=== PATIENT | female | born 1980 | race Caucasian/White ===

== ENCOUNTER 2017-09-09 20:42 | Emergency (ER) | payer MEDICAID ==
[2017-09-09] MEDS ORDERED: methylPREDNISolone Sodium Succinate 125 MG/2 ML SDV ONE (20:59)
[2017-09-09] MEDS ORDERED: diphenhydrAMINE 25 MG Cap ONE (21:00)
[2017-09-09] MEDS ORDERED: methylPREDNISolone Sodium Succinate 125 MG/2 ML SDV IM ONE (21:03)
[2017-09-09] MEDS ORDERED: diphenhydrAMINE 25 MG Cap PO ONE (21:03)
[2017-09-09 21:15] VITALS: BP 120/85
--- NOTE | 2017-09-09 21:35 | EDM.PDOC ---
ED HPI GENERAL MEDICAL PROBLEM - General Chief Complaint: Allergic Reaction Stated Complaint: ALLERGIC REACTION Time Seen by Provider: 09/09/17 21:15 Source of Information: Reports: Patient History Limitations: Reports: No Limitations - History of Present Illness INITIAL COMMENTS - FREE TEXT/NARRATIVE: 37-year-old female presents to the emergency room with complaints of reaction with associated blotchiness of her hands, and funny sensation in her throat. She denies difficulty breathing, shortness of breath. She denies any facial swelling. She states she had a couple beers this evening on her birthday and soon noticed some scratchiness and funny sensation in her throat and noticed blotching on her hands. She's had a similar episode with this also associated with alcohol a few years ago. She did stop drinking any alcohol for a year. She' s had a couple of drinks over the last 6 months and has not had recurrence until this evening. She took some Benadryl before coming in to the ER. No other complaints are voiced. Onset: Today Onset Date: 09/09/17 Onset Time: 20:30 Duration: Minutes: Location: Reports: Face, Lower Extremity, Left, Lower Extremity, Right Quality: Reports: Same as Previous Episode Severity: Mild Improves with: Reports: None Worsens with: Reports: Other (alcholol) Context: Reports: Activity Associated Symptoms: Reports: Rash. 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 Denies: Acetaminophen - Related Data Allergies Allergy/AdvReac Type Severity Reaction Status Date / Time No Known Drug Allergies Allergy Cannot Verified 09/09/17 21:15 Remember Home Meds: Home Meds Albuterol [Proventil Neb Soln] 0.63 mg NEB QIDRT PRN 05/12/16 [History] Albuterol/Ipratropium [DuoNeb 3.0-0.5 MG/3 ML] 3 ml INH QID PRN 05/12/16 [ History] Budesonide/Formoterol [Symbicort 160-4.5 Mcg Inhaler] 10.2 gm IH BID #2 hfa.aer.ad 05/12/16 [Rx] Montelukast Sodium [Singulair] 10 mg PO BEDTIME #30 tablet 05/12/16 [Rx] Ranitidine HCl [Zantac] 150 mg PO DAILY 07/11/16 [History] Fluticasone Propionate [Flonase Allergy Relief] 15.8 ml NS DAILY 10/23/16 [ History] Past Medical History - Past Health History Medical/Surgical History: Denies Medical/Surgical History HEENT History: Reports: Allergic Rhinitis, Impaired Vision, Sinusitis Respiratory History: Reports: Asthma Gastrointestinal History: Reports: GERD Genitourinary History: Reports: None 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 States she quit drinking about 1.5 years ago and has binge drank x1 since quitting. - Infectious Disease History Infectious Disease History: Reports: Chicken Pox - Past Surgical History Female Surgical History: Reports: Dilitation & Evacuation Social & Family History - Tobacco Use Smoking Status *Q: Former Smoker Years of Tobacco use: 14 Packs/Tins Daily: 2 Used Tobacco, but Quit: Yes Month Tobacco Last Used: 10 Second Hand Smoke Exposure: Yes - Caffeine Use Caffeine Use: Reports: Coffee, Soda - Recreational Drug Use Recreational Drug Use: Yes Drug Use in Last 12 Months: Yes Recreational Drug Type: Reports: Marijuana/Hashish Recreational Drug Use Frequency: Not Used In Over 1 Year - Living Situation & Occupation Living situation: Reports: Occupation: Unemployed ED ROS ALLERGIC REACTION - Review of Systems Review Of Systems: See Below Constitutional: Denies: Fever HEENT: Reports: Throat Swelling. Denies: Throat Pain Respiratory: Denies: Shortness of Breath, Wheezing, Cough Cardiovascular: Denies: Chest Pain GI/Abdominal: Denies: Abdominal Pain Musculoskeletal: Reports: No Symptoms Skin: Reports: Pruritis, Rash Neurological: Reports: No Symptoms Psychiatric: Reports: No Symptoms Hematologic/Lymphatic: Reports: No Symptoms Immunologic: Reports: No Symptoms ED EXAM GENERAL NO PERIP PULSE - Physical Exam Exam: See Below Exam Limited By: No Limitations General Appearance: Alert, WD/WN, No Apparent Distress Eye Exam: Bilateral Eye: EOMI, PERRL Nose: Normal Inspection Throat/Mouth: Normal Lips, Normal Teeth, Normal Gums, Normal Voice, No Airway Compromise, Other (mild swelling of the uvula) Head: Atraumatic, Normocephalic Neck: Normal Inspection, Supple Respiratory/Chest: No Respiratory Distress, Lungs Clear Cardiovascular: Normal Peripheral Pulses, Regular Rate, Rhythm Extremities: Normal Inspection, No Pedal Edema Neurological: Alert, Oriented, Normal Cognition, Normal Gait Psychiatric: Normal Affect, Normal Mood Skin Exam: Rash (bilateral hands) Course - Vital Signs Last Recorded V/S: Last Vital Signs Temp 98.1 F 09/09/17 21:11 Pulse 98 09/09/17 21:11 Resp 20 09/09/17 21:11 BP 120/85 09/09/17 21:11 Pulse Ox 96 09/09/17 21:11 - Orders/Labs/Meds Orders: Active Orders 24 hr Category Date Time Status Ranitidine [Zantac] Med 09/10/17 21:00 Ordered 300 mg PO BEDTIME Medication Orders Ranitidine HCl (Zantac) 300 mg PO BEDTIME LAURYN Last Admin: 09/09/17 21:54 Dose: 300 mg Meds: Medications Generic Name Dose Route Start Last Admin Trade Name Freq PRN Reason Stop Dose Admin Ranitidine HCl 300 mg 09/10/17 21:00 09/09/17 21:54 Zantac PO 300 mg BEDTIME LAURYN Administration Discontinued Medications Generic Name Dose Route Start Last Admin Trade Name Freq PRN Reason Stop Dose Admin Diphenhydramine HCl Confirm 09/09/17 21:00 09/09/17 21:04 Benadryl Administered 09/09/17 21:01 Not Given Dose 50 mg .ROUTE .STK-MED ONE Diphenhydramine HCl 50 mg 09/09/17 21:03 09/09/17 21:00 Benadryl PO 09/09/17 21:04 50 mg ONETIME ONE Administration Methylprednisolone Sodium Succinate Confirm 09/09/17 20:59 09/09/17 21:04 Solu-Medrol Administered 09/09/17 21:00 Not Given Dose 375 mg .ROUTE .STK-MED ONE Methylprednisolone Sodium Succinate 300 mg 09/09/17 21:03 09/09/17 21:10 Solu-Medrol IM 09/09/17 21:04 300 mg ONETIME ONE Administration Departure - Departure Time of Disposition: 22:11 Disposition: Home, Self-Care 01 Condition: Good Clinical Impression: Allergic reaction Qualifiers: Encounter type: initial encounter Qualified Code(s): T78.40XA - Allergy, unspecified, initial encounter - Discharge Information Instructions: Anaphylactic Reaction Referrals: Alansi Leblanc NP [Primary Care Provider] - Forms: ED Department Discharge Additional Instructions: 1. Benadryl 25-50 mg every 8 hours over the next 48 hours. 2. Avoid all alcohol. 3. Follow-up with your primary care in 48 hours. 4. Return to the ER if any of the above occurs, swelling of the face or lips, throat, increased difficulty breathing. - My Orders Last 24 Hours: My Active Orders 09/10/17 21:00 Ranitidine [Zantac] 300 mg PO BEDTIME - Assessment/Plan Last 24 Hours: My Active Orders 09/10/17 21:00 Ranitidine [Zantac] 300 mg PO BEDTIME Assessment:: Allergic reaction Plan: 1. Benadryl 25-50 mg every 8 hours over the next 48 hours. 2. Avoid all alcohol. 3. Follow-up with your primary care in 48 hours. 4. Return to the ER if any of the above occurs, swelling of the face or lips, throat, increased difficulty breathing.
== END 2017-09-09 22:10 | disposition home or self-care (01) ==
LOC: KA.ED 20:42
DX: T78.40XA Allergy, unspecified, initial encounter (principal); J45.909 Unspecified asthma, uncomplicated; Z87.891 Personal history of nicotine dependence; Z79.899 Other long term (current) drug therapy
CPT/HCPCS: 96372; 99283; A9270; J2930

== ENCOUNTER 2018-11-04 11:49 | Emergency (ER) | payer MEDICAID ==
[2018-11-04 12:21] VITALS: BP 140/88
--- NOTE | 2018-11-04 13:09 | EDM.PDOC ---
ED HPI GENERAL MEDICAL PROBLEM - General Chief Complaint: Respiratory Problem Stated Complaint: congested Time Seen by Provider: 11/04/18 12:45 Source of Information: Reports: Patient History Limitations: Reports: No Limitations - History of Present Illness INITIAL COMMENTS - FREE TEXT/NARRATIVE: Patient presents with itchy throat, stuffy nose, cough that started yesterday. She has asthma and has been wheezing recently because she is out of her Pulmicort and is waiting to get back on insurance to fill Rx. She is using her DuoNeb, albuterol inhaler and Singulair but no steroid. Two and a half weeks ago she had an exacerbation and was on oral steroids for a week but 3 days after finishing the course her wheezing returned. She thinks it will be 1-2 weeks yet before she can get insurance. 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: Reports: Other (see below) Other 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: duoneb at 10:30, albuterol MDI at 7 am Generalized Pain Score (Numeric/FACES): 6 - Related Data Allergies Allergy/AdvReac Type Severity Reaction Status Date / Time No Known Drug Allergies Allergy Cannot Verified 11/04/18 12:12 Remember Home Meds: Home Meds Albuterol/Ipratropium [DuoNeb 3.0-0.5 MG/3 ML] 3 ml INH QID 05/12/16 [History] Budesonide/Formoterol [Symbicort 160-4.5 Mcg Inhaler] 10.2 gm IH BID #2 hfa.aer.ad 05/12/16 [Rx] Montelukast Sodium [Singulair] 10 mg PO BEDTIME #30 tablet 05/12/16 [Rx] Ranitidine HCl [Zantac] 150 mg PO DAILY 07/11/16 [History] Fluticasone Propionate [Flonase Allergy Relief] 15.8 ml NS DAILY 10/23/16 [ History] Albuterol Sulfate [Proventil Hfa] 6.7 gm IH BID 11/04/18 [History] Past Medical History - Past Health History Medical/Surgical History: Denies Medical/Surgical History HEENT History: Reports: Allergic Rhinitis, Impaired Vision, Sinusitis Respiratory History: Reports: Asthma Gastrointestinal History: Reports: GERD Genitourinary History: Reports: None 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 States she quit drinking about 1.5 years ago and has binge drank x1 since quitting. - Infectious Disease History Infectious Disease History: Reports: Chicken Pox - Past Surgical History Female Surgical History: Reports: Dilitation & Evacuation Social & Family History - Tobacco Use Smoking Status *Q: Former Smoker Years of Tobacco use: 15 Packs/Tins Daily: 2 Used Tobacco, but Quit: Yes Month/Year Tobacco Last Used: 2017 Second Hand Smoke Exposure: Yes - Caffeine Use Caffeine Use: Reports: Coffee, Soda Other Caffeine Use: regular - Recreational Drug Use Recreational Drug Use: Yes Recreational Drug Type: Reports: Marijuana/Hashish Other Recreational Drug Type: quit using over 15 years Recreational Drug Use Frequency: Not Used In Over 6 Months - Living Situation & Occupation Living situation: Reports: Occupation: Unemployed ED ROS GENERAL - Review of Systems Review Of Systems: See Below Constitutional: Denies: Fever, Chills, Malaise, Weakness HEENT: Denies: Ear Pain, Throat Pain (doesn't hurt to swallow), Throat Swelling Respiratory: Reports: Shortness of Breath (mild-mod), Wheezing, Cough, Sputum ( clear) Cardiovascular: Denies: Chest Pain, Lightheadedness, Syncope Endocrine: Reports: No Symptoms GI/Abdominal: Denies: Abdominal Pain, Vomiting Musculoskeletal: Reports: No Symptoms Skin: Denies: Cyanosis, Jaundice, Mottled, Pallor, Diaphoresis Neurological: Denies: Confusion, Dizziness, Headache, Seizure, Syncope, Difficulty Walking, Weakness, Change in Speech Psychiatric: Denies: Agitation, Anxiety, Confusion ED EXAM, GENERAL - Physical Exam Exam: See Below Exam Limited By: No Limitations General Appearance: Alert, WD/WN, No Apparent Distress Eye Exam: Bilateral Eye: EOMI, Normal Inspection, PERRL Ears: Normal External Exam, Normal Canal, Hearing Grossly Normal, Normal TMs Nose: Normal Inspection, No Blood Throat/Mouth: Normal Inspection, Normal Lips, Normal Teeth, Normal Gums, Normal Oropharynx, Normal Voice, No Airway Compromise Head: Atraumatic, Normocephalic Neck: Normal Inspection, Supple, Non-Tender, Full Range of Motion Respiratory/Chest: No Respiratory Distress, No Accessory Muscle Use, Wheezing ( throughout). No: Decreased Breath Sounds, Crackles, Rales, Rhonchi, Stridor Cardiovascular: Regular Rate, Rhythm, No Murmur Extremities: Normal Range of Motion Neurological: Alert, Oriented, Normal Cognition, No Motor/Sensory Deficits Psychiatric: Normal Affect, Normal Mood Skin Exam: Warm, Dry, Intact, Normal Color, No Rash Course - Vital Signs Last Recorded V/S: Last Vital Signs Temp 99.6 F 11/04/18 12:15 Pulse 95 11/04/18 12:15 Resp 20 11/04/18 12:15 BP 140/88 11/04/18 12:15 Pulse Ox 95 11/04/18 12:15 - Orders/Labs/Meds Orders: Active Orders 24 hr Category Date Time Status predniSONE Med 11/04/18 13:45 Ordered 120 mg PO ONETIME Medication Orders Prednisone (Prednisone) 120 mg PO ONETIME LAURYN Last Admin: 11/04/18 13:44 Dose: 120 mg Meds: Medications Generic Name Dose Route Start Last Admin Trade Name Freq PRN Reason Stop Dose Admin Prednisone 120 mg 11/04/18 13:45 11/04/18 13:44 Prednisone PO 120 mg ONETIME LAURYN Administration Discontinued Medications Generic Name Dose Route Start Last Admin Trade Name Freq PRN Reason Stop Dose Admin Prednisone 120 mg 11/05/18 13:21 Prednisone PO 11/05/18 13:22 ONETIME ONE Prednisone Confirm 11/04/18 13:46 Prednisone Administered 11/04/18 13:47 Dose 10 mg .ROUTE .STK-MED ONE - Re-Assessments/Exams Free Text/Narrative Re-Assessment/Exam: 11/04/18 13:39 We looked for free samples and any other coupons for discounts on prescriptions until her insurance is restored. We did find a Symbicort coupon for free prescriptions for a year that we provided to patient and she was extremely thankful. We discussed that she may be able to reduce the length of time she is on the oral prednisone if she gets back on Symbicort soon. We also discussed her positive influenza A and she doesn't want to go on Tamiflu which is reasonable. After discussion of findings and treatment plan patient is discharged to home in stable condition. Departure - Departure Time of Disposition: 13:26 Disposition: Home, Self-Care 01 Condition: Good Clinical Impression: Influenza A Asthma exacerbation Qualifiers: Asthma severity: mild Asthma persistence: persistent Qualified Code(s): J45.31 - Mild persistent asthma with (acute) exacerbation URI (upper respiratory infection) Qualifiers: URI type: unspecified viral URI Qualified Code(s): J06.9 - Acute upper respiratory infection, unspecified - Discharge Information Instructions: Influenza, Adult, [id number] Referrals: Alanis Leblanc STATISTICAL PROGRAMMER [Primary Care Provider] - Forms: ED Department Discharge Additional Instructions: 1. Drink 8 cups of water daily. 2. Continue your asthma medications and get refills on the inhaled steroids as soon as possible. 3. Take the prednisone as directed. 4. Follow up with your PCP next week for recheck and to discuss options for getting your prescriptions while waiting for your insurance. - My Orders Last 24 Hours: My Active Orders 11/04/18 13:45 predniSONE 120 mg PO ONETIME - Assessment/Plan Last 24 Hours: My Active Orders 11/04/18 13:45 predniSONE 120 mg PO ONETIME
[2018-11-04] MEDS ORDERED: predniSONE 10 MG Tab PO SCH (13:45)
[2018-11-04] MEDS ORDERED: predniSONE 5 MG Tab ONE (13:46)
[2018-11-05] MEDS ORDERED: predniSONE 10 MG Tab PO ONE (13:21)
== END 2018-11-04 13:52 | disposition home or self-care (01) ==
LOC: KA.ED 11:49
DX: J10.1 Influenza due to other identified influenza virus with other respiratory manifestations (principal); J45.31 Mild persistent asthma with (acute) exacerbation; K21.9 Gastro-esophageal reflux disease without esophagitis; Z87.891 Personal history of nicotine dependence; Z79.899 Other long term (current) drug therapy
CPT/HCPCS: 87804; 99283; A9270

== ENCOUNTER 2018-11-08 14:33 | Inpatient (IN) | payer MEDICAID ==
[2018-11-08] MEDS ORDERED: HYDROmorphone 1 MG/ML Syringe IVPUSH ONE ×2 (14:47→15:40)
[2018-11-08] MEDS ORDERED: Ondansetron 4 MG/2 ML SDV IVPUSH ONE (14:47)
--- NOTE | 2018-11-08 15:00 | EDM.PDOC ---
ED HPI GENERAL MEDICAL PROBLEM - General Chief Complaint: Respiratory Problem Stated Complaint: Shortness of breath with chest pain Time Seen by Provider: 11/08/18 14:51 Source of Information: Reports: Patient, EMS, EMS Notes Reviewed, Provider History Limitations: Reports: No Limitations - History of Present Illness INITIAL COMMENTS - FREE TEXT/NARRATIVE: Patient is a 38-year-old female who presents via EMS to the emergency department this afternoon with a complaint of shortness of breath and chest pain. Patient was being seen at the [facility] in [facility], and the provider there felt that symptoms required aspirin and nitroglycerin. Both were given in the clinic, EKG was performed which showed sinus tachycardia, and patient was transported here. Upon presentation to the emergency department patient was in noticeable discomfort, and complaining of chest pain. Patient states that she was diagnosed with influenza A on November 04 and is currently only taking prednisone and Proventil inhaler. Patient states that she progressively was getting worse and had a follow-up visit today at the [facility]. Patient states that she does have a family cardiac history with a relative having a heart attack in their 50s. Patient denies fever, nausea, vomiting, diarrhea, abdominal pain, lower extremity edema, headache, any trauma, or history of similar symptoms in the past. Onset: Gradual Onset Date: 11/04/18 Duration: Day(s): Location: Reports: Chest Quality: Reports: Sharp Severity: Moderate Improves with: Reports: None Worsens with: Reports: None Context: Reports: Other (Diagnosed with influenza a on November 04). Denies: Activity, Exercise, Lifting, Sick Contact, Trauma Associated Symptoms: Reports: Chest Pain, Cough, Shortness of Breath. 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 Treatments, Nitroglycerin Middle Chest Pain Score (Numeric/FACES): 10 - Related Data Allergies Allergy/AdvReac Type Severity Reaction Status Date / Time No Known Drug Allergies Allergy Cannot Verified 11/08/18 15:05 Remember Home Meds: Home Meds Albuterol/Ipratropium [DuoNeb 3.0-0.5 MG/3 ML] 3 ml INH QID 05/12/16 [History] Montelukast Sodium [Singulair] 10 mg PO BEDTIME #30 tablet 05/12/16 [Rx] Ranitidine HCl [Zantac] 150 mg PO DAILY 07/11/16 [History] Fluticasone Propionate [Flonase Allergy Relief] 15.8 ml NS DAILY 10/23/16 [ History] Albuterol Sulfate [Proventil Hfa] 6.7 gm IH BID 11/04/18 [History] Acetaminophen [Acetaminophen Extra Strength] 1,000 mg PO Q6H PRN 11/08/18 [ History] Past Medical History - Past Health History Medical/Surgical History: Denies Medical/Surgical History HEENT History: Reports: Allergic Rhinitis, Impaired Vision, Sinusitis Respiratory History: Reports: Asthma Gastrointestinal History: Reports: GERD Genitourinary History: Reports: None LOOM DOFFER 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 States she quit drinking about 1.5 years ago and has binge drank x1 since quitting. - Infectious Disease History Infectious Disease History: Reports: Chicken Pox - Past Surgical History Female Surgical History: Reports: Dilitation & Evacuation Social & Family History - Caffeine Use Caffeine Use: Reports: Coffee, Soda Other Caffeine Use: regular - Living Situation & Occupation Living situation: Reports: Occupation: Unemployed ED ROS GENERAL - Review of Systems Review Of Systems: ROS reveals no pertinent complaints other than HPI. Constitutional: Reports: No Symptoms HEENT: Reports: No Symptoms Respiratory: Reports: Shortness of Breath Cardiovascular: Reports: Chest Pain Endocrine: Reports: No Symptoms GI/Abdominal: Reports: No Symptoms : Reports: No Symptoms Musculoskeletal: Reports: No Symptoms Skin: Reports: No Symptoms Neurological: Reports: No Symptoms Psychiatric: Reports: No Symptoms Hematologic/Lymphatic: Reports: No Symptoms Immunologic: Reports: No Symptoms ED EXAM, GENERAL - Physical Exam Exam: See Below Exam Limited By: No Limitations General Appearance: Alert, WD/WN, Moderate Distress Eye Exam: Bilateral Eye: Normal Inspection Nose: Normal Inspection Throat/Mouth: Normal Inspection, Normal Oropharynx, No Airway Compromise Head: Atraumatic, Normocephalic Neck: Normal Inspection Respiratory/Chest: Wheezing Cardiovascular: Tachycardia GI/Abdominal: Normal Bowel Sounds, Soft, Non-Tender, No Distention, No Abnormal Bruit, No Mass Back Exam: Normal Inspection. No: CVA Tenderness (L), CVA Tenderness (R) Extremities: Normal Inspection, No Pedal Edema Neurological: Alert, Oriented, Normal Cognition Psychiatric: Anxious Skin Exam: Warm, Dry, Intact, Normal Color, No Rash Lymphatic: No Adenopathy EKG INTERPRETATION EKG Date: 11/08/18 Time: 14:50 Rhythm: Other (Sinus tachycardia) Rate (Beats/Min): 136 [place]: Normal P-Wave: Present QRS: Normal ST-T: Normal QT: Normal Comparison: NA - No Prior EKG Course - Vital Signs Last Recorded V/S: Last Vital Signs Temp 96.9 F 11/08/18 15:33 Pulse 122 H 11/08/18 15:33 Resp 21 H 11/08/18 15:33 BP 125/84 11/08/18 15:33 Pulse Ox 95 11/08/18 15:34 - Orders/Labs/Meds Orders: Active Orders 24 hr Category Date Time Status Patient Status [ADT] Routine ADT 11/08/18 16:07 Ordered EKG Documentation Completion [RC] ASDIRECTED Care 11/08/18 14:48 Active Oxygen Therapy [RC] PRN Care 11/08/18 16:07 Ordered VTE/DVT Education [RC] PER UNIT ROUTINE Care 11/08/18 16:07 Ordered Vital Signs [RC] Q4H Care 11/08/18 16:07 Ordered CULTURE BLOOD [BC] Stat Lab 11/08/18 15:51 Ordered CULTURE BLOOD [BC] Stat Lab 11/08/18 15:51 Ordered CULTURE URINE [RM] Stat Lab 11/08/18 15:51 Ordered PROCALCITONIN [REF] Routine Lab 11/08/18 14:53 Received RESPIRATORY CULT [MREF] Stat Lab 11/08/18 15:36 Received UA W/MICROSCOPIC [URIN] Stat Lab 11/08/18 15:51 Ordered Sodium Chloride 0.9% @ 999 MLS/HR (1000ml) Med 11/08/18 15:47 Ordered Sodium Chloride 0.9% [Normal Saline] 1,000 ml IV .BOLUS Blood Culture x2 Reflex Set [OM.PC] Stat Oth 11/08/18 15:51 Ordered Resuscitation Status Routine Resus Stat 11/08/18 16:07 Ordered EKG 12 Lead [EK] Routine Ther 11/08/18 14:47 Ordered Medication Orders Sodium Chloride (Normal Saline) 1,000 mls @ 999 mls/hr IV .BOLUS ONE Stop: 11/08/18 16:47 Labs: Laboratory Tests 11/08/18 11/08/18 11/08/18 Range/Units 14:53 14:53 14:53 WBC 22.08 H (5.00-10.00) 10^3/uL RBC 4.97 (3.80-5.50) 10^6/uL Hgb 14.8 (12.0-16.0) g/dL Hct 43.4 (37.0-47.0) % MCV 87.3 (82.0-92.0) fL MCH 29.8 (27.0-31.0) pg MCHC 34.1 (32.0-36.0) g/dL RDW 14.3 (11.5-14.5) % Plt Count 271 (150-400) 10^3/uL MPV 9.2 (7.4-10.4) fL Immature Gran % (Auto) 0.4 (0.0-5.0) % Neut % (Auto) 83.6 H (50.0-70.0) % Lymph % (Auto) 10.2 L (20.0-40.0) % Allen % (Auto) 5.7 (2.0-8.0) % Eos % (Auto) 0.0 L (1.0-3.0) % Baso % (Auto) 0.1 (0.0-1.0) % Immature Gran # (Auto) 0.08 (0.00-0.50) 10^3/uL Neut # (Auto) 18.48 H (2.50-7.00) 10^3/uL Lymph # (Auto) 2.25 (1.00-4.00) 10^3/uL Allen # (Auto) 1.25 H (0.10-0.80) 10^3/uL Eos # (Auto) 0.00 L (0.10-0.30) 10^3/uL Baso # (Auto) 0.02 (0.00-0.10) 10^3/uL D-Dimer, Quantitative < 100 (<400) ng/mL Sodium 143 (136-145) mmol/L Potassium 3.3 (3.3-5.3) mmol/L Chloride 102 (98-115) mmol/L Carbon Dioxide 22.4 (21.0-32.0) mmol/L Anion Gap 21.9 H (5-15) mmol/L BUN 10 (6-25) mg/dL Creatinine 0.81 (0.51-1.17) mg/dL Est Cr Clr Drug Dosing TNP Estimated GFR (MDRD) > 60 mL/min Glucose 107 H (75 - 99) mg/dL Calcium 8.0 L (8.7-10.3) mg/dL Total Bilirubin 0.3 (0.2-1.0) mg/dL AST 68 H (15-37) U/L ALT 45 (12-78) U/L Alkaline Phosphatase 81 (46-116) IU/L Troponin I < 0.04 (0.00-0.070) ng/mL Total Protein 7.2 (6.4-8.2) g/dL Albumin 3.25 (3.00-4.80) g/dL Meds: Medications Generic Name Dose Route Start Last Admin Trade Name Freq PRN Reason Stop Dose Admin Sodium Chloride 1,000 mls @ 999 mls/hr 11/08/18 15:47 Normal Saline IV 11/08/18 16:47 .BOLUS ONE Discontinued Medications Generic Name Dose Route Start Last Admin Trade Name Freq PRN Reason Stop Dose Admin Hydromorphone HCl 0.5 mg 11/08/18 14:47 11/08/18 14:59 Dilaudid IVPUSH 11/08/18 14:48 0.5 mg ONETIME ONE Administration Hydromorphone HCl 0.5 mg 11/08/18 15:40 11/08/18 15:47 Dilaudid IVPUSH 11/08/18 15:41 0.5 mg ONETIME ONE Administration Methylprednisolone Sodium Succinate 125 mg 11/08/18 15:47 Solu-Medrol IVPUSH 11/08/18 15:48 ONETIME ONE Ondansetron HCl 4 mg 11/08/18 14:47 11/08/18 14:54 Zofran IVPUSH 11/08/18 14:48 4 mg ONETIME ONE Administration - Radiology Interpretation Free Text/Narrative:: Chest x-ray shows no acute cardiopulmonary process - Re-Assessments/Exams Free Text/Narrative Re-Assessment/Exam: 11/08/18 16:10 Patient afebrile, chest pain relieved, remains tachycardic at 120s, BP 123/71. Discussed case with Dr. Pina caro, patient will be admitted for observation. Blood and urine cultures ordered. Departure - Departure Time of Disposition: 16:12 Disposition: Refer to Observation Condition: Fair Clinical Impression: Influenza A Leukocytosis Qualifiers: Leukocytosis type: unspecified Qualified Code(s): D72.829 - Elevated white blood cell count, unspecified - Discharge Information Instructions: Influenza, Adult, [id number] Referrals: Alanis Leblanc, AIRCONDITIONING DRAFTING OFFICER [Primary Care Provider] - Forms: ED Department Discharge - My Orders Last 24 Hours: My Active Orders 11/08/18 14:47 EKG 12 Lead [EK] Routine 11/08/18 14:48 EKG Documentation Completion [RC] ASDIRECTED 11/08/18 14:53 PROCALCITONIN [REF] Routine 11/08/18 15:36 RESPIRATORY CULT [MREF] Stat 11/08/18 15:47 Sodium Chloride 0.9% @ 999 MLS/HR (1000ml) Sodium Chloride 0.9% [Normal Saline] 1,000 ml IV .BOLUS 11/08/18 15:51 CULTURE BLOOD [BC] Stat CULTURE BLOOD [BC] Stat CULTURE URINE [RM] Stat UA W/MICROSCOPIC [URIN] Stat Blood Culture x2 Reflex Set [OM.PC] Stat 11/08/18 16:07 Patient Status [ADT] Routine Oxygen Therapy [RC] PRN VTE/DVT Education [RC] PER UNIT ROUTINE Vital Signs [RC] Q4H Resuscitation Status Routine - Assessment/Plan Last 24 Hours: My Active Orders 11/08/18 14:47 EKG 12 Lead [EK] Routine 11/08/18 14:48 EKG Documentation Completion [RC] ASDIRECTED 11/08/18 14:53 PROCALCITONIN [REF] Routine 11/08/18 15:36 RESPIRATORY CULT [MREF] Stat 11/08/18 15:47 Sodium Chloride 0.9% @ 999 MLS/HR (1000ml) Sodium Chloride 0.9% [Normal Saline] 1,000 ml IV .BOLUS 11/08/18 15:51 CULTURE BLOOD [BC] Stat CULTURE BLOOD [BC] Stat CULTURE URINE [RM] Stat UA W/MICROSCOPIC [URIN] Stat Blood Culture x2 Reflex Set [OM.PC] Stat 11/08/18 16:07 Patient Status [ADT] Routine Oxygen Therapy [RC] PRN VTE/DVT Education [RC] PER UNIT ROUTINE Vital Signs [RC] Q4H Resuscitation Status Routine Assessment:: Influenza A, shortness of breath, chest pain Plan: Admitted for observation to Dr. Pina caro
[2018-11-08 15:33] LABS: ANION GAP 21.9 mmol/L (5-15); CHLORIDE,CL 102 mmol/L (98-115); SODIUM,NA 143 mmol/L (136-145)
--- NOTE | 2018-11-08 15:38 | CR ---
[id number] RAD/RAD Chest PA And Lateral EXAM: RAD Chest PA And Lateral CLINICAL DATA: CHEST PAIN COMPARISON: NO PREVIOUS SIMILAR EXAM IS AVAILABLE. FINDINGS: The lungs are clear. The cardiomediastinal contour is normal. The regional bones and soft tissues are unremarkable. IMPRESSION: NO ACUTE PROCESS. Surjit Chauhan MD 11/08/18 1536 Thank you for allowing us to participate in the care of your patient.
[2018-11-08] MEDS ORDERED: methylPREDNISolone Sodium Succinate 125 MG/2 ML SDV IVPUSH ONE (15:47)
[2018-11-08] MEDS ORDERED: Sodium Chloride 0.9% 1,000 ML IV ONE (15:47)
[2018-11-08] MEDS ORDERED: Indomethacin 50 MG Cap PO SCH (18:25)
[2018-11-08] MEDS ORDERED: Albuterol/Ipratropium 3.0-0.5 MG/3 ML Neb Soln NEB PRN (18:27)
[2018-11-08] MEDS ORDERED: [UNRECOGNIZED DRUG - REMARK] NS PRN (18:28)
[2018-11-08] MEDS: Oseltamivir 75 MG Cap PO SCH (18:41)
[2018-11-08] MEDS: Omeprazole 20 MG Cap.CR PO SCH (18:41)
[2018-11-08] MEDS ORDERED: Ibuprofen 600 MG Tab PO SCH (18:48)
[2018-11-08] MEDS: Ibuprofen 400 MG Tab PO SCH (19:32)
[2018-11-08] MEDS: Montelukast 10 MG Tab PO SCH (20:21)
[2018-11-08] MEDS ORDERED: Iopamidol 755 Mg/ML 75 ML Bottle IVPUSH ONE (21:05)
[2018-11-08] MEDS ORDERED: Sodium Chloride 0.9% 50 ML IV SCH (21:15)
[2018-11-08] MEDS: HYDROmorphone 1 MG/ML Syringe IVPUSH PRN (21:37)
[2018-11-08] MEDS ORDERED: Acetaminophen/HYDROcodone 325-5 MG Tab PO PRN (22:46)
[2018-11-09] MEDS: HYDROmorphone 1 MG/ML Syringe IVPUSH PRN (01:06)
[2018-11-09] MEDS ORDERED: Omeprazole 20 MG Cap.CR PO SCH (07:30)
[2018-11-09] MEDS: Omeprazole 20 MG Cap.CR PO SCH ×2 (07:46→17:12)
--- NOTE | 2018-11-09 07:56 | CT ---
[id number] CT/CT Chest W IV EXAM: CHEST CT WITH CONTRAST INDICATION: Chest pain and influenza A. COMPARISON: Chest radiograph same date. DISCUSSION: There are mild patchy airspace most prominent in the apical segment of the left lower lobe, but scattered throughout both lungs which is most consistent with pneumonia. Mild mediastinal lymphadenopathy is nonspecific, but likely reactive. No pleural or pericardial effusion. Normal heart size. Scattered diverticula in the partially imaged colon. Small sliding type hiatus hernia. Cholelithiasis without CT evidence of acute cholecystitis. The imaged upper abdomen and osseous structures are otherwise unremarkable. IMPRESSION: 1. Mild patchy bilateral infiltrates are most prominent in the left lower lobe. These are most consistent with infection and could represent a bacterial pneumonia superimposed on the reported influenza. Candido Gee MD 11/09/18 0755 Thank you for allowing us to participate in the care of your patient.
[2018-11-09 08:23] LABS: ANION GAP 13.2 mmol/L (5-15); CHLORIDE,CL 102 mmol/L (98-115); SODIUM,NA 138 mmol/L (136-145)
[2018-11-09] MEDS: Oseltamivir 75 MG Cap PO SCH ×2 (08:24→20:35)
[2018-11-09] MEDS: Ibuprofen 400 MG Tab PO SCH ×3 (08:24→18:34)
[2018-11-09] MEDS ORDERED: Nitroglycerin 0.4 MG Tab.SL SL PRN (08:41)
[2018-11-09] MEDS ORDERED: Atropine 0.1 MG/ML 10 ML Syringe IVPUSH PRN (08:41)
[2018-11-09] MEDS ORDERED: EPINEPHrine 1:10,000 1 MG/10 ML Syringe IVPUSH PRN (08:41)
[2018-11-09] MEDS ORDERED: Lidocaine 2% 100 MG/5 ML Syringe IVPUSH PRN (08:41)
--- NOTE | 2018-11-09 10:37 | PCM.HP ---
H&P History of Present Illness - General Date of Service: 11/09/18 Admit Problem/Dx: Admission Diagnosis/Problem Admission Diagnosis/Problem Influenza due to influenza A virus - History of Present Illness Initial Comments - Free Text/Narative: Leah, is a 38-year-old female who was admitted in observation through the ED due to shortness of breath and significant chest pain. He was evaluated at the [facility] day of admission for a routine follow-up from her recent ED visit in which she stated she started having chest pains approximately 10 AM that morning. Still complained of shortness of breath, scratchy throat with mucus production. She had significant chest pain 10/10 anterior chest however no radiation. In the clinic he was noted she has sinus tachycardia, EKG showed nonspecific T-wave abnormality, he received aspirin and nitroglycerin with no improvement of chest pain. She was subsequently transferred to the local ED at [place] for further workup. She has been positive for influenza A diagnosed November 04 during the ED visit. Ill family contacts with similar symptoms of influenza. Tamiflu was started last night. Middle Chest Pain Score (Numeric/FACES): 7 Back Pain Score (Numeric/FACES): 1 - Related Data Allergies/Adverse Reactions: Allergies Allergy/AdvReac Type Severity Reaction Status Date / Time No Known Drug Allergies Allergy Cannot Verified 11/08/18 15:05 Remember Home Medications: Home Meds Albuterol/Ipratropium [DuoNeb 3.0-0.5 MG/3 ML] 3 ml INH QID PRN 05/12/16 [ History] Montelukast Sodium [Singulair] 10 mg PO BEDTIME #30 tablet 05/12/16 [Rx] Ranitidine HCl [Zantac] 150 mg PO DAILY 07/11/16 [History] Fluticasone Propionate [Flonase Allergy Relief] 15.8 ml NS DAILY PRN 10/23/16 [ History] Albuterol Sulfate [Proventil Hfa] 6.7 gm IH QID PRN 11/04/18 [History] Acetaminophen [Acetaminophen Extra Strength] 1,000 mg PO Q6H PRN 11/08/18 [ History] Albuterol/Ipratropium [DuoNeb 3.0-0.5 MG/3 ML] 3 ml NEB Q6HR PRN #10 neb [Rx] Levofloxacin 750 mg PO DAILY #5 tablet 11/11/18 [Rx] Past Medical History - Past Health History Medical/Surgical History: Denies Medical/Surgical History HEENT History: Reports: Allergic Rhinitis, Impaired Vision, Sinusitis Respiratory History: Reports: Asthma Other Respiratory History: Diagnosed with influeza A on 11/04/18 Gastrointestinal History: Reports: GERD Genitourinary History: Reports: None 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 States she quit drinking about 1.5 years ago and has binge drank x1 since quitting. - Infectious Disease History Infectious Disease History: Reports: Chicken Pox, Influenza - Past Surgical History Head Surgeries/Procedures: Reports: None Female Surgical History: Reports: Dilitation & Evacuation Endocrine Surgical History: Reports: None Dermatological Surgical History: Reports: None Social & Family History - Family History HEENT: Reports: None Cardiac: Reports: IA (Early IA in her father's in her 50s,) Respiratory: Reports: Asthma GI: Reports: None : Reports: None OBGYN: Reports: None Musculoskeletal: Reports: None Neurological: Reports: None Psychiatric: Reports: None Endocrine/Metabolic: Reports: Diabetes, type II Hematologic: Reports: None Immunologic: Reports: None Dermatologic: Reports: None Oncologic: Reports: None - Tobacco Use Smoking Status *Q: Former Smoker Used Tobacco, but Quit: Yes Month/Year Tobacco Last Used: 1 month - Caffeine Use Caffeine Use: Reports: Coffee, Soda Other Caffeine Use: regular - Recreational Drug Use Recreational Drug Use: Yes Drug Use in Last 12 Months: No Recreational Drug Type: Reports: Marijuana/Hashish - Living Situation & Occupation Living situation: Reports: Occupation: Unemployed H&P Review of Systems - Review of Systems: Review Of Systems: See Below General: Reports: Malaise, Night Sweats HEENT: Reports: Post Nasal Drip, Sore Throat. Denies: Headaches Pulmonary: Reports: Wheezing, Cough, Sputum. Denies: Shortness of Breath, Hemoptysis Cardiovascular: Reports: Chest Pain (Chest pain has improved 3/10, ). Denies: Orthopnea, PND, Edema Gastrointestinal: Reports: No Symptoms Genitourinary: Reports: No Symptoms Musculoskeletal: Reports: No Symptoms Skin: Reports: No Symptoms Psychiatric: Denies: Anxiety Neurological: Reports: No Symptoms Hematologic/Lymphatic: Reports: No Symptoms Immunologic: Reports: Other (Asthma) Exam - Exam Exam: See Below - Vital Signs Vital Signs: Last Vital Signs Temp 97.1 F 11/09/18 06:10 Pulse 90 11/09/18 06:10 Resp 20 11/09/18 06:10 BP 111/79 11/09/18 06:10 Pulse Ox 94 L 11/09/18 07:16 Weight: 228 lb 11.2 oz - Exam Quality Assessment: DVT Prophylaxis. No: Supplemental Oxygen General: Alert, Oriented, Cooperative. No: Mild Distress HEENT: Mucosa Moist & [place] Neck: Supple Lungs: Rhonchi, Wheezing Cardiovascular: Tachycardia GI/Abdominal Exam: Soft, Non-Tender. No: Distended Rectal (Female) Exam: Deferred, Bloody Stool Back Exam: No: CVA Tenderness (L), CVA Tenderness (R) Extremities: No Pedal Edema Peripheral Pulses: 2+: Radial (L), Radial (R) Skin: Warm, Dry, Intact Neurological: Cranial Nerves Intact, Reflexes Equal Bilateral Neuro Extensive - Mental Status: Alert, Oriented x3, Normal Mood/Affect, Normal Cognition Neuro Extensive - Motor, Sensory, Reflexes: CN II-XII Intact, Normal Gait, Normal Reflexes Psychiatric: Alert, Normal Affect - Patient Data Lab Results Last 24 hrs: Laboratory Results - last 24 hr 11/08/18 11/08/18 11/08/18 Range/Units 14:53 14:53 14:53 WBC 22.08 H (5.00-10.00) 10^3/uL RBC 4.97 (3.80-5.50) 10^6/uL Hgb 14.8 (12.0-16.0) g/dL Hct 43.4 (37.0-47.0) % MCV 87.3 (82.0-92.0) fL MCH 29.8 (27.0-31.0) pg MCHC 34.1 (32.0-36.0) g/dL RDW 14.3 (11.5-14.5) % Plt Count 271 (150-400) 10^3/uL MPV 9.2 (7.4-10.4) fL Immature Gran % (Auto) 0.4 (0.0-5.0) % Neut % (Auto) 83.6 H (50.0-70.0) % Lymph % (Auto) 10.2 L (20.0-40.0) % Coleman % (Auto) 5.7 (2.0-8.0) % Eos % (Auto) 0.0 L (1.0-3.0) % Baso % (Auto) 0.1 (0.0-1.0) % Immature Gran # (Auto) 0.08 (0.00-0.50) 10^3/uL Neut # (Auto) 18.48 H (2.50-7.00) 10^3/uL Lymph # (Auto) 2.25 (1.00-4.00) 10^3/uL Coleman # (Auto) 1.25 H (0.10-0.80) 10^3/uL Eos # (Auto) 0.00 L (0.10-0.30) 10^3/uL Baso # (Auto) 0.02 (0.00-0.10) 10^3/uL Add Manual Diff Neutrophils % (Manual) (50-70) % Band Neutrophils % (4-12) % Lymphocytes % (Manual) (20-40) % Monocytes % (Manual) (2-8) % Absolute Neutrophils Band Neutrophils # Lymphocytes # (Manual) Monocytes # (Manual) ESR (0-20) mm/hr D-Dimer, Quantitative < 100 (<400) ng/mL Sodium 143 (136-145) mmol/L Potassium 3.3 (3.3-5.3) mmol/L Chloride 102 (98-115) mmol/L Carbon Dioxide 22.4 (21.0-32.0) mmol/L Anion Gap 21.9 H (5-15) mmol/L BUN 10 (6-25) mg/dL Creatinine 0.81 (0.51-1.17) mg/dL Est Cr Clr Drug Dosing TNP Estimated GFR (MDRD) > 60 mL/min Glucose 107 H (75 - 99) mg/dL Calcium 8.0 L (8.7-10.3) mg/dL Total Bilirubin 0.3 (0.2-1.0) mg/dL AST 68 H (15-37) U/L ALT 45 (12-78) U/L Alkaline Phosphatase 81 (46-116) IU/L Troponin I < 0.04 (0.00-0.070) ng/mL C-Reactive Protein (0.0-0.9) mg/dL Total Protein 7.2 (6.4-8.2) g/dL Albumin 3.25 (3.00-4.80) g/dL Specimen Type Urine Color (YELLOW) Urine Appearance (CLEAR) Urine pH (5.0-9.0) Ur Specific Powell (1.005-1.030) Urine Protein (NEGATIVE) mg/dL Urine Glucose (UA) (NEGATIVE) mg/dL Urine Ketones (NEGATIVE) mg/dL Urine Occult Blood (NEGATIVE) Urine Nitrite (NEGATIVE) Urine Bilirubin (NEGATIVE) Urine Urobilinogen (0.2-1.0) E.U./dL Ur Leukocyte Esterase (NEGATIVE) Urine RBC (0-5) /HPF Urine WBC (0-5) /HPF Ur Epithelial Cells /LPF Urine Bacteria (NONE TO FEW) /HPF Urine HCG, Qual (NEGATIVE) 11/08/18 11/08/18 11/08/18 Range/Units 16:30 18:48 18:53 WBC (5.00-10.00) 10^3/uL RBC (3.80-5.50) 10^6/uL Hgb (12.0-16.0) g/dL Hct (37.0-47.0) % MCV (82.0-92.0) fL MCH (27.0-31.0) pg MCHC (32.0-36.0) g/dL RDW (11.5-14.5) % Plt Count (150-400) 10^3/uL MPV (7.4-10.4) fL Immature Gran % (Auto) (0.0-5.0) % Neut % (Auto) (50.0-70.0) % Lymph % (Auto) (20.0-40.0) % Coleman % (Auto) (2.0-8.0) % Eos % (Auto) (1.0-3.0) % Baso % (Auto) (0.0-1.0) % Immature Gran # (Auto) (0.00-0.50) 10^3/uL Neut # (Auto) (2.50-7.00) 10^3/uL Lymph # (Auto) (1.00-4.00) 10^3/uL Coleman # (Auto) (0.10-0.80) 10^3/uL Eos # (Auto) (0.10-0.30) 10^3/uL Baso # (Auto) (0.00-0.10) 10^3/uL Add Manual Diff Neutrophils % (Manual) (50-70) % Band Neutrophils % (4-12) % Lymphocytes % (Manual) (20-40) % Monocytes % (Manual) (2-8) % Absolute Neutrophils Band Neutrophils # Lymphocytes # (Manual) Monocytes # (Manual) ESR 40 H (0-20) mm/hr D-Dimer, Quantitative (<400) ng/mL Sodium (136-145) mmol/L Potassium (3.3-5.3) mmol/L Chloride (98-115) mmol/L Carbon Dioxide (21.0-32.0) mmol/L Anion Gap (5-15) mmol/L BUN (6-25) mg/dL Creatinine (0.51-1.17) mg/dL Est Cr Clr Drug Dosing Estimated GFR (MDRD) mL/min Glucose (75 - 99) mg/dL Calcium (8.7-10.3) mg/dL Total Bilirubin (0.2-1.0) mg/dL AST (15-37) U/L ALT (12-78) U/L Alkaline Phosphatase (46-116) IU/L Troponin I (0.00-0.070) ng/mL C-Reactive Protein 3.3 H (0.0-0.9) mg/dL Total Protein (6.4-8.2) g/dL Albumin (3.00-4.80) g/dL Specimen Type Urincc Urine Color Yellow (YELLOW) Urine Appearance Clear (CLEAR) Urine pH 6.0 (5.0-9.0) Ur Specific [place] 1.020 (1.005-1.030) Urine Protein Negative (NEGATIVE) mg/dL Urine Glucose (UA) Negative (NEGATIVE) mg/dL Urine Ketones Negative (NEGATIVE) mg/dL Urine Occult Blood Negative (NEGATIVE) Urine Nitrite Negative (NEGATIVE) Urine Bilirubin Negative (NEGATIVE) Urine Urobilinogen 1.0 (0.2-1.0) E.U./dL Ur Leukocyte Esterase Negative (NEGATIVE) Urine RBC 0-5 (0-5) /HPF Urine WBC 0-5 (0-5) /HPF Ur Epithelial Cells Few /LPF Urine Bacteria Rare (NONE TO FEW) /HPF Urine HCG, Qual (NEGATIVE) 11/08/18 11/08/18 11/09/18 Range/Units 19:09 20:41 07:50 WBC 22.85 H (5.00-10.00) 10^3/uL RBC 4.48 (3.80-5.50) 10^6/uL Hgb 13.4 (12.0-16.0) g/dL Hct 39.4 (37.0-47.0) % MCV 87.9 (82.0-92.0) fL MCH 29.9 (27.0-31.0) pg MCHC 34.0 (32.0-36.0) g/dL RDW 14.4 (11.5-14.5) % Plt Count 254 (150-400) 10^3/uL MPV 9.0 (7.4-10.4) fL Immature Gran % (Auto) (0.0-5.0) % Neut % (Auto) (50.0-70.0) % Lymph % (Auto) (20.0-40.0) % Coleman % (Auto) (2.0-8.0) % Eos % (Auto) (1.0-3.0) % Baso % (Auto) (0.0-1.0) % Immature Gran # (Auto) (0.00-0.50) 10^3/uL Neut # (Auto) (2.50-7.00) 10^3/uL Lymph # (Auto) (1.00-4.00) 10^3/uL Coleman # (Auto) (0.10-0.80) 10^3/uL Eos # (Auto) (0.10-0.30) 10^3/uL Baso # (Auto) (0.00-0.10) 10^3/uL Add Manual Diff Yes Neutrophils % (Manual) 88 H (50-70) % Band Neutrophils % 4 (4-12) % Lymphocytes % (Manual) 3 L (20-40) % Monocytes % (Manual) 5 (2-8) % Absolute Neutrophils 20.11 Band Neutrophils # 0.91 Lymphocytes # (Manual) 0.69 Monocytes # (Manual) 1.14 ESR (0-20) mm/hr D-Dimer, Quantitative (<400) ng/mL Sodium (136-145) mmol/L Potassium (3.3-5.3) mmol/L Chloride (98-115) mmol/L Carbon Dioxide (21.0-32.0) mmol/L Anion Gap (5-15) mmol/L BUN (6-25) mg/dL Creatinine (0.51-1.17) mg/dL Est Cr Clr Drug Dosing Estimated GFR (MDRD) mL/min Glucose (75 - 99) mg/dL Calcium (8.7-10.3) mg/dL Total Bilirubin (0.2-1.0) mg/dL AST (15-37) U/L ALT (12-78) U/L Alkaline Phosphatase (46-116) IU/L Troponin I < 0.04 (0.00-0.070) ng/mL C-Reactive Protein (0.0-0.9) mg/dL Total Protein (6.4-8.2) g/dL Albumin (3.00-4.80) g/dL Specimen Type Urine Color (YELLOW) Urine Appearance (CLEAR) Urine pH (5.0-9.0) Ur Specific [place] (1.005-1.030) Urine Protein (NEGATIVE) mg/dL Urine Glucose (UA) (NEGATIVE) mg/dL Urine Ketones (NEGATIVE) mg/dL Urine Occult Blood (NEGATIVE) Urine Nitrite (NEGATIVE) Urine Bilirubin (NEGATIVE) Urine Urobilinogen (0.2-1.0) E.U./dL Ur Leukocyte Esterase (NEGATIVE) Urine RBC (0-5) /HPF Urine WBC (0-5) /HPF Ur Epithelial Cells /LPF Urine Bacteria (NONE TO FEW) /HPF Urine HCG, Qual Negative (NEGATIVE) 11/09/18 Range/Units 07:50 WBC (5.00-10.00) 10^3/uL RBC (3.80-5.50) 10^6/uL Hgb (12.0-16.0) g/dL Hct (37.0-47.0) % MCV (82.0-92.0) fL MCH (27.0-31.0) pg MCHC (32.0-36.0) g/dL RDW (11.5-14.5) % Plt Count (150-400) 10^3/uL MPV (7.4-10.4) fL Immature Gran % (Auto) (0.0-5.0) % Neut % (Auto) (50.0-70.0) % Lymph % (Auto) (20.0-40.0) % Coleman % (Auto) (2.0-8.0) % Eos % (Auto) (1.0-3.0) % Baso % (Auto) (0.0-1.0) % Immature Gran # (Auto) (0.00-0.50) 10^3/uL Neut # (Auto) (2.50-7.00) 10^3/uL Lymph # (Auto) (1.00-4.00) 10^3/uL Coleman # (Auto) (0.10-0.80) 10^3/uL Eos # (Auto) (0.10-0.30) 10^3/uL Baso # (Auto) (0.00-0.10) 10^3/uL Add Manual Diff Neutrophils % (Manual) (50-70) % Band Neutrophils % (4-12) % Lymphocytes % (Manual) (20-40) % Monocytes % (Manual) (2-8) % Absolute Neutrophils Band Neutrophils # Lymphocytes # (Manual) Monocytes # (Manual) ESR (0-20) mm/hr D-Dimer, Quantitative (<400) ng/mL Sodium 138 (136-145) mmol/L Potassium 3.6 (3.3-5.3) mmol/L Chloride 102 (98-115) mmol/L Carbon Dioxide 26.4 (21.0-32.0) mmol/L Anion Gap 13.2 (5-15) mmol/L BUN 10 (6-25) mg/dL Creatinine 0.57 (0.51-1.17) mg/dL Est Cr Clr Drug Dosing 95.18 Estimated GFR (MDRD) > 60 mL/min Glucose 114 H (75 - 99) mg/dL Calcium 7.8 L (8.7-10.3) mg/dL Total Bilirubin 0.4 (0.2-1.0) mg/dL AST 29 (15-37) U/L ALT 40 (12-78) U/L Alkaline Phosphatase 65 (46-116) IU/L Troponin I (0.00-0.070) ng/mL C-Reactive Protein (0.0-0.9) mg/dL Total Protein 6.6 (6.4-8.2) g/dL Albumin 2.78 L (3.00-4.80) g/dL Specimen Type Urine Color (YELLOW) Urine Appearance (CLEAR) Urine pH (5.0-9.0) Ur Specific Powell (1.005-1.030) Urine Protein (NEGATIVE) mg/dL Urine Glucose (UA) (NEGATIVE) mg/dL Urine Ketones (NEGATIVE) mg/dL Urine Occult Blood (NEGATIVE) Urine Nitrite (NEGATIVE) Urine Bilirubin (NEGATIVE) Urine Urobilinogen (0.2-1.0) E.U./dL Ur Leukocyte Esterase (NEGATIVE) Urine RBC (0-5) /HPF Urine WBC (0-5) /HPF Ur Epithelial Cells /LPF Urine Bacteria (NONE TO FEW) /HPF Urine HCG, Qual (NEGATIVE) Result Diagrams: 11/11/18 07:05 11/09/18 07:50 Problem List Initiated/Reviewed/Updated: Yes Orders Last 24hrs: Active Orders 24 hr Category Date Time Status Patient Status [ADT] Routine ADT 11/08/18 16:07 Ordered Cardiac Monitoring [RC] 0300,0700,1100,1500,1900,2300 Care 11/08/18 18:20 Active RT Aerosol Therapy [RC] .PRN Care 11/08/18 18:28 Active VTE/DVT Education [RC] PER UNIT ROUTINE Care 11/08/18 16:07 Active Vital Signs [RC] 0300,0700,1100,1500,1900,2300 Care 11/08/18 16:07 Active Heart Healthy Diet [DIET] Diet 11/09/18 Breakfast Active CULTURE BLOOD [BC] Stat Lab 11/08/18 16:19 Received CULTURE BLOOD [BC] Stat Lab 11/08/18 17:42 Received PROCALCITONIN [REF] Routine Lab 11/08/18 14:53 Received RESPIRATORY CULT [MREF] Stat Lab 11/08/18 15:36 Received Acetaminophen/HYDROcodone [[place] 325-5 MG] Med 11/08/18 22:46 Active 1 tab PO Q4H PRN Albuterol/Ipratropium [DuoNeb 3.0-0.5 MG/3 ML] Med 11/08/18 18:27 Active 3 ml NEB Q4HRRT PRN Fluticasone Propionate [Flonase] Med 11/08/18 21:00 Active 0 gm NASBOTH DAILY PRN HYDROmorphone [Dilaudid] Med 11/08/18 20:28 Active 0.5 mg IVPUSH Q1H PRN Ibuprofen [Motrin] Med 11/08/18 19:20 Active 800 mg PO TID Montelukast [Singulair] Med 11/08/18 21:00 Active 10 mg PO BEDTIME Omeprazole Med 11/08/18 18:24 Active 20 mg PO BIDAC Oseltamivir [Tamiflu] Med 11/08/18 18:30 Active 75 mg PO BID Blood Culture x2 Reflex Set [OM.PC] Stat Oth 11/08/18 15:51 Ordered Resuscitation Status Routine Resus Stat 11/08/18 16:07 Ordered EKG 12 Lead [EK] Routine Ther 11/08/18 14:47 Ordered Medication Orders Hydrocodone Bitart/Acetaminophen ([place] 325-5 Mg) 1 tab PO Q4H PRN PRN Reason: Pain Albuterol/Ipratropium (Duoneb 3.0-0.5 Mg/3 Ml) 3 ml NEB Q4HRRT PRN PRN Reason: Wheezing Last Admin: 11/08/18 20:10 Dose: 3 ml Fluticasone Propionate (Flonase) 0 gm NASBOTH DAILY PRN PRN Reason: Congestion Hydromorphone HCl (Dilaudid) 0.5 mg IVPUSH Q1H PRN PRN Reason: pain Last Admin: 11/09/18 01:06 Dose: 0.5 mg Admin: 11/08/18 21:37 Dose: 0.5 mg Ibuprofen (Motrin) 800 mg PO TID [facility] Last Admin: 11/09/18 08:24 Dose: 800 mg Admin: 11/08/18 19:32 Dose: 800 mg Montelukast Sodium (Singulair) 10 mg PO BEDTIME [facility] Last Admin: 11/08/18 20:21 Dose: 10 mg Omeprazole (Omeprazole) 20 mg PO BIDAC [facility] Last Admin: 11/09/18 07:46 Dose: 20 mg Admin: 11/08/18 18:41 Dose: 20 mg Oseltamivir Phosphate (Tamiflu) 75 mg PO BID LAURYN Last Admin: 11/09/18 08:24 Dose: 75 mg Admin: 11/08/18 18:41 Dose: 75 mg Assessment/Plan Comment:: History of present illness Leah, is a 38-year-old female who was admitted in observation through the ED due to shortness of breath and significant chest pain. He was evaluated at the [facility] day of admission for a routine follow-up from her recent ED visit in which she stated she started having chest pains approximately 10 AM that morning. Still complained of shortness of breath, scratchy throat with mucus production. She had significant chest pain 10/10 anterior chest however no radiation. In the clinic he was noted she has sinus tachycardia, EKG showed nonspecific T-wave abnormality, he received aspirin and nitroglycerin with no improvement of chest pain. She was subsequently transferred to the local ED at [place] for further workup. She has been positive for influenza A diagnosed November 04 during the ED visit. Ill family contacts with similar symptoms of influenza. Tamiflu was started last night. Other pertinent recent history; I had seen the patient approximately 2 weeks ago when she came into the [facility] due to cough shortness of breath and wheezing due to her asthma. Patient had been on symbicort however he stated has not been able to afford it due to her insurance company however she is expected to be able to afford it at some point soon. She has had asthamtic since 11 years old, was exercised induced but has gotten worse over the years, was a smoker. Smokes about 1x per week but has not smoked for about 3 weeks. Time she was Using nebs and is on Singulair, and Flonase for her allergies. She had been taking her nebulizers in am then about 4-6 hours but past had saw HER-2 weeks ago she had been using it often. morbid obese. I had given her a steroid burst, Pulmicort she stated she felt better however eventually came in for influenza A. She was given another ED burst of steroids just recently in the ED however she has not started them yet. Patient states that she does have a family cardiac history with a relative having a heart attack in their 50s. Patient denies fever, nausea, vomiting, diarrhea, abdominal pain, lower extremity edema, headache, any trauma, or history of similar symptoms in the past. There is a family history of an IA in a 1st degree relative under the age of 50. Pertinent diagnostics/findings Chest CT, patchy bilateral infiltrates more prominent in her left lower lobe consistent with likely bacterial pneumonia which is superimposed on influenza A. White count 22,000, thick tenacious yellowish sputum Primary hospital problems Influenza A on Tamiflu Pneumonia, CAP, likely bacterial component, start azithromycin Asthma, mild exacerbation, pharmacy consultation regarding affordability of medications Disposition, change to inpatient, respiratory precautions, removed telemetry, Add azithromycin along with ceftriaxone, assess peak flows, reduce prednisone change to oral, DVT prophylaxis, GI prophylaxis, change to scheduled SVITLANA/AC for now.
[2018-11-09] MEDS: cefTRIAXone 1 GM Vial IVPUSH SCH (11:14)
[2018-11-09] MEDS: Enoxaparin 40 MG/0.4 ML Syringe SUBCUT SCH (11:15)
[2018-11-09] MEDS: Sodium Chloride 0.9% 50 ML IV SCH (11:19)
[2018-11-09] MEDS: Azithromycin 500 MG in Sodium Chloride 0.9% 250 ML IV SCH (11:20)
[2018-11-09] MEDS: Albuterol/Ipratropium 3.0-0.5 MG/3 ML Neb Soln NEB SCH ×4 (11:26→20:37)
[2018-11-09] MEDS ORDERED: predniSONE 20 MG Tab PO ONE (12:00)
[2018-11-09] MEDS: Montelukast 10 MG Tab PO SCH (20:35)
[2018-11-10] MEDS: Albuterol/Ipratropium 3.0-0.5 MG/3 ML Neb Soln NEB SCH ×6 (01:07→21:18)
[2018-11-10] MEDS: Ibuprofen 400 MG Tab PO SCH ×2 (07:43→12:12)
[2018-11-10] MEDS: Omeprazole 20 MG Cap.CR PO SCH ×2 (07:43→17:03)
[2018-11-10] MEDS: Fluticasone Propionate Nasal Spray 16 GM Bottle NASBOTH PRN (07:45)
[2018-11-10] MEDS: Oseltamivir 75 MG Cap PO SCH ×2 (09:16→21:18)
--- NOTE | 2018-11-10 10:33 | PCM.PN ---
- General Info Date of Service: 11/10/18 Functional Status: Reports: Pain Controlled, Tolerating Diet. Denies: New Symptoms - Review of Systems General: Reports: Fever. Denies: Weakness, Fatigue, Malaise, Night Sweats HEENT: Reports: No Symptoms Pulmonary: Reports: Cough, Sputum, Wheezing Cardiovascular: Denies: Chest Pain, Palpitations, Orthopnea, PND, Edema Gastrointestinal: Reports: No Symptoms Genitourinary: Reports: No Symptoms Musculoskeletal: Reports: No Symptoms Skin: Reports: No Symptoms Neurological: Denies: Confusion Psychiatric: Reports: No Symptoms - Patient Data Vitals - Most Recent: Last Vital Signs Temp 99.3 F 11/10/18 06:28 Pulse 86 11/10/18 06:28 Resp 20 11/10/18 06:28 BP 103/63 11/10/18 06:28 Pulse Ox 93 L 11/10/18 06:28 Weight - Most Recent: 228 lb 11.2 oz I&O - Last 24 Hours: Intake & Output 11/09/18 11/10/18 11/10/18 22:59 06:59 14:59 Intake Total 200 200 Output Total 600 900 Balance -400 -700 Lab Results Last 24 Hours: Laboratory Results - last 24 hr 11/08/18 11/10/18 Range/Units 14:53 07:42 WBC 12.81 H D (5.00-10.00) 10^3/uL RBC 4.28 (3.80-5.50) 10^6/uL Hgb 12.8 (12.0-16.0) g/dL Hct 38.3 (37.0-47.0) % MCV 89.5 (82.0-92.0) fL MCH 29.9 (27.0-31.0) pg MCHC 33.4 (32.0-36.0) g/dL RDW 14.5 (11.5-14.5) % Plt Count 241 (150-400) 10^3/uL MPV 9.1 (7.4-10.4) fL Immature Gran % (Auto) 1.0 (0.0-5.0) % Neut % (Auto) 76.2 H (50.0-70.0) % Lymph % (Auto) 16.9 L (20.0-40.0) % [place] % (Auto) 5.7 (2.0-8.0) % Eos % (Auto) 0.1 L (1.0-3.0) % Baso % (Auto) 0.1 (0.0-1.0) % Immature Gran # (Auto) 0.13 (0.00-0.50) 10^3/uL Neut # (Auto) 9.76 H (2.50-7.00) 10^3/uL Lymph # (Auto) 2.17 (1.00-4.00) 10^3/uL [place] # (Auto) 0.73 (0.10-0.80) 10^3/uL Eos # (Auto) 0.01 L (0.10-0.30) 10^3/uL Baso # (Auto) 0.01 (0.00-0.10) 10^3/uL Procalcitonin <0.05 (<0.10) ng/mL Cyrus Results Last 24 Hours: Microbiology 11/08/18 15:36 Gram Stain - Final Sputum - Expectorated 11/08/18 17:42 Aerobic Blood Culture - Preliminary Blood - Venous NO GROWTH AFTER 1 DAY Anaerobic Blood Culture - Preliminary NO GROWTH AFTER 1 DAY 11/08/18 16:19 Aerobic Blood Culture - Preliminary Blood - Venous - Lab Draw NO GROWTH AFTER 1 DAY Anaerobic Blood Culture - Preliminary NO GROWTH AFTER 1 DAY Med Orders - Current: Current Medications Hydrocodone Bitart/Acetaminophen ([place] 325-5 Mg) 1 tab PO Q4H PRN PRN Reason: Pain Albuterol/Ipratropium (Duoneb 3.0-0.5 Mg/3 Ml) 3 ml NEB Q4HRRT [facility] Last Admin: 11/10/18 09:26 Dose: 3 ml Ceftriaxone Sodium (Rocephin) 1 gm IVPUSH Q24H [facility] Last Admin: 11/09/18 11:14 Dose: 1 gm Enoxaparin Sodium (Lovenox) 40 mg SUBCUT Q24H [facility] Last Admin: 11/09/18 11:15 Dose: 40 mg Fluticasone Propionate (Flonase) 0 gm NASBOTH DAILY PRN PRN Reason: Congestion Last Admin: 11/10/18 07:45 Dose: 2 spray Hydromorphone HCl (Dilaudid) 0.5 mg IVPUSH Q1H PRN PRN Reason: pain Last Admin: 11/09/18 01:06 Dose: 0.5 mg Azithromycin 500 mg/ Sodium (Chloride) 255 mls @ 255 mls/hr IV Q24H [facility] Last Admin: 11/09/18 11:20 Dose: 255 mls/hr Sodium Chloride (Normal Saline) 50 mls @ 100 mls/hr IV DAILY@1100 [facility] Last Admin: 11/09/18 11:19 Dose: 100 mls/hr Ibuprofen (Motrin) 800 mg PO TIDMEALS [facility] Last Admin: 11/10/18 07:43 Dose: 800 mg Montelukast Sodium (Singulair) 10 mg PO BEDTIME [facility] Last Admin: 11/09/18 20:35 Dose: 10 mg Omeprazole (Omeprazole) 20 mg PO BIDAC [facility] Last Admin: 11/10/18 07:43 Dose: 20 mg Oseltamivir Phosphate (Tamiflu) 75 mg PO BID [facility] Last Admin: 11/10/18 09:16 Dose: 75 mg Discontinued Medications Albuterol/Ipratropium (Duoneb 3.0-0.5 Mg/3 Ml) 3 ml NEB Q4HRRT PRN PRN Reason: Wheezing Last Admin: 11/08/18 20:10 Dose: 3 ml Atropine Sulfate (Atropine 0.1 Mg/Ml) 0 mg IVPUSH ASDIRECTED PRN PRN Reason: Heart Epinephrine HCl (Epinephrine 1:10,000) 1 mg IVPUSH ASDIRECTED PRN PRN Reason: Heart Hydromorphone HCl (Dilaudid) 0.5 mg IVPUSH ONETIME ONE Stop: 11/08/18 14:48 Last Admin: 11/08/18 14:59 Dose: 0.5 mg Hydromorphone HCl (Dilaudid) 0.5 mg IVPUSH ONETIME ONE Stop: 11/08/18 15:41 Last Admin: 11/08/18 15:47 Dose: 0.5 mg Sodium Chloride (Normal Saline) 1,000 mls @ 999 mls/hr IV .BOLUS ONE Stop: 11/08/18 16:47 Last Admin: 11/08/18 16:52 Dose: 999 mls/hr Sodium Chloride (Normal Saline) 50 mls @ 200 mls/hr IV ASDIRECTED [facility] Last Admin: 11/08/18 21:36 Dose: 200 mls/hr Ibuprofen (Motrin) 800 mg PO TID [facility] Last Admin: 11/09/18 07:07 Dose: Not Given Ibuprofen (Motrin) 800 mg PO TID [facility] Last Admin: 11/09/18 08:24 Dose: 800 mg Indomethacin (Indocin) 50 mg PO TIDMEALS [facility] Last Admin: 11/09/18 07:07 Dose: Not Given Iopamidol (Isovue-370 (76%)) 75 ml IVPUSH ONETIME ONE Stop: 11/08/18 21:06 Last Admin: 11/08/18 21:36 Dose: 75 ml Lidocaine HCl (Xylocaine 2%) 0 mg IVPUSH ASDIRECTED PRN PRN Reason: Heart Methylprednisolone Sodium Succinate (Solu-Medrol) 125 mg IVPUSH ONETIME ONE Stop: 11/08/18 15:48 Last Admin: 11/08/18 16:53 Dose: 125 mg Nitroglycerin (Nitrostat) 0.4 mg SL ASDIRECTED PRN PRN Reason: Heart Non-Formulary Medication (Fluticasone Propionate [Flonase Allergy Relief]) 15.8 ml NS DAILY PRN PRN Reason: Congestion Omeprazole (Omeprazole) 20 mg PO ACBREAKFAST [facility] Last Admin: 11/09/18 10:55 Dose: Not Given Ondansetron HCl (Zofran) 4 mg IVPUSH ONETIME ONE Stop: 11/08/18 14:48 Last Admin: 11/08/18 14:54 Dose: 4 mg Prednisone (Prednisone) 40 mg PO ONETIME ONE Stop: 11/09/18 12:01 Last Admin: 11/09/18 11:59 Dose: 40 mg - Exam Quality Assessment: No: Supplemental Oxygen General: Alert, Oriented, Cooperative, No Acute Distress Lungs: Wheezing (Late inspiratory wheeze bilateral posterior upper lobe). No: Rhonchi Cardiovascular: Regular Rate, Regular Rhythm GI/Abdominal Exam: Normal Bowel Sounds, Soft Back Exam: No: CVA Tenderness (L), CVA Tenderness (R) Extremities: No Pedal Edema Peripheral Pulses: 2+: Radial (R), Femoral (L) Skin: Warm, Dry, Intact Neurological: No New Focal Deficit Psy/Mental Status: Alert, Normal Affect, Normal Mood - Problem List Review Problem List Initiated/Reviewed/Updated: Yes - My Orders Last 24 Hours: My Active Orders 11/09/18 10:34 Admission Status [Patient Status] [ADT] Routine 11/09/18 10:45 Albuterol/Ipratropium [DuoNeb 3.0-0.5 MG/3 ML] 3 ml NEB Q4HRRT Enoxaparin [Lovenox] 40 mg SUBCUT Q24H cefTRIAXone [Rocephin] 1 gm IVPUSH Q24H 11/09/18 11:00 Azithromycin [Zithromax] 500 mg Sodium Chloride 0.9% [Normal Saline] 250 ml IV Q24H Sodium Chloride 0.9% [Normal Saline] 50 ml IV DAILY@1100 - Plan Plan:: History of present illness Leah, is a 38-year-old female who was admitted in observation through the ED due to shortness of breath and significant chest pain. He was evaluated at the [facility] day of admission for a routine follow-up from her recent ED visit in which she stated she started having chest pains approximately 10 AM that morning. Still complained of shortness of breath, scratchy throat with mucus production. She had significant chest pain 10/10 anterior chest however no radiation. In the clinic he was noted she has sinus tachycardia, EKG showed nonspecific T-wave abnormality, he received aspirin and nitroglycerin with no improvement of chest pain. She was subsequently transferred to the local ED at [place] for further workup. She has been positive for influenza A diagnosed November 04 during the ED visit. Ill family contacts with similar symptoms of influenza. Tamiflu was started last night. Other pertinent recent history; I had seen the patient approximately 2 weeks ago when she came into the [facility] due to cough shortness of breath and wheezing due to her asthma. Patient had been on symbicort however he stated has not been able to afford it due to her insurance company however she is expected to be able to afford it at some point soon. She has had asthamtic since 11 years old, was exercised induced but has gotten worse over the years, was a smoker. Smokes about 1x per week but has not smoked for about 3 weeks. Time she was Using nebs and is on Singulair, and Flonase for her allergies. She had been taking her nebulizers in am then about 4-6 hours but past had saw HER-2 weeks ago she had been using it often. morbid obese. I had given her a steroid burst, Pulmicort she stated she felt better however eventually came in for influenza A. She was given another ED burst of steroids just recently in the ED however she has not started them yet. Patient states that she does have a family cardiac history with a relative having a heart attack in their 50s. Patient denies fever, nausea, vomiting, diarrhea, abdominal pain, lower extremity edema, headache, any trauma, or history of similar symptoms in the past. There is a family history of an [place] in a 1st degree relative under the age of 50. Update today, no further chest pain, less cough however still some ongoing posterior upper wheezes however feels better today. Low-grade temperature only. White count decreased to 12,000, improving inflammatory markers, medically improving and feeling better today. Pertinent diagnostics/findings Chest CT, patchy bilateral infiltrates more prominent in her left lower lobe consistent with likely bacterial pneumonia which is superimposed on influenza A. White count 22,000, thick tenacious yellowish sputum Primary hospital problems Influenza A on Tamiflu Pneumonia, CAP, likely bacterial component, start azithromycin Asthma, mild exacerbation, pharmacy consultation regarding affordability of medications Disposition, continue inpatient, respiratory precautions, continue tapering oral prednisone, continue with azithromycin along with ceftriaxone, assess peak flows, DVT prophylaxis, GI prophylaxis, changed to scheduled SVITLANA/AC for now. Tamiflu Pharmacy consultation today and appears [place] [facility] does have a Symbicort inhaler (160) available FREE for patient, this will be mailed to her and would provide her one month until her Medicaid paperwork is processed. She will need close follow-up as outpatient. I do anticipate patient being discharged tomorrow.
[2018-11-10] MEDS: Sodium Chloride 0.9% 50 ML IV SCH (10:55)
[2018-11-10] MEDS: cefTRIAXone 1 GM Vial IVPUSH SCH (10:55)
[2018-11-10] MEDS: Azithromycin 500 MG in Sodium Chloride 0.9% 250 ML IV SCH (10:55)
[2018-11-10] MEDS: Enoxaparin 40 MG/0.4 ML Syringe SUBCUT SCH (10:55)
[2018-11-10] MEDS ORDERED: predniSONE 20 MG Tab PO ONE (12:00)
[2018-11-10] MEDS ORDERED: Sodium Chloride 0.9% 10 ML Syringe FLUSH PRN (13:18)
[2018-11-10] MEDS ORDERED: Ibuprofen 400 MG Tab PO PRN (15:01)
[2018-11-10] MEDS: Montelukast 10 MG Tab PO SCH (21:18)
[2018-11-11] MEDS: Albuterol/Ipratropium 3.0-0.5 MG/3 ML Neb Soln NEB SCH ×3 (01:08→09:00)
[2018-11-11 07:08] VITALS: BP 128/80
[2018-11-11] MEDS: Omeprazole 20 MG Cap.CR PO SCH (07:49)
[2018-11-11] MEDS: Oseltamivir 75 MG Cap PO SCH (09:00)
[2018-11-11] MEDS: Fluticasone Propionate Nasal Spray 16 GM Bottle NASBOTH PRN (09:04)
--- NOTE | 2018-11-11 10:39 | PCM.DCSUM1 ---
Discharge Summary - Hospital Course Diagnosis: Stroke: No - Discharge Data Discharge Date: 11/11/18 Discharge Disposition: Home, Self-Care 01 Condition: Good - Patient Instructions Diet: Regular Diet as Tolerated, Drink 8-10+ Glasses/Day Activity: Cough & Deep Breathe Driving: May Drive Today Showering/Bathing: May Shower Notify Provider of: Fever, Increased Pain, Nausea and/or Vomiting Other/Special Instructions: Report worsening wheezing or shortness of breath. Good handwashing avoid spreading contact - Discharge Plan *PRESCRIPTION DRUG MONITORING PROGRAM REVIEWED*: Not Applicable *COPY OF PRESCRIPTION DRUG MONITORING REPORT IN PATIENT NED: Not Applicable Prescriptions/Med Rec: Albuterol/Ipratropium [DuoNeb 3.0-0.5 MG/3 ML] 3 ml NEB Q6HR PRN #10 neb PRN Reason: Wheezing Levofloxacin 750 mg PO DAILY #5 tablet Home Medications: Home Meds Albuterol/Ipratropium [DuoNeb 3.0-0.5 MG/3 ML] 3 ml INH QID PRN 05/12/16 [ History] Montelukast Sodium [Singulair] 10 mg PO BEDTIME #30 tablet 05/12/16 [Rx] Ranitidine HCl [Zantac] 150 mg PO DAILY 07/11/16 [History] Fluticasone Propionate [Flonase Allergy Relief] 15.8 ml NS DAILY PRN 10/23/16 [ History] Albuterol Sulfate [Proventil Hfa] 6.7 gm IH QID PRN 11/04/18 [History] Acetaminophen [Acetaminophen Extra Strength] 1,000 mg PO Q6H PRN 11/08/18 [ History] Albuterol/Ipratropium [DuoNeb 3.0-0.5 MG/3 ML] 3 ml NEB Q6HR PRN #10 neb [Rx] Levofloxacin 750 mg PO DAILY #5 tablet 11/11/18 [Rx] Patient Handouts: Influenza, Adult, [id number] Referrals: Alanis Leblanc [employer] [Primary Care Provider] - (Follow-up with Kervin Thapa next week [facility]--patient's choice) - Discharge Summary/Plan Comment DC Time >30 min.: Yes Discharge Summary/Plan Comment: Final diagnosis Influenza A Pneumonia, CAP, Asthma, mild exacerbation Musculoskeletal spasm subscapular supraspinatus Costochondritis History summary 38-year-old female who was admitted in observation through the ED due to shortness of breath and significant chest pain. Leah was evaluated at the [facility] on the day of admission for a routine follow-up from her recent ED visit in which she stated she started having chest pains approximately 10 AM that morning. Still complained of shortness of breath, scratchy throat with mucus production. She had significant chest pain 10/10 anterior chest however no radiation in her symptoms. In the clinic he was noted she has sinus tachycardia, EKG showed nonspecific T-wave abnormality, she received aspirin and nitroglycerin with no improvement of chest pain. She was subsequently transferred to the local ED at [place] for further workup. She has been positive for influenza A diagnosed November 04 during the ED visit. Ill family contacts with similar symptoms of influenza. Tamiflu was started on the night of admission. Other pertinent recent history; I had seen the patient about 2 weeks prior when she came into the [facility] due to cough shortness of breath and wheezing due to her asthma. Patient had been on symbicort however he stated has not been able to afford it due to her insurance company however she is expected to be able to afford it at some point soon. She has had asthamtic since 11 years old, was exercised induced but has gotten worse over the years, was a smoker. Smokes about 1x per week but has not smoked for about 3 weeks. Time she was Using nebs and is on Singulair, and Flonase for her allergies. She had been taking her nebulizers in am then about 4-6 hours but past had saw her-2 weeks ago she had been using it often. morbid obese. I had given her a steroid burst, Pulmicort she stated she felt better however eventually came in for influenza A. She was given another ED burst of steroids just recently in the ED however she has not started them yet. Hospital course Initially patient had significant chest pain in which required multiple medication classifications is NSAIDs and narcotics nitroglycerin to improve in her symptoms. Over time her symptoms did improve. Her pain was significant and appeared out of proportion to physical exam, diagnostic studies, normal ECG, normal troponin and vital signs. It was some concern for possible PE and underwent chest CT which demonstrated patchy bilateral infiltrates more prominent in her left lower lobe consistent with likely bacterial pneumonia which is superimposed on influenza A. Biotics were started with ceftriaxone and azithromycin however her respiratory culture did return as beta streptococcal group A she was discharged on Levaquin. She did receive 3 days doses of antiviral Tamiflu however upon discharge patient was refusing due to cost prohibitive. She was given steroid taper which tolerated well. Her blood cultures came back normal, however her sputum culture did come back gram- positive cocci chains with beta strep. She was also treated for influenza A. Pharmacy was consulted to assess [facility] [email or web address] for Symbicort and one was found which will be sent her pharmacy within 48 hours. Medication changes/additions/adjustments upon discharge Duo nebs, every 6 hours when necessary until she receives Symbicort Levafloxacin 750 mg by mouth daily 5 days Symbicort 160 g/4.5 g, 2 puffs INH twice a day (will be shipped from [place] [email or web address] bank to her pharmacy) Refusing Tamiflu completion, cost prohibitive Ibuprofen, 400-600 mg by mouth when necessary with food every 6 hours Disposition, Patient will be discharged from the hospital with careful instructions and careful follow-up. Symbicort was found on the [place] [email or web address] baking site and will be sent to her pharmacy hopefully she will get this within 48 hours. - General Info Functional Status: Reports: Pain Controlled, Tolerating Diet, Ambulating, New Symptoms (Slight pain left upper scapular likely musculoskeletal), Incentive Spirometry - Review of Systems General: Denies: Fever, Weakness, Fatigue, Malaise, Chills, Night Sweats HEENT: Reports: No Symptoms Pulmonary: Reports: Cough (Arrived cough now), Wheezing (Wheezing slightly upper left lobe however much improved) Cardiovascular: Denies: Chest Pain, Palpitations, Dyspnea on Exertion, Orthopnea , PND, Edema, Lightheadedness Gastrointestinal: Reports: No Symptoms Genitourinary: Reports: No Symptoms Musculoskeletal: Reports: Back Pain (Left upper scapular) Skin: Reports: No Symptoms Neurological: Reports: No Symptoms Psychiatric: Reports: No Symptoms - Patient Data Vitals - Most Recent: Last Vital Signs Temp 98.9 F 11/11/18 07:00 Pulse 76 11/11/18 07:00 Resp 16 11/11/18 07:00 BP 128/80 11/11/18 07:00 Pulse Ox 98 11/11/18 09:06 Weight - Most Recent: 228 lb 11.2 oz I&O - Last 24 hours: Intake & Output 11/10/18 11/11/18 11/11/18 22:59 06:59 14:59 Intake Total 910 200 Output Total 1600 400 Balance -690 -200 Lab Results - Last 24 hrs: Laboratory Results - last 24 hr 11/11/18 Range/Units 07:05 WBC 11.91 H (5.00-10.00) 10^3/uL RBC 4.30 (3.80-5.50) 10^6/uL Hgb 13.1 (12.0-16.0) g/dL Hct 38.2 (37.0-47.0) % MCV 88.8 (82.0-92.0) fL MCH 30.5 (27.0-31.0) pg MCHC 34.3 (32.0-36.0) g/dL RDW 14.5 (11.5-14.5) % Plt Count 259 (150-400) 10^3/uL MPV 9.2 (7.4-10.4) fL Immature Gran % (Auto) 1.3 (0.0-5.0) % Neut % (Auto) 69.0 (50.0-70.0) % Lymph % (Auto) 23.2 (20.0-40.0) % [place] % (Auto) 5.7 (2.0-8.0) % Eos % (Auto) 0.6 L (1.0-3.0) % Baso % (Auto) 0.2 (0.0-1.0) % Immature Gran # (Auto) 0.16 (0.00-0.50) 10^3/uL Neut # (Auto) 8.22 H (2.50-7.00) 10^3/uL Lymph # (Auto) 2.76 (1.00-4.00) 10^3/uL [place] # (Auto) 0.68 (0.10-0.80) 10^3/uL Eos # (Auto) 0.07 L (0.10-0.30) 10^3/uL Baso # (Auto) 0.02 (0.00-0.10) 10^3/uL ISAIAH Results - Last 24 hrs: Microbiology 11/08/18 15:36 Respiratory Culture - Final Sputum - Expectorated Beta Streptococcus Group A Gram Stain - Final 11/08/18 17:42 Aerobic Blood Culture - Preliminary Blood - Venous NO GROWTH AFTER 2 DAYS Anaerobic Blood Culture - Preliminary NO GROWTH AFTER 2 DAYS 11/08/18 16:19 Aerobic Blood Culture - Preliminary Blood - Venous - Lab Draw NO GROWTH AFTER 2 DAYS Anaerobic Blood Culture - Preliminary NO GROWTH AFTER 2 DAYS Med Orders - Current: Current Medications Hydrocodone Bitart/Acetaminophen ([place] 325-5 Mg) 1 tab PO Q4H PRN PRN Reason: Pain Albuterol/Ipratropium (Duoneb 3.0-0.5 Mg/3 Ml) 3 ml NEB Q4HRRT [facility] Last Admin: 11/11/18 09:00 Dose: 3 ml Ceftriaxone Sodium (Rocephin) 1 gm IVPUSH Q24H [facility] Last Admin: 11/10/18 10:55 Dose: 1 gm Enoxaparin Sodium (Lovenox) 40 mg SUBCUT Q24H [facility] Last Admin: 11/10/18 10:55 Dose: 40 mg Fluticasone Propionate (Flonase) 0 gm NASBOTH DAILY PRN PRN Reason: Congestion Last Admin: 11/11/18 09:04 Dose: 2 spray Hydromorphone HCl (Dilaudid) 0.5 mg IVPUSH Q1H PRN PRN Reason: pain Last Admin: 11/09/18 01:06 Dose: 0.5 mg Azithromycin 500 mg/ Sodium (Chloride) 255 mls @ 255 mls/hr IV Q24H [facility] Last Admin: 11/10/18 10:55 Dose: 255 mls/hr Sodium Chloride (Normal Saline) 50 mls @ 100 mls/hr IV DAILY@1100 [facility] Last Admin: 11/10/18 10:55 Dose: 100 mls/hr Ibuprofen (Motrin) 400 mg PO TIDMEALS PRN PRN Reason: fever/pain Last Admin: 11/11/18 09:04 Dose: 400 mg Montelukast Sodium (Singulair) 10 mg PO BEDTIME [facility] Last Admin: 11/10/18 21:18 Dose: 10 mg Omeprazole (Omeprazole) 20 mg PO BIDAC [facility] Last Admin: 11/11/18 07:49 Dose: 20 mg Oseltamivir Phosphate (Tamiflu) 75 mg PO BID [facility] Last Admin: 11/11/18 09:00 Dose: 75 mg Sodium Chloride (Saline Flush) 10 ml FLUSH Q8HR PRN PRN Reason: Keep Vein Open Last Admin: 11/10/18 17:07 Dose: 10 ml Discontinued Medications Albuterol/Ipratropium (Duoneb 3.0-0.5 Mg/3 Ml) 3 ml NEB Q4HRRT PRN PRN Reason: Wheezing Last Admin: 11/08/18 20:10 Dose: 3 ml Atropine Sulfate (Atropine 0.1 Mg/Ml) 0 mg IVPUSH ASDIRECTED PRN PRN Reason: Heart Epinephrine HCl (Epinephrine 1:10,000) 1 mg IVPUSH ASDIRECTED PRN PRN Reason: Heart Hydromorphone HCl (Dilaudid) 0.5 mg IVPUSH ONETIME ONE Stop: 11/08/18 14:48 Last Admin: 11/08/18 14:59 Dose: 0.5 mg Hydromorphone HCl (Dilaudid) 0.5 mg IVPUSH ONETIME ONE Stop: 11/08/18 15:41 Last Admin: 11/08/18 15:47 Dose: 0.5 mg Sodium Chloride (Normal Saline) 1,000 mls @ 999 mls/hr IV .BOLUS ONE Stop: 11/08/18 16:47 Last Admin: 11/08/18 16:52 Dose: 999 mls/hr Sodium Chloride (Normal Saline) 50 mls @ 200 mls/hr IV ASDIRECTED [facility] Last Admin: 11/08/18 21:36 Dose: 200 mls/hr Ibuprofen (Motrin) 800 mg PO TID [facility] Last Admin: 11/09/18 07:07 Dose: Not Given Ibuprofen (Motrin) 800 mg PO TID [facility] Last Admin: 11/09/18 08:24 Dose: 800 mg Ibuprofen (Motrin) 800 mg PO TIDMEALS [facility] Last Admin: 11/10/18 12:12 Dose: 800 mg Indomethacin (Indocin) 50 mg PO TIDMEALS [facility] Last Admin: 11/09/18 07:07 Dose: Not Given Iopamidol (Isovue-370 (76%)) 75 ml IVPUSH ONETIME ONE Stop: 11/08/18 21:06 Last Admin: 11/08/18 21:36 Dose: 75 ml Lidocaine HCl (Xylocaine 2%) 0 mg IVPUSH ASDIRECTED PRN PRN Reason: Heart Methylprednisolone Sodium Succinate (Solu-Medrol) 125 mg IVPUSH ONETIME ONE Stop: 11/08/18 15:48 Last Admin: 11/08/18 16:53 Dose: 125 mg Nitroglycerin (Nitrostat) 0.4 mg SL ASDIRECTED PRN PRN Reason: Heart Non-Formulary Medication (Fluticasone Propionate [Flonase Allergy Relief]) 15.8 ml NS DAILY PRN PRN Reason: Congestion Omeprazole (Omeprazole) 20 mg PO ACBREAKFAST [facility] Last Admin: 11/09/18 10:55 Dose: Not Given Ondansetron HCl (Zofran) 4 mg IVPUSH ONETIME ONE Stop: 11/08/18 14:48 Last Admin: 11/08/18 14:54 Dose: 4 mg Prednisone (Prednisone) 40 mg PO ONETIME ONE Stop: 11/09/18 12:01 Last Admin: 11/09/18 11:59 Dose: 40 mg Prednisone (Prednisone) 20 mg PO ONETIME ONE Stop: 11/10/18 12:01 Last Admin: 11/10/18 12:12 Dose: 20 mg - Exam Quality Assessment: Denies: Supplemental Oxygen, Skin Breakdown General: Reports: Alert, Oriented, Cooperative, No Acute Distress Neck: Reports: No JVD Lungs: Reports: Wheezing (Slight late is between wheeze left mid to upper lobe) . Denies: Crackles, Rales, Rhonchi, Rub Cardiovascular: Reports: Regular Rate, Regular Rhythm GI/Abdominal Exam: Soft, Non-Tender Rectal (Female) Exam: Deferred Back Exam: Reports: Muscle Spasm (Muscle spasm left supraspinatus scapular). Denies: CVA Tenderness (L), CVA Tenderness (R) Extremities: No Pedal Edema Skin: Reports: Warm, Dry, Intact Neurological: Reports: No New Focal Deficit Psy/Mental Status: Reports: Alert, Normal Affect, Labile Mood
== END 2018-11-11 11:00 | disposition home or self-care (01) | DRG 194 ==
LOC: KA.ED 14:33 → KA.MS 16:07 → OBSVTOIN 11-09 10:34
PROVIDERS: ADMIT Physician Assistant Surgical; ATTEND Family Medicine
DX: J10.08 Influenza due to other identified influenza virus with other specified pneumonia (principal); Z68.42 Body mass index [BMI] 45.0-49.9, adult; J15.4 Pneumonia due to other streptococci; J45.901 Unspecified asthma with (acute) exacerbation; E66.01 Morbid (severe) obesity due to excess calories; M62.838 Other muscle spasm; M94.0 Chondrocostal junction syndrome [Tietze]; F17.210 Nicotine dependence, cigarettes, uncomplicated; K21.9 Gastro-esophageal reflux disease without esophagitis; Z79.899 Other long term (current) drug therapy; Z79.51 Long term (current) use of inhaled steroids; Z82.49 Family history of ischemic heart disease and other diseases of the circulatory system
CPT/HCPCS: 36415; 71046; 71260; 80053; 81001; 81025; 84145; 84484; 85025; 85379; 85651; 86140; 87040; 87070; 87205; 93005; 94640; 96361; 96374; 96375; 96376; 99283; 99285; A9270-GY; G0378; J0456; J0696; J1170; J1650; J2405; J2930; J7030; J7050; J7620-GY; Q9967

== ENCOUNTER 2019-03-09 12:48 | Emergency (ER) | payer MEDICAID, OTHER ==
[2019-03-09 13:19] VITALS: BP 138/86
[2019-03-09] MEDS ORDERED: methylPREDNISolone Sodium Succinate 125 MG/2 ML SDV IM ONE (14:35)
--- NOTE | 2019-03-09 14:35 | EDM.PDOC ---
ED HPI GENERAL MEDICAL PROBLEM - General Chief Complaint: Asthma Stated Complaint: ASTHMA PROBLEMS Time Seen by Provider: 03/09/19 14:05 Source of Information: Reports: Patient History Limitations: Reports: No Limitations - History of Present Illness INITIAL COMMENTS - FREE TEXT/NARRATIVE: Patient presents with dyspnea and wheezing. She has asthma and seasonal allergies and usually at least a couple times a year she gets flares like this. She uses Symbicort, albuterol inhaler and DuoNebs at home. She has done the DuoNeb as often as 2-4 hours the last two days and she just can't get the improvement she needs. She has also had a productive cough the past 3 days. - Related Data Allergies Allergy/AdvReac Type Severity Reaction Status Date / Time No Known Drug Allergies Allergy Cannot Verified 03/09/19 13:19 Remember Home Meds: Home Meds Montelukast Sodium [Singulair] 10 mg PO BEDTIME #30 tablet 05/12/16 [Rx] Ranitidine HCl [Zantac] 150 mg PO DAILY 07/11/16 [History] Fluticasone Propionate [Flonase Allergy Relief] 15.8 ml NS DAILY PRN 10/23/16 [ History] Albuterol Sulfate [Proventil Hfa] 6.7 gm IH QID PRN 11/04/18 [History] Acetaminophen [Acetaminophen Extra Strength] 1,000 mg PO Q6H PRN 11/08/18 [ History] Albuterol/Ipratropium [DuoNeb 3.0-0.5 MG/3 ML] 3 ml NEB Q6HR PRN #10 neb [Rx] Budesonide/Formoterol Fumarate [Symbicort 80-4.5 Mcg Inhaler] 2 puff INH BID [History] Ibuprofen 600 mg PO DAILY PRN 03/09/19 [History] Past Medical History - Past Health History Medical/Surgical History: Denies Medical/Surgical History HEENT History: Reports: Allergic Rhinitis, Impaired Vision, Sinusitis Respiratory History: Reports: Asthma Other Respiratory History: Diagnosed with influeza A on 11/04/18 Gastrointestinal History: Reports: GERD Genitourinary History: Reports: None STABLEHAND 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 States she quit drinking about 1.5 years ago and has binge drank x1 since quitting. - Infectious Disease History Infectious Disease History: Reports: Chicken Pox, Influenza - Past Surgical History Head Surgeries/Procedures: Reports: None Female Surgical History: Reports: Dilitation & Evacuation Endocrine Surgical History: Reports: None Dermatological Surgical History: Reports: None Social & Family History - Family History Family Medical History: Noncontributory HEENT: Reports: None Cardiac: Reports: [place] (Early DE in her father's in her 50s,) Respiratory: Reports: Asthma GI: Reports: None : Reports: None OBGYN: Reports: None Musculoskeletal: Reports: None Neurological: Reports: None Psychiatric: Reports: None Endocrine/Metabolic: Reports: Diabetes, type II Hematologic: Reports: None Immunologic: Reports: None Dermatologic: Reports: None Oncologic: Reports: None - Caffeine Use Caffeine Use: Reports: Coffee, Soda Other Caffeine Use: regular - Living Situation & Occupation Living situation: Reports: Occupation: Unemployed ED ROS GENERAL - Review of Systems Review Of Systems: See Below Constitutional: Denies: Fever (felt a little warm but didn't check temp), Malaise, Weakness HEENT: Denies: Ear Pain, Throat Pain, Vision Change Respiratory: Reports: Shortness of Breath, Wheezing, Cough, Sputum Cardiovascular: Denies: Chest Pain, Lightheadedness, Syncope Endocrine: Denies: Fatigue GI/Abdominal: Denies: Abdominal Pain, Diarrhea, Vomiting : Reports: No Symptoms Musculoskeletal: Reports: No Symptoms Skin: Denies: Cyanosis, Jaundice, Mottled, Pallor, Diaphoresis Neurological: Denies: Confusion, Dizziness, Headache, Syncope, Trouble Speaking , Difficulty Walking Psychiatric: Denies: Agitation, Anxiety, Confusion ED EXAM, GENERAL - Physical Exam Exam: See Below Exam Limited By: No Limitations General Appearance: Alert, WD/WN, No Apparent Distress Eye Exam: Bilateral Eye: EOMI, Normal Inspection, PERRL Ears: Normal External Exam, Hearing Grossly Normal Nose: Normal Inspection, No Blood Throat/Mouth: Normal Inspection, Normal Lips, Normal Teeth, Normal Gums, Normal Oropharynx, Normal Voice, No Airway Compromise Head: Atraumatic, Normocephalic Neck: Normal Inspection, Supple, Non-Tender, Full Range of Motion Respiratory/Chest: No Accessory Muscle Use, Rales (faint-possible), Rhonchi ( mild), Wheezing (throughout) Cardiovascular: Regular Rate, Rhythm, No Murmur Neurological: Alert, Oriented, Normal Cognition, No Motor/Sensory Deficits Psychiatric: Normal Affect, Normal Mood Skin Exam: Warm, Dry, Intact, Normal Color, No Rash Course - Vital Signs Last Recorded V/S: Last Vital Signs Temp 98 F 03/09/19 13:14 Pulse 85 03/09/19 13:14 Resp 16 03/09/19 13:14 BP 138/86 03/09/19 13:14 Pulse Ox 97 03/09/19 13:14 - Re-Assessments/Exams Free Text/Narrative Re-Assessment/Exam: 03/09/19 16:01 CXR is normal. Albuterol neb and Solu-medrol 125 mg IM were given. 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 She will filler picker the Z- pack on her way to get started on it ANDRE[place]. Discussed findings and treatment plan and patient discharged in stable condition. Departure - Departure Time of Disposition: 15:56 Disposition: Home, Self-Care 01 Condition: Good Clinical Impression: Seasonal allergies Asthma exacerbation Qualifiers: Asthma severity: mild Asthma persistence: persistent Qualified Code(s): J45.31 - Mild persistent asthma with (acute) exacerbation Acute bronchitis Qualifiers: Bronchitis organism: unspecified organism Qualified Code(s): J20.9 - Acute bronchitis, unspecified - Discharge Information Referrals: Alanis Leblanc SCOURING PADS SUPERVISOR [Primary Care Provider] - Additional Instructions: 1. Start the Zithromax right away. 2. Start the Prednisone tomorrow. 3. Continue your regular medications as directed. 4. Follow up with your PCP on Tuesday or Tuesday. 5. Return to ER as needed.
[2019-03-09] MEDS ORDERED: Albuterol 0.083% 2.5 MG/3 ML Neb Soln NEB ONE (14:36)
--- NOTE | 2019-03-09 15:38 | CR ---
[id number] RAD/RAD Chest PA And Lateral EXAM: RAD Chest PA And Lateral INDICATION: COUGH, DYSPNEA. COMPARISON: None. DISCUSSION: Cardiomediastinal silhouette is normal in size and contour. No infiltrate, effusion, pneumothorax, or edema. IMPRESSION: Negative examination of the chest. Maxim Pugh MD 03/09/19 [id number] Thank you for allowing us to participate in the care of your patient.
== END 2019-03-09 16:08 | disposition home or self-care (01) ==
LOC: KA.ED 12:48
DX: J45.31 Mild persistent asthma with (acute) exacerbation (principal); J20.9 Acute bronchitis, unspecified; K21.9 Gastro-esophageal reflux disease without esophagitis; Z79.899 Other long term (current) drug therapy
CPT/HCPCS: 71046; 94640; 96372; 99284-25; J2930; J7613-GY

== ENCOUNTER 2019-03-18 12:21 | Emergency (ER) | payer MEDICAID ==
[2019-03-18] MEDS ORDERED: Albuterol/Ipratropium 3.0-0.5 MG/3 ML Neb Soln NEB ONE ×3 (12:31→13:19)
--- NOTE | 2019-03-18 12:36 | EDM.PDOC ---
ED HPI GENERAL MEDICAL PROBLEM - General Chief Complaint: Respiratory Problem Stated Complaint: ASTHMA ATTACK Time Seen by Provider: 03/18/19 12:21 Source of Information: Reports: Patient History Limitations: Reports: No Limitations - History of Present Illness INITIAL COMMENTS - FREE TEXT/NARRATIVE: 38 YO WF presents to ER complaining of asthma attack while at work today. Pt was seen in ER 1 week ago for the same and was started on zpak, prednisone and albuterol therapy. Pt reports her symptoms improved until today at work. Pt denies any fever/chills, no chest pain. no nausea/vomiting or dizziness. Pt with longstanding history of asthma and has had difficulties in the past with access to her medications due to costs. Onset: Today Duration: Chronic Location: Reports: Chest Quality: Reports: Other (tightness) Improves with: Reports: Rest Worsens with: Reports: Breathing Associated Symptoms: Reports: Cough, Shortness of Breath. Denies: Diaphoresis, Fever/Chills, Nausea/Vomiting Treatments BUSINESS DEVELOPMENT ANALYST: Reports: Other Medication(s) Other Treatments BUSINESS DEVELOPMENT ANALYST: inhaler - Related Data Allergies Allergy/AdvReac Type Severity Reaction Status Date / Time No Known Drug Allergies Allergy Cannot Verified 03/09/19 13:19 Remember Home Meds: Home Meds Montelukast Sodium [Singulair] 10 mg PO BEDTIME #30 tablet 05/12/16 [Rx] Ranitidine HCl [Zantac] 150 mg PO DAILY 07/11/16 [History] Fluticasone Propionate [Flonase Allergy Relief] 15.8 ml NS DAILY PRN 10/23/16 [ History] Albuterol Sulfate [Proventil Hfa] 6.7 gm IH QID PRN 11/04/18 [History] Acetaminophen [Acetaminophen Extra Strength] 1,000 mg PO Q6H PRN 11/08/18 [ History] Albuterol/Ipratropium [DuoNeb 3.0-0.5 MG/3 ML] 3 ml NEB Q6HR PRN #10 neb [Rx] Budesonide/Formoterol Fumarate [Symbicort 80-4.5 Mcg Inhaler] 2 puff INH BID [History] Ibuprofen 600 mg PO DAILY PRN 03/09/19 [History] Albuterol [Proventil Neb Soln] 1.25 mg NEB Q4HRRT #15 neb 03/18/19 [Rx] predniSONE [Prednisone] 60 mg PO DAILY #12 tablet 03/18/19 [Rx] Past Medical History - Past Health History Medical/Surgical History: Denies Medical/Surgical History HEENT History: Reports: Allergic Rhinitis, Impaired Vision, Sinusitis Respiratory History: Reports: Asthma Other Respiratory History: Diagnosed with influeza A on 11/04/18 Gastrointestinal History: Reports: GERD Genitourinary History: Reports: None 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 States she quit drinking about 1.5 years ago and has binge drank x1 since quitting. - Infectious Disease History Infectious Disease History: Reports: Chicken Pox, Influenza - Past Surgical History Head Surgeries/Procedures: Reports: None Female Surgical History: Reports: Dilitation & Evacuation Endocrine Surgical History: Reports: None Dermatological Surgical History: Reports: None Social & Family History - Family History Family Medical History: Noncontributory HEENT: Reports: None Cardiac: Reports: [place] (Early [place] in her father's in her 50s,) Respiratory: Reports: Asthma GI: Reports: None : Reports: None OBGYN: Reports: None Musculoskeletal: Reports: None Neurological: Reports: None Psychiatric: Reports: None Endocrine/Metabolic: Reports: Diabetes, type II Hematologic: Reports: None Immunologic: Reports: None Dermatologic: Reports: None Oncologic: Reports: None - Caffeine Use Caffeine Use: Reports: Coffee, Soda Other Caffeine Use: regular - Living Situation & Occupation Living situation: Reports: Occupation: Unemployed ED ROS GENERAL - Review of Systems Review Of Systems: See Below Constitutional: Reports: No Symptoms HEENT: Reports: No Symptoms Respiratory: Reports: Shortness of Breath, Wheezing Cardiovascular: Reports: No Symptoms Endocrine: Reports: No Symptoms GI/Abdominal: Reports: No Symptoms : Reports: No Symptoms Musculoskeletal: Reports: No Symptoms Skin: Reports: No Symptoms Neurological: Reports: No Symptoms Psychiatric: Reports: No Symptoms Hematologic/Lymphatic: Reports: No Symptoms Immunologic: Reports: No Symptoms ED EXAM, GENERAL - Physical Exam Exam: See Below Exam Limited By: No Limitations Eye Exam: Bilateral Eye: EOMI, PERRL Nose: Normal Inspection, Normal Mucosa, No Blood Throat/Mouth: Normal Inspection, Normal Lips, Normal Teeth, Normal Gums, Normal Oropharynx, Normal Voice, No Airway Compromise Head: Atraumatic, Normocephalic Neck: Normal Inspection, Supple, Non-Tender, Full Range of Motion Respiratory/Chest: Chest Non-Tender, Wheezing, Accessory Muscle Use. No: Lungs Clear, Normal Breath Sounds Cardiovascular: Normal Peripheral Pulses, Regular Rate, Rhythm, No Edema, No Gallop, No JVD, No Murmur, No Rub GI/Abdominal: Normal Bowel Sounds, Soft, Non-Tender, No Organomegaly, No Distention, No Abnormal Bruit, No Mass Back Exam: Normal Inspection, Full Range of Motion, NT Extremities: Normal Inspection, Normal Range of Motion, Non-Tender, Normal Capillary Refill, No Pedal Edema Neurological: Alert, Oriented, CN II-XII Intact, Normal Cognition, Normal Gait, Normal Reflexes, No Motor/Sensory Deficits Psychiatric: Normal Affect Skin Exam: Warm Course - Vital Signs Last Recorded V/S: Last Vital Signs Temp 35.9 C 03/18/19 12:26 Pulse 80 03/18/19 12:26 Resp 32 H 03/18/19 12:26 BP 118/75 03/18/19 12:26 Pulse Ox 98 03/18/19 12:42 - Orders/Labs/Meds Orders: Active Orders 24 hr Category Date Time Status RT Aerosol Therapy [RC] ASDIRECTED Care 03/18/19 12:31 Ordered RT Aerosol Therapy [RC] ASDIRECTED Care 03/18/19 12:53 Ordered Meds: Medications Discontinued Medications Generic Name Dose Route Start Last Admin Trade Name Freq PRN Reason Stop Dose Admin Albuterol/Ipratropium 3 ml 03/18/19 12:31 03/18/19 12:37 Duoneb 3.0-0.5 Mg/3 Ml NEB 03/18/19 12:32 3 ml ONETIME ONE Administration Albuterol/Ipratropium 3 ml 03/18/19 12:51 03/18/19 13:10 Duoneb 3.0-0.5 Mg/3 Ml NEB 03/18/19 12:52 3 ml ONETIME ONE Administration Methylprednisolone Sodium Succinate 125 mg 03/18/19 12:51 03/18/19 13:10 Solu-Medrol IM 03/18/19 12:52 125 mg ONETIME ONE Administration - Re-Assessments/Exams Free Text/Narrative Re-Assessment/Exam: 03/18/19 13:12 Pt reports feeling much better and shortness of breath has improved. Pt denies any chest tightness or cough. Pt states it feels like the mucous has broken up in her chest Departure - Departure Time of Disposition: 13:21 Disposition: Home, Self-Care 01 Condition: Good Clinical Impression: Asthma exacerbation Qualifiers: Asthma severity: mild Asthma persistence: persistent Qualified Code(s): J45.31 - Mild persistent asthma with (acute) exacerbation - Discharge Information Prescriptions: Albuterol [Proventil Neb Soln] 1.25 mg NEB Q4HRRT #15 neb predniSONE [Prednisone] 60 mg PO DAILY #12 tablet Instructions: Asthma, Adult, [id number] Referrals: Alanis Leblanc SCIENTIFIC DATABASE CURATOR [Primary Care Provider] - Forms: ED Department Discharge Additional Instructions: 1. discharge home 2. albuterol MDI Q4 and PRN 3. prednisone 60mg PO QD x 5 days 4. follow up with PCP for further evaluation and treatment 5. return to ER for worsening symptoms - My Orders Last 24 Hours: My Active Orders 03/18/19 12:31 RT Aerosol Therapy [RC] ASDIRECTED 03/18/19 12:53 RT Aerosol Therapy [RC] ASDIRECTED - Assessment/Plan Last 24 Hours: My Active Orders 03/18/19 12:31 RT Aerosol Therapy [RC] ASDIRECTED 03/18/19 12:53 RT Aerosol Therapy [RC] ASDIRECTED Assessment:: 1. asthma exacerbation Plan: 1. discharge home 2. albuterol MDI Q4 and PRN 3. prednisone 60mg PO QD x 5 days 4. follow up with PCP for further evaluation and treatment 5. return to ER for worsening symptoms
[2019-03-18] MEDS ORDERED: methylPREDNISolone Sodium Succinate 125 MG/2 ML SDV IM ONE (12:51)
[2019-03-18] MEDS ORDERED: predniSONE 20 MG Tab PO ONE (13:19)
[2019-03-18] MEDS ORDERED: Albuterol 0.083% 2.5 MG/3 ML Neb Soln NEB ONE (13:44)
[2019-03-18 13:56] VITALS: BP 122/75
== END 2019-03-18 14:10 | disposition home or self-care (01) ==
LOC: KA.ED 12:21
DX: J45.31 Mild persistent asthma with (acute) exacerbation (principal); K21.9 Gastro-esophageal reflux disease without esophagitis; Z79.899 Other long term (current) drug therapy
CPT/HCPCS: 94640; 96372; 99284; A9270; J2930; J7613-GY; J7620-GY

== ENCOUNTER 2019-04-26 05:07 | Emergency (ER) | payer MEDICAID ==
[2019-04-26 05:23] VITALS: BP 137/76; PULSE 67
[2019-04-26] MEDS ORDERED: Bacitracin/Neomycin/Polymyxin B Oint 0.9 GM U/D Packet TOP ONE (05:31)
--- NOTE | 2019-04-26 05:58 | EDM.PDOC ---
ED HPI GENERAL MEDICAL PROBLEM - General Chief Complaint: Behavioral/Psych Stated Complaint: suicide attempt Time Seen by Provider: 04/26/19 05:46 Source of Information: Reports: Patient, EMS, EMS Notes Reviewed, Police History Limitations: Reports: No Limitations - History of Present Illness INITIAL COMMENTS - FREE TEXT/NARRATIVE: Patient's a 38-year-old female who presents to the emergency department via EMS secondary to suicidal ideation and attempt. Patient does verbalize and states that she was drinking this evening at her sister's house and then went to a local bar. Upon going home this morning. Her and children gave her a hard time about her drinking. She decided that she cannot take it anymore and wanted to end it all. She took a kitchen knife and caused multiple wounds to bilateral wrists in front of her family. 911 was contacted along with police and patient was transported to the emergency department. Upon presentation, patient appears mildly intoxicated, and states that she does not want to live, and asked if we would please just let her . Patient is known to me, and I was able to converse with her and she agreed to have blood lab work performed. Patient admits to similar suicidal attempt approximately 20 years ago, but denies any such incident since. Patient states that she just drank alcohol, and did not have any kind of drugs or think that anyone may have spiked her drink at the local bar. Patient appears distraught. Onset: Today, Sudden Location: Reports: Upper Extremity, Left, Upper Extremity, Right Improves with: Reports: None Worsens with: Reports: None Associated Symptoms: Reports: No Other Symptoms - Related Data Allergies Allergy/AdvReac Type Severity Reaction Status Date / Time No Known Drug Allergies Allergy Cannot Verified 03/09/19 13:19 Remember Home Meds: Home Meds Montelukast Sodium [Singulair] 10 mg PO BEDTIME #30 tablet 05/12/16 [Rx] Ranitidine HCl [Zantac] 150 mg PO DAILY 07/11/16 [History] Fluticasone Propionate [Flonase Allergy Relief] 15.8 ml NS DAILY PRN 10/23/16 [ History] Albuterol Sulfate [Proventil Hfa] 6.7 gm IH QID PRN 11/04/18 [History] Acetaminophen [Acetaminophen Extra Strength] 1,000 mg PO Q6H PRN 11/08/18 [ History] Albuterol/Ipratropium [DuoNeb 3.0-0.5 MG/3 ML] 3 ml NEB Q6HR PRN #10 neb [Rx] Budesonide/Formoterol Fumarate [Symbicort 80-4.5 Mcg Inhaler] 2 puff INH BID [History] Ibuprofen 600 mg PO DAILY PRN 03/09/19 [History] Albuterol [Proventil Neb Soln] 1.25 mg NEB Q4HRRT #15 neb 03/18/19 [Rx] predniSONE [Prednisone] 60 mg PO DAILY #12 tablet 03/18/19 [Rx] Past Medical History - Past Health History Medical/Surgical History: Denies Medical/Surgical History HEENT History: Reports: Allergic Rhinitis, Impaired Vision, Sinusitis Respiratory History: Reports: Asthma Other Respiratory History: Diagnosed with influeza A on 11/04/18 Gastrointestinal History: Reports: GERD Genitourinary History: Reports: None 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 States she quit drinking about 1.5 years ago and has binge drank x1 since quitting. - Infectious Disease History Infectious Disease History: Reports: Chicken Pox, Influenza - Past Surgical History Head Surgeries/Procedures: Reports: None Female Surgical History: Reports: Dilitation & Evacuation Endocrine Surgical History: Reports: None Dermatological Surgical History: Reports: None Social & Family History - Family History Family Medical History: Noncontributory HEENT: Reports: None Cardiac: Reports: [place] (Early PA in her father's in her 50s,) Respiratory: Reports: Asthma GI: Reports: None : Reports: None OBGYN: Reports: None Musculoskeletal: Reports: None Neurological: Reports: None Psychiatric: Reports: None Endocrine/Metabolic: Reports: Diabetes, type II Hematologic: Reports: None Immunologic: Reports: None Dermatologic: Reports: None Oncologic: Reports: None - Tobacco Use Smoking Status *Q: Current Status Unknown - Caffeine Use Caffeine Use: Reports: Coffee, Soda Other Caffeine Use: regular - Living Situation & Occupation Living situation: Reports: Occupation: Unemployed ED ROS GENERAL - Review of Systems Review Of Systems: ROS reveals no pertinent complaints other than HPI. Constitutional: Reports: No Symptoms HEENT: Reports: No Symptoms Respiratory: Reports: No Symptoms Cardiovascular: Reports: No Symptoms Endocrine: Reports: No Symptoms GI/Abdominal: Reports: No Symptoms : Reports: No Symptoms Musculoskeletal: Reports: No Symptoms Skin: Reports: Wound (Multiple superficial abrasions to bilateral wrists with a small laceration to left wrist) Neurological: Reports: No Symptoms Psychiatric: Reports: Depression, Suicidal Ideation Hematologic/Lymphatic: Reports: No Symptoms Immunologic: Reports: No Symptoms ED EXAM, GENERAL - Physical Exam Exam: See Below Exam Limited By: Intoxication (Mild without slurring of words or aggressive behavior) General Appearance: Alert, WD/WN, Mild Distress Eye Exam: Bilateral Eye: Normal Inspection Nose: Normal Inspection, Normal Mucosa, No Blood Throat/Mouth: Normal Inspection, Normal Oropharynx, No Airway Compromise Head: Atraumatic, Normocephalic Neck: Normal Inspection, Supple, Non-Tender Respiratory/Chest: No Respiratory Distress, Wheezing (Diffuse End expiratory) Cardiovascular: Normal Peripheral Pulses, Regular Rate, Rhythm, No Murmur GI/Abdominal: Normal Bowel Sounds, Soft, Non-Tender Back Exam: Normal Inspection Extremities: Normal Inspection, Other (Bilateral forearm/wrist abrasions) Neurological: Alert, Oriented, Normal Cognition Psychiatric: Depressed Mood, Tearful Skin Exam: Warm, Dry, Normal Color, No Rash, Wound/Incision (Multiple linear abrasions on both forearms with a 1 cm laceration to left forearm. No vascular injury noted) Course - Vital Signs Last Recorded V/S: Last Vital Signs Temp 98 F 04/26/19 05:09 Pulse 67 04/26/19 05:09 Resp 16 04/26/19 05:09 BP 137/76 04/26/19 05:09 Pulse Ox 96 04/26/19 05:09 - Orders/Labs/Meds Orders: Active Orders 24 hr Category Date Time Status COMPREHENSIVE METABOLIC PN,CMP [CHEM] Stat Lab 04/26/19 05:40 Received ETHANOL BLOOD MEDICAL [CHEM] Stat Lab 04/26/19 05:40 Received LORazepam [Ativan] Med 04/26/19 08:05 Once 1 mg IM ONETIME ONE Medication Orders Lorazepam (Ativan) 1 mg IM ONETIME ONE Stop: 04/26/19 08:06 Labs: Laboratory Tests 04/26/19 04/26/19 04/26/19 Range/Units 05:40 06:07 07:30 WBC 10.23 H (5.00-10.00) 10^3/uL RBC 4.74 (3.80-5.50) 10^6/uL Hgb 14.3 (12.0-16.0) g/dL Hct 42.0 (37.0-47.0) % MCV 88.6 (82.0-92.0) fL MCH 30.2 (27.0-31.0) pg MCHC 34.0 (32.0-36.0) g/dL RDW 14.1 (11.5-14.5) % Plt Count 382 D (150-400) 10^3/uL MPV 9.2 (7.4-10.4) fL Immature Gran % (Auto) 0.3 (0.0-5.0) % Neut % (Auto) 57.1 (50.0-70.0) % Lymph % (Auto) 34.7 (20.0-40.0) % [place] % (Auto) 5.2 (2.0-8.0) % Eos % (Auto) 1.6 (1.0-3.0) % Baso % (Auto) 1.1 H (0.0-1.0) % Immature Gran # (Auto) 0.03 (0.00-0.50) 10^3/uL Neut # (Auto) 5.85 (2.50-7.00) 10^3/uL Lymph # (Auto) 3.55 (1.00-4.00) 10^3/uL [place] # (Auto) 0.53 (0.10-0.80) 10^3/uL Eos # (Auto) 0.16 (0.10-0.30) 10^3/uL Baso # (Auto) 0.11 H (0.00-0.10) 10^3/uL POC Sodium 146 (136-146) mmol/L POC Potassium 3.7 (3.5-4.9) mmol/L POC Chloride 110 H (98-109) mmol/L POC Total CO2 24 (24-29) mmol/L POC BUN 6 L (8-26) mg/dL POC Creatinine 1.20 (0.60-1.32) mg/dL POC Glucose 93 (74-106) mg/dl POC Ioniz Calcium David 1.10 L (1.12-1.32) mmol/L Urine Opiates Screen Negative (NEGATIVE) Ur Oxycodone Screen Negative (NEGATIVE) Urine Methadone Screen Negative (NEGATIVE) Ur Propoxyphene Screen Negative (NEGATIVE) Ur Barbiturates Screen Negative (NEGATIVE) Ur Tricyclics Screen Negative (NEGATIVE) Ur Phencyclidine Scrn Negative (NEGATIVE) Ur Amphetamine Screen Negative (NEGATIVE) U Methamphetamines Scrn Negative (NEGATIVE) U Benzodiazepines Scrn Negative (NEGATIVE) U Cocaine Metab Screen Negative (NEGATIVE) U Marijuana (THC) Screen Positive H (NEGATIVE) Meds: Medications Generic Name Dose Route Start Last Admin Trade Name Freq PRN Reason Stop Dose Admin Lorazepam 1 mg 04/26/19 08:05 Ativan IM 04/26/19 08:06 ONETIME ONE Discontinued Medications Generic Name Dose Route Start Last Admin Trade Name Freq PRN Reason Stop Dose Admin Neomycin/Polymyxin/Bacitracin 1 each 04/26/19 05:31 04/26/19 05:34 Triple Antibiotic Oint TOP 04/26/19 05:32 1 each ONETIME ONE Administration - Re-Assessments/Exams Free Text/Narrative Re-Assessment/Exam: 04/26/19 05:51 Patient presents with suicidal ideation and continues to threaten she does not want to live. Patient allowed nursing staff to obtain blood for lab work, but refused aerosolized nebulized treatment for asthma condition. 04/26/19 07:41 Discussed case with mental health counselor, Abbi at [facility]. She accepted patient for transfer. Patient will be transported via EMS ground ambulance. Departure - Departure Time of Disposition: 08:06 Disposition: DC/Tfer to Psych Hosp/Unit 65 Condition: Fair Clinical Impression: Self-harm, Depressive disorder, Suicidal ideation, Injury due to suicide attempt - Discharge Information Referrals: Linh Davidson MD [Primary Care Provider] - Forms: ED Department Discharge - My Orders Last 24 Hours: My Active Orders 04/26/19 05:40 COMPREHENSIVE METABOLIC PN,CMP [CHEM] Stat ETHANOL BLOOD MEDICAL [CHEM] Stat 04/26/19 08:05 LORazepam [Ativan] 1 mg IM ONETIME ONE - Assessment/Plan Last 24 Hours: My Active Orders 04/26/19 05:40 COMPREHENSIVE METABOLIC PN,CMP [CHEM] Stat ETHANOL BLOOD MEDICAL [CHEM] Stat 04/26/19 08:05 LORazepam [Ativan] 1 mg IM ONETIME ONE
[2019-04-26 06:46] LABS: BARBITURATE SCREEN,URINE NEGATIVE (NEGATIVE); BENZODIAZEPINES SCREEN,URINE NEGATIVE (NEGATIVE); TCA SCREEN,URINE NEGATIVE (NEGATIVE); THC SCREEN,URINE 50 NG/ML POSITIVE (NEGATIVE)
[2019-04-26 08:00] LABS: POTASSIUM,POC 3.7 mmol/L (3.5-4.9)
[2019-04-26] MEDS ORDERED: LORazepam 2 MG/ML SDV IM ONE (08:05)
== END 2019-04-26 08:10 ==
LOC: KA.ED 05:07
DX: S51.812A Laceration without foreign body of left forearm, initial encounter (principal); S50.811A Abrasion of right forearm, initial encounter; F32.9 Major depressive disorder, single episode, unspecified; J45.909 Unspecified asthma, uncomplicated; F41.9 Anxiety disorder, unspecified; K21.9 Gastro-esophageal reflux disease without esophagitis; Z79.899 Other long term (current) drug therapy; X78.9XXA Intentional self-harm by unspecified sharp object, initial encounter
CPT/HCPCS: 36415; 80047; 80076; 80305; 85025; 99285; G0480

== ENCOUNTER 2019-06-03 12:32 | Emergency (ER) | payer MEDICAID ==
[2019-06-03 12:44] VITALS: BP 92/56; PULSE 90
--- NOTE | 2019-06-03 12:48 | EDM.PDOC ---
ED HPI GENERAL MEDICAL PROBLEM - General Chief Complaint: Respiratory Problem Stated Complaint: SHORTNESS OF BREATH, HX ASTHMA Time Seen by Provider: 06/03/19 12:37 Source of Information: Reports: Patient History Limitations: Reports: No Limitations - History of Present Illness INITIAL COMMENTS - FREE TEXT/NARRATIVE: 38 YO WF presents to ER complaining of increased shortness of breath and asthma exacerbation which began to worsen yesterday. Pt reports she's been using her duoneb treatments every 6 hours and has noticed that she becomes more short of breath before her next treatment. Pt reports she hasn't been using her rescue inhaler because she thought that would be too much medication. Pt denies any fever/chills, no chest pain, no dizziness. Pt reports environmental allergies can sometimes make her asthma worse. Onset Date: 06/02/19 Duration: Day(s): (2) Severity: Mild Improves with: Reports: Medication Worsens with: Reports: Breathing Associated Symptoms: Reports: No Other Symptoms, Cough, Shortness of Breath. Denies: Chest Pain, cough w sputum, Fever/Chills, Nausea/Vomiting, Rash - Related Data Allergies Allergy/AdvReac Type Severity Reaction Status Date / Time No Known Drug Allergies Allergy Cannot Verified 06/03/19 12:44 Remember Home Meds: Home Meds Montelukast Sodium [Singulair] 10 mg PO BEDTIME #30 tablet 05/12/16 [Rx] Ranitidine HCl [Zantac] 150 mg PO DAILY 07/11/16 [History] Fluticasone Propionate [Flonase Allergy Relief] 15.8 ml NS DAILY PRN 10/23/16 [ History] Albuterol Sulfate [Proventil Hfa] 6.7 gm IH QID PRN 11/04/18 [History] Acetaminophen [Acetaminophen Extra Strength] 1,000 mg PO Q6H PRN 11/08/18 [ History] Albuterol/Ipratropium [DuoNeb 3.0-0.5 MG/3 ML] 3 ml NEB Q6HR PRN #10 neb [Rx] Budesonide/Formoterol Fumarate [Symbicort 80-4.5 Mcg Inhaler] 2 puff INH BID [History] Albuterol [Proventil Neb Soln] 1.25 mg NEB Q4HRRT #15 neb 03/18/19 [Rx] FLUoxetine HCl [Prozac] 20 mg PO BEDTIME 06/03/19 [History] predniSONE 20 mg PO WITHBREAKFAST #15 tab 06/03/19 [Rx] Past Medical History - Past Health History Medical/Surgical History: Denies Medical/Surgical History HEENT History: Reports: Allergic Rhinitis, Impaired Vision, Sinusitis Respiratory History: Reports: Asthma Other Respiratory History: Diagnosed with influeza A on 11/04/18 Gastrointestinal History: Reports: GERD Genitourinary History: Reports: None 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 States she quit drinking about 1.5 years ago and has binge drank x1 since quitting. - Infectious Disease History Infectious Disease History: Reports: Chicken Pox, Influenza - Past Surgical History Head Surgeries/Procedures: Reports: None Female Surgical History: Reports: Dilitation & Evacuation Endocrine Surgical History: Reports: None Dermatological Surgical History: Reports: None Social & Family History - Family History Family Medical History: Noncontributory HEENT: Reports: None Cardiac: Reports: [place] (Early [place] in her father's in her 50s,) Respiratory: Reports: Asthma GI: Reports: None : Reports: None OBGYN: Reports: None Musculoskeletal: Reports: None Neurological: Reports: None Psychiatric: Reports: None Endocrine/Metabolic: Reports: Diabetes, type II Hematologic: Reports: None Immunologic: Reports: None Dermatologic: Reports: None Oncologic: Reports: None - Caffeine Use Caffeine Use: Reports: Coffee, Soda Other Caffeine Use: regular - Living Situation & Occupation Living situation: Reports: Occupation: Unemployed ED ROS GENERAL - Review of Systems Review Of Systems: See Below Constitutional: Reports: No Symptoms HEENT: Reports: No Symptoms Respiratory: Reports: Shortness of Breath, Wheezing, Cough Cardiovascular: Reports: No Symptoms Endocrine: Reports: No Symptoms GI/Abdominal: Reports: No Symptoms : Reports: No Symptoms Musculoskeletal: Reports: No Symptoms Skin: Reports: No Symptoms Neurological: Reports: No Symptoms Psychiatric: Reports: No Symptoms Hematologic/Lymphatic: Reports: No Symptoms Immunologic: Reports: No Symptoms ED EXAM, GENERAL - Physical Exam Exam: See Below Exam Limited By: No Limitations General Appearance: Alert, WD/WN, No Apparent Distress Nose: Normal Inspection, Normal Mucosa, No Blood Throat/Mouth: Normal Inspection, Normal Lips, Normal Teeth, Normal Gums, Normal Oropharynx, Normal Voice, No Airway Compromise Head: Atraumatic, Normocephalic Neck: Normal Inspection, Supple, Non-Tender, Full Range of Motion Respiratory/Chest: No Respiratory Distress, No Accessory Muscle Use, Chest Non- Tender, Wheezing. No: Stridor, Accessory Muscle Use, Retractions Cardiovascular: Normal Peripheral Pulses, Regular Rate, Rhythm, No Edema, No Gallop, No JVD, No Murmur, No Rub GI/Abdominal: Normal Bowel Sounds, Soft, Non-Tender, No Organomegaly, No Distention, No Abnormal Bruit, No Mass Back Exam: Normal Inspection, Full Range of Motion, NT Extremities: Normal Inspection, Normal Range of Motion, Non-Tender, Normal Capillary Refill, No Pedal Edema Neurological: Alert, Oriented, CN II-XII Intact, Normal Cognition, Normal Gait, Normal Reflexes, No Motor/Sensory Deficits Psychiatric: Normal Affect, Normal Mood Skin Exam: Warm, Dry, Intact, Normal Color, No Rash Lymphatic: No Adenopathy Course - Radiology Interpretation Free Text/Narrative:: Pt reports improved shortness of breath after duoneb treatment. Departure - Departure Time of Disposition: 13:11 Disposition: Home, Self-Care 01 Condition: Good Clinical Impression: Asthma exacerbation Qualifiers: Asthma severity: mild Asthma persistence: persistent Qualified Code(s): J45.31 - Mild persistent asthma with (acute) exacerbation - Discharge Information Prescriptions: predniSONE 20 mg PO WITHBREAKFAST #15 tab Instructions: Asthma, Adult Referrals: Alansi Leblanc RO[employer] CONTRACTOR [Primary Care Provider] - Forms: ED Department Discharge Additional Instructions: 1. discharge home 2. continue duonebs Q6 and add albuterol HFA Q4 and PRN 3. prednisone 60mg PO QD x 5 days 4. continue current medications as directed 5. follow up with PCP for further evaluation and treatment 6. return to ER for worsening symptoms - Assessment/Plan Assessment:: 1. Asthma exacerbation Plan: 1. discharge home 2. continue duonebs Q6 and add albuterol HFA Q4 and PRN 3. prednisone 60mg PO QD x 5 days 4. continue current medications as directed 5. follow up with PCP for further evaluation and treatment 6. return to ER for worsening symptoms
[2019-06-03] MEDS ORDERED: Albuterol/Ipratropium 3.0-0.5 MG/3 ML Neb Soln NEB ONE ×2 (12:50→13:11)
[2019-06-03] MEDS ORDERED: methylPREDNISolone Sodium Succinate 125 MG/2 ML SDV IM ONE (12:50)
== END 2019-06-03 13:30 | disposition home or self-care (01) ==
LOC: KA.ED 12:32
DX: J45.31 Mild persistent asthma with (acute) exacerbation (principal)
CPT/HCPCS: 96372; 99284; J2930; J7620-GY

== ENCOUNTER 2019-07-13 19:00 | Emergency (ER) | payer SELFPAY ==
[2019-07-13] MEDS ORDERED: Sodium Chloride 0.9% 10 ML Syringe FLUSH PRN (19:21)
--- NOTE | 2019-07-13 19:34 | EDM.PDOC ---
ED HPI GENERAL MEDICAL PROBLEM - General Chief Complaint: Respiratory Problem Stated Complaint: ASTHMA Time Seen by Provider: 07/13/19 19:24 Source of Information: Reports: Patient History Limitations: Reports: No Limitations - History of Present Illness INITIAL COMMENTS - FREE TEXT/NARRATIVE: Episode began Tuesday with stability with an increase in the frequency of nebulizers. Has no improvement or stabilization today in comparison to Tuesday and . There is no labored breathing but notes wheezes both inspiratory and expiratory that have not/improved today. Speaks of difficulty at work, when finishing her shift noted more wheezes and presented here for evaluation and treatment. Denies fever or chills or positive exposures other than to the general public she works. No recent travel. Was using steroid taper with an initial dose of 40 mg 2+ weeks ago with significant improvement with that. Onset: Gradual Duration: Day(s): Location: Reports: Chest Quality: Reports: Same as Previous Episode Severity: Moderate Improves with: Reports: Medication (But does not maintain any length of time.) Context: Reports: Other Associated Symptoms: Reports: No Other Symptoms - Related Data Allergies Allergy/AdvReac Type Severity Reaction Status Date / Time No Known Drug Allergies Allergy Cannot Verified 07/13/19 21:05 Remember Home Meds: Home Meds Montelukast Sodium [Singulair] 10 mg PO BEDTIME #30 tablet 05/12/16 [Rx] Ranitidine HCl [Zantac] 150 mg PO BID 07/11/16 [History] Fluticasone Propionate [Flonase Allergy Relief] 2 spray NASBOTH DAILY 10/23/16 [ History] Albuterol Sulfate [Proventil Hfa] 6.7 gm IH QID PRN 11/04/18 [History] Acetaminophen [Acetaminophen Extra Strength] 1,000 mg PO Q6H PRN 11/08/18 [ History] Albuterol/Ipratropium [DuoNeb 3.0-0.5 MG/3 ML] 3 ml NEB Q6HR PRN #10 neb [Rx] Budesonide/Formoterol Fumarate [Symbicort 80-4.5 Mcg Inhaler] 2 puff INH BID [History] Albuterol [Proventil Neb Soln] 1.25 mg NEB Q4HRRT #15 neb 03/18/19 [Rx] FLUoxetine HCl [Prozac] 40 mg PO BEDTIME 06/03/19 [History] Doxycycline [Vibramycin] 100 mg PO DAILY 10 Days #20 cap 07/13/19 [Rx] predniSONE 20 mg PO WITHBREAKFAST #20 tab 07/13/19 [Rx] Past Medical History - Past Health History Medical/Surgical History: Denies Medical/Surgical History (Denies any changes in history) HEENT History: Reports: Allergic Rhinitis, Impaired Vision, Sinusitis Cardiovascular History: Reports: None Respiratory History: Reports: Asthma Other Respiratory History: Diagnosed with influeza A on 11/04/18 Gastrointestinal History: Reports: GERD Genitourinary History: Reports: None 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 States she quit drinking about 1.5 years ago and has binge drank x1 since quitting. - Infectious Disease History Infectious Disease History: Reports: Chicken Pox, Influenza - Past Surgical History Head Surgeries/Procedures: Reports: None Female Surgical History: Reports: Dilitation & Evacuation Endocrine Surgical History: Reports: None Dermatological Surgical History: Reports: None Social & Family History - Family History Family Medical History: Noncontributory HEENT: Reports: None Cardiac: Reports: [place] (Early [place] in her father's in her 50s,) Respiratory: Reports: Asthma GI: Reports: None : Reports: None OBGYN: Reports: None Musculoskeletal: Reports: None Neurological: Reports: None Psychiatric: Reports: None Endocrine/Metabolic: Reports: Diabetes, type II Hematologic: Reports: None Immunologic: Reports: None Dermatologic: Reports: None Oncologic: Reports: None - Tobacco Use Smoking Status *Q: Current Some Day Smoker (Stress smoker) Used Tobacco, but Quit: No Smoking Cessation Information Provided To Patient: Patient Refused Second Hand Smoke Exposure: No - Caffeine Use Caffeine Use: Reports: Coffee, Soda Other Caffeine Use: regular - Living Situation & Occupation Living situation: Reports: Occupation: Unemployed ED ROS GENERAL - Review of Systems Review Of Systems: See Below Constitutional: Denies: Fever, Chills, Malaise HEENT: Reports: Other (Mild sinus drainage starting today) Respiratory: Reports: Wheezing. Denies: Sputum Cardiovascular: Reports: No Symptoms. Denies: Chest Pain Endocrine: Reports: No Symptoms GI/Abdominal: Reports: No Symptoms : Reports: No Symptoms Musculoskeletal: Reports: No Symptoms Skin: Reports: No Symptoms Neurological: Reports: No Symptoms Psychiatric: Reports: No Symptoms Hematologic/Lymphatic: Reports: No Symptoms Immunologic: Reports: No Symptoms ED EXAM, GENERAL - Physical Exam Exam: See Below Exam Limited By: No Limitations General Appearance: Alert, WD/WN, No Apparent Distress Ears: Normal External Exam, Normal Canal, Hearing Grossly Normal, Normal TMs Nose: Normal Inspection, Normal Mucosa, No Blood Throat/Mouth: Normal Inspection, Inflammation. No: Normal Oropharynx ( Posterior drainage) Head: Atraumatic, Normocephalic Neck: Normal Inspection, Supple, Non-Tender, Full Range of Motion Respiratory/Chest: No Respiratory Distress, Wheezing, Prolonged Expiration. No : Accessory Muscle Use, Retractions Cardiovascular: Normal Peripheral Pulses, Regular Rate, Rhythm GI/Abdominal: Normal Bowel Sounds, Soft, Non-Tender, No Organomegaly, No Distention, No Abnormal Bruit, No Mass (Female) Exam: Deferred Rectal (Female) Exam: Deferred Back Exam: Normal Inspection Extremities: Normal Inspection, Normal Range of Motion, Non-Tender, Normal Capillary Refill, No Pedal Edema Neurological: Alert, Oriented, CN II-XII Intact, Normal Cognition, Normal Gait, Normal Reflexes, No Motor/Sensory Deficits Psychiatric: Normal Affect, Normal Mood Skin Exam: Warm, Dry, Intact, Normal Color, No Rash Lymphatic: No Adenopathy Course - Vital Signs Last Recorded V/S: Last Vital Signs Temp Pulse Resp 22 H 07/13/19 21:13 BP Pulse Ox 94 L 07/13/19 21:13 - Orders/Labs/Meds Orders: Active Orders 24 hr Category Date Time Status Peripheral IV Care [RC] . DIRECTED Care 07/13/19 19:21 Active RT Aerosol Therapy [RC] ASDIRECTED Care 07/13/19 21:18 Active CULTURE BLOOD [BC] Stat Lab 07/13/19 20:40 Received Sodium Chloride 0.9% [Saline Flush] Med 07/13/19 19:21 Active 10 ml FLUSH Q8HR PRN Peripheral IV Insertion Adult [OM.PC] Routine Oth 07/13/19 19:21 Ordered Medication Orders Sodium Chloride (Saline Flush) 10 ml FLUSH Q8HR PRN PRN Reason: keep vein open Labs: Laboratory Tests 07/13/19 07/13/19 07/13/19 Range/Units 19:25 19:25 20:40 WBC 14.25 H (5.00-10.00) 10^3/uL RBC 4.60 (3.80-5.50) 10^6/uL Hgb 14.4 (12.0-16.0) g/dL Hct 41.3 (37.0-47.0) % MCV 89.8 (82.0-92.0) fL MCH 31.3 H (27.0-31.0) pg MCHC 34.9 (32.0-36.0) g/dL RDW 13.8 (11.5-14.5) % Plt Count 354 (150-400) 10^3/uL MPV 9.8 (7.4-10.4) fL Immature Gran % (Auto) 0.2 (0.0-5.0) % Neut % (Auto) 68.5 (50.0-70.0) % Lymph % (Auto) 21.1 (20.0-40.0) % [place] % (Auto) 5.0 (2.0-8.0) % Eos % (Auto) 4.2 H (1.0-3.0) % Baso % (Auto) 1.0 (0.0-1.0) % Immature Gran # (Auto) 0.03 (0.00-0.50) 10^3/uL Neut # (Auto) 9.76 H (2.50-7.00) 10^3/uL Lymph # (Auto) 3.01 (1.00-4.00) 10^3/uL [place] # (Auto) 0.71 (0.10-0.80) 10^3/uL Eos # (Auto) 0.60 H (0.10-0.30) 10^3/uL Baso # (Auto) 0.14 H (0.00-0.10) 10^3/uL Sodium 142 (136-145) mmol/L Potassium 3.8 (3.3-5.3) mmol/L Chloride 106 (98-115) mmol/L Carbon Dioxide 21.8 (21.0-32.0) mmol/L Anion Gap 18.0 H (5-15) mmol/L BUN 8 (6-25) mg/dL Creatinine 0.73 (0.51-1.17) mg/dL Est Cr Clr Drug Dosing TNP Estimated GFR (MDRD) > 60 mL/min Glucose 91 (75 - 99) mg/dL Lactic Acid 0.4 (0.4-2.0) mmol/L Calcium 9.0 (8.7-10.3) mg/dL Total Bilirubin 0.3 (0.2-1.0) mg/dL AST 30 (15-37) U/L ALT 37 (12-78) U/L Alkaline Phosphatase 77 (46-116) IU/L Total Protein 7.4 (6.4-8.2) g/dL Albumin 3.40 (3.00-4.80) g/dL Meds: Medications Generic Name Dose Route Start Last Admin Trade Name Freq PRN Reason Stop Dose Admin Sodium Chloride 10 ml 07/13/19 19:21 Saline Flush FLUSH Q8HR PRN keep vein open Discontinued Medications Generic Name Dose Route Start Last Admin Trade Name Freq PRN Reason Stop Dose Admin Albuterol/Ipratropium 3 ml 07/13/19 21:18 07/13/19 21:22 Duoneb 3.0-0.5 Mg/3 Ml NEB 07/13/19 21:19 3 ml ONETIME ONE Administration Doxycycline Hyclate 100 mg 07/13/19 21:21 07/13/19 21:28 Vibramycin PO 07/13/19 21:22 100 mg ONETIME ONE Administration Methylprednisolone Sodium Succinate 125 mg 07/13/19 19:42 07/13/19 19:46 Solu-Medrol IVPUSH 07/13/19 19:43 125 mg ONETIME ONE Administration Methylprednisolone Sodium Succinate Confirm 07/13/19 19:44 07/13/19 19:50 Solu-Medrol Administered 07/13/19 19:45 Not Given Dose 125 mg .ROUTE .STK-MED ONE Departure - Departure Time of Disposition: 21:27 Disposition: Home, Self-Care 01 Condition: Fair Clinical Impression: Leukocytosis Asthma exacerbation Qualifiers: Asthma severity: mild Asthma persistence: persistent Qualified Code(s): J45.31 - Mild persistent asthma with (acute) exacerbation Sinusitis Qualifiers: Sinusitis location: frontal Chronicity: subacute Qualified Code(s): J01.10 - Acute frontal sinusitis, unspecified Acute bronchitis Qualifiers: Bronchitis organism: unspecified organism Qualified Code(s): J20.9 - Acute bronchitis, unspecified - Discharge Information *PRESCRIPTION DRUG MONITORING PROGRAM REVIEWED*: Not Applicable *COPY OF PRESCRIPTION DRUG MONITORING REPORT IN PATIENT NED: Not Applicable Prescriptions: Doxycycline [Vibramycin] 100 mg PO DAILY 10 Days #20 cap predniSONE 20 mg PO WITHBREAKFAST #20 tab Instructions: Asthma, Adult Referrals: Alanis Leblanc, F[employer]IT[employer]PH[employer] APPRENTICE [Primary Care Provider] - Forms: ED Department Discharge Care Plan Goals: Prednisone taper at pharmacy take 80mg , 60mg , 40mg , 20mg daily until clinic recheck and further taper instructions Doxycycline 100mg by mouth twice daily for 10 days. Continue your nebulizers as directed and rescue inhaler if/when needed. If you continue to increase amount of use, you need to be seen again in the next 48 hours. Clinic recheck this upcoming week as able to schedule to discuss prednisone taper and change/adjustment in bronchial medications. - Problem List & Annotations (1) Sinusitis SNOMED Code(s): 39205984 Code(s): J32.9 - CHRONIC SINUSITIS, UNSPECIFIED Status: Acute Priority: Medium Current Visit: Yes Qualifiers: Sinusitis location: frontal Chronicity: subacute Qualified Code(s): J01.10 - Acute frontal sinusitis, unspecified (2) Leukocytosis SNOMED Code(s): 495127700, 647742470 Code(s): D72.829 - ELEVATED WHITE BLOOD CELL COUNT, UNSPECIFIED Status: Acute Priority: High Current Visit: Yes Onset Date: ~07/13/19 (3) Asthma exacerbation SNOMED Code(s): 092167618 Code(s): J45.901 - UNSPECIFIED ASTHMA WITH (ACUTE) EXACERBATION Status: Chronic Priority: High Current Visit: Yes Qualifiers: Asthma severity: mild Asthma persistence: persistent Qualified Code(s): J45.31 - Mild persistent asthma with (acute) exacerbation (4) Acute bronchitis SNOMED Code(s): 27468856 Code(s): J20.9 - ACUTE BRONCHITIS, UNSPECIFIED Status: Acute Current Visit: Yes Qualifiers: Bronchitis organism: unspecified organism Qualified Code(s): J20.9 - Acute bronchitis, unspecified - Problem List Review Problem List Initiated/Reviewed/Updated: Yes - My Orders Last 24 Hours: My Active Orders 07/13/19 19:21 Peripheral IV Care [RC] . DIRECTED Sodium Chloride 0.9% [Saline Flush] 10 ml FLUSH Q8HR PRN Peripheral IV Insertion Adult [OM.PC] Routine 07/13/19 20:40 CULTURE BLOOD [BC] Stat 07/13/19 21:18 RT Aerosol Therapy [RC] ASDIRECTED - Assessment/Plan Last 24 Hours: My Active Orders 07/13/19 19:21 Peripheral IV Care [RC] . DIRECTED Sodium Chloride 0.9% [Saline Flush] 10 ml FLUSH Q8HR PRN Peripheral IV Insertion Adult [OM.PC] Routine 07/13/19 20:40 CULTURE BLOOD [BC] Stat 07/13/19 21:18 RT Aerosol Therapy [RC] ASDIRECTED Plan: Prednisone taper at pharmacy take 80mg , 60mg , 40mg , 20mg daily until clinic recheck and further taper instructions Doxycycline 100mg by mouth twice daily for 10 days. Continue your nebulizers as directed and rescue inhaler if/when needed. If you continue to increase amount of use, you need to be seen again in the next 48 hours. Clinic recheck this upcoming week as able to schedule to discuss prednisone taper and change/adjustment in bronchial medications.
[2019-07-13] MEDS ORDERED: methylPREDNISolone Sodium Succinate 125 MG/2 ML SDV IVPUSH ONE (19:42)
[2019-07-13] MEDS ORDERED: methylPREDNISolone Sodium Succinate 125 MG/2 ML SDV ONE (19:44)
--- NOTE | 2019-07-13 19:52 | CR ---
[id number] RAD/RAD Chest PA And Lateral EXAM: RAD Chest PA And Lateral INDICATION: WHEEZING COMPARISON: March 09, 2019. DISCUSSION: Cardiomediastinal silhouette is normal in size and contour. No infiltrate, effusion, pneumothorax, or edema. IMPRESSION: No acute cardiopulmonary abnormality. Julius Perez DO 07/13/19 1951 Thank you for allowing us to participate in the care of your patient.
[2019-07-13 20:13] LABS: CHLORIDE,CL 106 mmol/L (98-115); SODIUM,NA 142 mmol/L (136-145)
[2019-07-13] MEDS ORDERED: Albuterol/Ipratropium 3.0-0.5 MG/3 ML Neb Soln NEB ONE (21:18)
[2019-07-14 01:44] VITALS: PULSE 88
[2019-07-14 02:17] VITALS: BP 125/75
== END 2019-07-13 21:35 | disposition home or self-care (01) ==
LOC: KA.ED 19:00
DX: J45.31 Mild persistent asthma with (acute) exacerbation (principal); J01.10 Acute frontal sinusitis, unspecified; J20.9 Acute bronchitis, unspecified; D72.829 Elevated white blood cell count, unspecified; K21.9 Gastro-esophageal reflux disease without esophagitis; F41.9 Anxiety disorder, unspecified; F32.9 Major depressive disorder, single episode, unspecified; F17.200 Nicotine dependence, unspecified, uncomplicated; Z79.899 Other long term (current) drug therapy
CPT/HCPCS: 36415; 71046; 80053; 83605; 85025; 87040; 94640; 96374; 99284; 99285-25; A9270-GY; J2930; J7620-GY

== ENCOUNTER 2019-08-10 22:42 | Emergency (ER) | payer SELFPAY ==
[2019-08-10] MEDS ORDERED: Albuterol/Ipratropium 3.0-0.5 MG/3 ML Neb Soln NEB ONE ×2 (22:46→23:35)
[2019-08-10] MEDS ORDERED: Budesonide/Formoterol 80-4.5 MCG/Puff 10.2 GM Inhaler INH ONE (22:52)
[2019-08-10 23:14] VITALS: BP 127/87
--- NOTE | 2019-08-10 23:14 | EDM.PDOC ---
ED HPI GENERAL MEDICAL PROBLEM - General Chief Complaint: Respiratory Problem Stated Complaint: ASTHMA Time Seen by Provider: 08/10/19 22:45 Source of Information: Reports: Patient History Limitations: Reports: No Limitations - History of Present Illness INITIAL COMMENTS - FREE TEXT/NARRATIVE: 38 YO chronic asthmatic presents to ER with mild shortness of breath which began earlier tonight. Pt reports last albuterol treatment was 7 hours ago. Pt denies fever/chills, no chest pain, no productive cough. Pt states she ran out of her steroidal inhaler and is waiting for her insurance to authorize anther prescription. Onset: Today Duration: Chronic, Recurring Location: Reports: Chest Severity: Mild Improves with: Reports: Medication Worsens with: Reports: Breathing Associated Symptoms: Reports: Cough, Shortness of Breath. Denies: cough w sputum, Diaphoresis, Fever/Chills, Nausea/Vomiting, Rash, Weakness - Related Data Allergies Allergy/AdvReac Type Severity Reaction Status Date / Time No Known Drug Allergies Allergy Cannot Verified 07/13/19 21:05 Remember Home Meds: Home Meds Montelukast Sodium [Singulair] 10 mg PO BEDTIME #30 tablet 05/12/16 [Rx] Ranitidine HCl [Zantac] 150 mg PO BID 07/11/16 [History] Fluticasone Propionate [Flonase Allergy Relief] 2 spray NASBOTH DAILY 10/23/16 [ History] Albuterol Sulfate [Proventil Hfa] 6.7 gm IH QID PRN 11/04/18 [History] Acetaminophen [Acetaminophen Extra Strength] 1,000 mg PO Q6H PRN 11/08/18 [ History] Albuterol/Ipratropium [DuoNeb 3.0-0.5 MG/3 ML] 3 ml NEB Q6HR PRN #10 neb [Rx] Budesonide/Formoterol Fumarate [Symbicort 80-4.5 Mcg Inhaler] 2 puff INH BID [History] Albuterol [Proventil Neb Soln] 1.25 mg NEB Q4HRRT #15 neb 03/18/19 [Rx] FLUoxetine HCl [Prozac] 40 mg PO BEDTIME 06/03/19 [History] Doxycycline [Vibramycin] 100 mg PO DAILY 10 Days #20 cap 07/13/19 [Rx] predniSONE 20 mg PO WITHBREAKFAST #20 tab 07/13/19 [Rx] Past Medical History - Past Health History Medical/Surgical History: Denies Medical/Surgical History (Denies any changes in history) HEENT History: Reports: Allergic Rhinitis, Impaired Vision, Sinusitis Cardiovascular History: Reports: None Respiratory History: Reports: Asthma Other Respiratory History: Diagnosed with influeza A on 11/04/18 Gastrointestinal History: Reports: GERD Genitourinary History: Reports: None 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 States she quit drinking about 1.5 years ago and has binge drank x1 since quitting. - Infectious Disease History Infectious Disease History: Reports: Chicken Pox, Influenza - Past Surgical History Head Surgeries/Procedures: Reports: None Female Surgical History: Reports: Dilitation & Evacuation Endocrine Surgical History: Reports: None Dermatological Surgical History: Reports: None Social & Family History - Family History Family Medical History: Noncontributory HEENT: Reports: None Cardiac: Reports: NM Respiratory: Reports: Asthma GI: Reports: None : Reports: None OBGYN: Reports: None Musculoskeletal: Reports: None Neurological: Reports: None Psychiatric: Reports: None Endocrine/Metabolic: Reports: Diabetes, type II Hematologic: Reports: None Immunologic: Reports: None Dermatologic: Reports: None Oncologic: Reports: None - Caffeine Use Caffeine Use: Reports: Coffee, Soda Other Caffeine Use: regular - Living Situation & Occupation Living situation: Reports: Occupation: Unemployed ED ROS GENERAL - Review of Systems Review Of Systems: See Below Constitutional: Reports: No Symptoms HEENT: Reports: No Symptoms Respiratory: Reports: Shortness of Breath, Wheezing Cardiovascular: Reports: No Symptoms Endocrine: Reports: No Symptoms GI/Abdominal: Reports: No Symptoms : Reports: No Symptoms Musculoskeletal: Reports: No Symptoms Skin: Reports: No Symptoms Neurological: Reports: No Symptoms Psychiatric: Reports: No Symptoms Hematologic/Lymphatic: Reports: No Symptoms Immunologic: Reports: No Symptoms ED EXAM, GENERAL - Physical Exam Exam: See Below Exam Limited By: No Limitations General Appearance: Alert, WD/WN, No Apparent Distress Head: Atraumatic, Normocephalic Neck: Normal Inspection, Supple, Non-Tender, Full Range of Motion Respiratory/Chest: No Respiratory Distress, No Accessory Muscle Use, Chest Non- Tender, Wheezing, Prolonged Expiration Cardiovascular: Normal Peripheral Pulses, Regular Rate, Rhythm, No Edema, No Gallop, No JVD, No Murmur, No Rub GI/Abdominal: Normal Bowel Sounds, Soft, Non-Tender, No Organomegaly, No Distention, No Abnormal Bruit, No Mass Back Exam: Normal Inspection, Full Range of Motion, NT Extremities: Normal Inspection, Normal Range of Motion, Non-Tender, Normal Capillary Refill, No Pedal Edema Neurological: Alert, Oriented, CN II-XII Intact, Normal Cognition, Normal Gait, Normal Reflexes, No Motor/Sensory Deficits Psychiatric: Normal Affect, Normal Mood Skin Exam: Warm, Dry, Intact, Normal Color, No Rash Lymphatic: No Adenopathy Course - Vital Signs Last Recorded V/S: Last Vital Signs Temp 36.0 C 08/10/19 22:42 Pulse 113 H 08/10/19 22:42 Resp 24 H 08/10/19 22:42 BP 127/87 08/10/19 22:42 Pulse Ox 93 L 08/10/19 22:42 - Orders/Labs/Meds Orders: Active Orders 24 hr Category Date Time Status RT Aerosol Therapy [RC] ASDIRECTED Care 08/10/19 22:47 Active Meds: Medications Discontinued Medications Generic Name Dose Route Start Last Admin Trade Name Vannessa PRN Reason Stop Dose Admin Albuterol/Ipratropium 3 ml 08/10/19 22:46 08/10/19 23:01 Duoneb 3.0-0.5 Mg/3 Ml NEB 08/10/19 22:47 3 ml ONETIME ONE Administration Budesonide/Formoterol Fumarate 0 gm 08/10/19 22:52 Symbicort 80-4.5 Mcg INH 08/10/19 22:53 ONETIME ONE Tiotropium [place] Confirm 08/10/19 23:24 Spiriva Handihaler Administered 08/10/19 23:25 Dose 18 mcg .ROUTE .STK-MED ONE Departure - Departure Time of Disposition: 23:30 Disposition: Home, Self-Care 01 Condition: Good Clinical Impression: Asthma exacerbation Qualifiers: Asthma severity: mild Asthma persistence: persistent Qualified Code(s): J45.31 - Mild persistent asthma with (acute) exacerbation - Discharge Information Instructions: Asthma, Adult Referrals: Erlandson,Alanis E, LAMINATION MACHINE OPERATOR [Primary Care Provider] - Forms: ED Department Discharge Additional Instructions: 1. discharge home 2. continue albuterol/Atrovent treatment Q4 hour and as needed 3. Symbicort as directed 4. follow up with PCP for further evaluation and treatment 5. return to ER for worsening symptoms - My Orders Last 24 Hours: My Active Orders 08/10/19 22:47 RT Aerosol Therapy [RC] ASDIRECTED - Assessment/Plan Last 24 Hours: My Active Orders 08/10/19 22:47 RT Aerosol Therapy [RC] ASDIRECTED Assessment:: 1. asthma exacerbation Plan: 1. discharge home 2. continue albuterol/Atrovent treatment Q4 hour and as needed 3. Symbicort as directed 4. follow up with PCP for further evaluation and treatment 5. return to ER for worsening symptoms
[2019-08-10] MEDS ORDERED: Tiotropium Inhaler 18 MCG Inhalation Powder Cap Kit of 5 ONE (23:24)
[2019-08-10] MEDS ORDERED: Albuterol 0.083% 2.5 MG/3 ML Neb Soln NEB ONE (23:53)
[2019-08-11 02:46] VITALS: PULSE 96
== END 2019-08-11 00:21 | disposition home or self-care (01) ==
LOC: KA.ED 22:42
DX: J45.31 Mild persistent asthma with (acute) exacerbation (principal); Z79.51 Long term (current) use of inhaled steroids; Z79.899 Other long term (current) drug therapy
CPT/HCPCS: 94640; 99283; A9270; J7613-GY; J7620-GY

== ENCOUNTER 2020-01-06 15:43 | Emergency (ER) | payer MEDICAID, OTHER ==
[2020-01-06] MEDS: Albuterol/Ipratropium 3.0-0.5 MG/3 ML Neb Soln NEB ONE ×2 (16:05→17:28)
[2020-01-06 16:13] VITALS: BP 127/79
[2020-01-06] MEDS: methylPREDNISolone Sodium Succinate 125 MG/2 ML SDV IM ONE (16:20)
--- NOTE | 2020-01-06 16:29 | EDM.PDOC ---
ED HPI GENERAL MEDICAL PROBLEM - General Chief Complaint: General Stated Complaint: ASTHMA ATTACK Time Seen by Provider: 01/06/20 16:07 Source of Information: Reports: Patient History Limitations: Reports: No Limitations - History of Present Illness INITIAL COMMENTS - FREE TEXT/NARRATIVE: Patient presents with dyspnea and cough. She has asthma and uses Symbicort daily with albuterol inhaler and nebs as needed. For the past week she has needed the rescue meds 1-2 times a day which is not the norm. She has had a bad cough for a week. No fever, sore throat or vomiting. Throat is "scratchy". - Related Data Allergies Allergy/AdvReac Type Severity Reaction Status Date / Time No Known Drug Allergies Allergy Cannot Verified 01/06/20 16:14 Remember Home Meds: Home Meds Montelukast Sodium [Singulair] 10 mg PO BEDTIME #30 tablet 05/12/16 [Rx] Fluticasone Propionate [Flonase Allergy Relief] 2 spray NASBOTH DAILY 10/23/16 [ History] Albuterol Sulfate [Proventil Hfa] 6.7 gm IH QID PRN 11/04/18 [History] Acetaminophen [Acetaminophen Extra Strength] 1,000 mg PO Q6H PRN 11/08/18 [ History] Albuterol/Ipratropium [DuoNeb 3.0-0.5 MG/3 ML] 3 ml NEB Q6HR PRN #10 neb [Rx] Budesonide/Formoterol Fumarate [Symbicort 80-4.5 Mcg Inhaler] 2 puff INH BID [History] FLUoxetine HCl [Prozac] 40 mg PO BEDTIME 06/03/19 [History] Albuterol [Proventil Neb Soln] 0.63 mg NEB Q4HRRT PRN 01/06/20 [History] Past Medical History - Past Health History Medical/Surgical History: Denies Medical/Surgical History (Denies any changes in history) HEENT History: Reports: Allergic Rhinitis, Impaired Vision, Sinusitis Other HEENT History: wears glasses Cardiovascular History: Reports: None Respiratory History: Reports: Asthma Other Respiratory History: Diagnosed with influeza A on 11/04/18 Gastrointestinal History: Reports: GERD Other Gastrointestinal History: 2018 - slight hiatal hernia Genitourinary History: Reports: None 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 States she quit drinking about 1.5 years ago and has binge drank x1 since quitting. - Infectious Disease History Infectious Disease History: Reports: Chicken Pox, Influenza - Past Surgical History Head Surgeries/Procedures: Reports: None Female Surgical History: Reports: Dilitation & Evacuation Endocrine Surgical History: Reports: None Dermatological Surgical History: Reports: None Social & Family History - Family History Family Medical History: Noncontributory HEENT: Reports: None Cardiac: Reports: [place] Respiratory: Reports: Asthma GI: Reports: None : Reports: None OBGYN: Reports: None Musculoskeletal: Reports: None Neurological: Reports: None Psychiatric: Reports: None Endocrine/Metabolic: Reports: Diabetes, type II Hematologic: Reports: None Immunologic: Reports: None Dermatologic: Reports: None Oncologic: Reports: None - Caffeine Use Caffeine Use: Reports: Coffee, Soda Other Caffeine Use: regular - Living Situation & Occupation Living situation: Reports: Occupation: Unemployed ED ROS GENERAL - Review of Systems Review Of Systems: See Below Constitutional: Denies: Fever, Chills, Malaise, Weakness HEENT: Denies: Ear Pain, Throat Pain, Throat Swelling, Vision Change Respiratory: Reports: Shortness of Breath, Cough. Denies: Sputum Cardiovascular: Denies: Chest Pain, Lightheadedness, Syncope GI/Abdominal: Denies: Abdominal Pain, Nausea, Vomiting Musculoskeletal: Reports: No Symptoms Skin: Denies: Cyanosis, Jaundice, Mottled, Pallor, Diaphoresis Neurological: Denies: Confusion, Dizziness, Headache, Seizure, Syncope, Trouble Speaking, Difficulty Walking Psychiatric: Denies: Agitation, Anxiety, Confusion ED EXAM, GENERAL - Physical Exam Exam: See Below Exam Limited By: No Limitations General Appearance: Alert, WD/WN, No Apparent Distress Eye Exam: Bilateral Eye: EOMI, Normal Inspection, PERRL Ears: Normal External Exam, Hearing Grossly Normal Nose: Normal Inspection, No Blood Throat/Mouth: Normal Inspection, Normal Lips, Normal Voice, No Airway Compromise Head: Atraumatic, Normocephalic Neck: Normal Inspection, Full Range of Motion Respiratory/Chest: Crackles (LLL), Wheezing (inspiratory and expiratory throughout). No: Stridor Cardiovascular: Regular Rate, Rhythm, No Murmur Back Exam: Normal Inspection, Full Range of Motion Extremities: Normal Inspection, Normal Range of Motion Neurological: Alert, Oriented, Normal Cognition, No Motor/Sensory Deficits Psychiatric: Normal Affect, Normal Mood Skin Exam: Warm, Dry, Intact, Normal Color, No Rash Course - Vital Signs Last Recorded V/S: Last Vital Signs Temp 97.1 F 01/06/20 15:56 Pulse 97 01/06/20 17:02 Resp 20 01/06/20 15:56 BP 127/79 01/06/20 15:56 Pulse Ox 95 01/06/20 17:02 - Orders/Labs/Meds Orders: Active Orders 24 hr Category Date Time Status RT Aerosol Therapy [RC] ASDIRECTED Care 01/06/20 15:56 Active RT Aerosol Therapy [RC] ASDIRECTED Care 01/06/20 16:56 Ordered RT Aerosol Therapy [RC] ASDIRECTED Care 01/06/20 17:21 Ordered Meds: Medications Discontinued Medications Generic Name Dose Route Start Last Admin Trade Name Vannessa PRN Reason Stop Dose Admin Albuterol 2.5 mg 01/06/20 16:55 01/06/20 17:00 Proventil Neb Soln NEB 01/06/20 16:56 2.5 mg ONETIME ONE Administration Albuterol/Ipratropium 3 ml 01/06/20 15:56 01/06/20 16:05 Duoneb 3.0-0.5 Mg/3 Ml NEB 01/06/20 15:57 3 ml ONETIME ONE Administration Albuterol/Ipratropium 6 ml 01/06/20 17:20 Duoneb 3.0-0.5 Mg/3 Ml NEB 01/06/20 17:21 ONETIME ONE Methylprednisolone Sodium Succinate 125 mg 01/06/20 15:56 01/06/20 16:20 Solu-Medrol IM 01/06/20 15:57 125 mg ONETIME ONE Administration - Re-Assessments/Exams Free Text/Narrative Re-Assessment/Exam: 01/06/20 16:56 Auscultation now shows moderate improvement in expiratory wheezing and rare inspiratory wheeze. Patient feels she is breathing better too. We have done a Duoneb and Solumedrol 125 mg IM and will do albuterol neb now. 01/06/20 17:21 Patient is breathing easier and sats are good. We discussed findings and treatment plan. 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 She is also out of her DuoNeb so we will send two doses home with her. Pt discharged to home in stable condition. Departure - Departure Time of Disposition: 17:21 Disposition: Home, Self-Care 01 Condition: Good Clinical Impression: Acute asthma exacerbation Qualifiers: Asthma severity: moderate Asthma persistence: persistent Qualified Code(s): J45.41 - Moderate persistent asthma with (acute) exacerbation - Discharge Information Referrals: Alanis Leblanc SENIOR QUALITY TECHNICIAN [Primary Care Provider] - Forms: ED Department Discharge, ED Return to Work/School Form Additional Instructions: 1. Drink 8 cups of water daily. 2. Continue your asthma medications as directed. 3. Take the prednisone as directed. 4. Follow up with your PCP in a couple days for recheck and to discuss renewing DuoNeb Rx. Sepsis Event Note - Evaluation Sepsis Screening Result: No Definite Risk - Focused Exam Vital Signs: Vital Signs Temp Pulse Resp BP Pulse Ox Pulse Ox 01/06/20 17:02 97 95 01/06/20 16:27 95 95 01/06/20 15:56 97.1 F 105 H 20 127/79 95 Date Exam was Performed: 01/06/20 Time Exam was Performed: 17:25 - My Orders Last 24 Hours: My Active Orders 01/06/20 15:56 RT Aerosol Therapy [RC] ASDIRECTED 01/06/20 16:56 RT Aerosol Therapy [RC] ASDIRECTED 01/06/20 17:21 RT Aerosol Therapy [RC] ASDIRECTED - Assessment/Plan Last 24 Hours: My Active Orders 01/06/20 15:56 RT Aerosol Therapy [RC] ASDIRECTED 01/06/20 16:56 RT Aerosol Therapy [RC] ASDIRECTED 01/06/20 17:21 RT Aerosol Therapy [RC] ASDIRECTED
[2020-01-06] MEDS: Albuterol 0.083% 2.5 MG/3 ML Neb Soln NEB ONE (17:00)
--- NOTE | 2020-01-06 17:06 | CR ---
[id number] RAD/RAD Chest PA And Lateral EXAM: RAD Chest PA And Lateral INDICATION: COUGH, SHORTNESS OF BREATH. COMPARISON: None. DISCUSSION: Cardiomediastinal silhouette is normal in size and contour. No infiltrate, effusion, pneumothorax, or edema. IMPRESSION: Negative examination of the chest. Maxim Pugh MD 01/06/20 [id number] Thank you for allowing us to participate in the care of your patient.
[2020-01-06 17:22] VITALS: PULSE 97
== END 2020-01-06 17:30 | disposition home or self-care (01) ==
LOC: KA.ED 15:43
DX: J45.41 Moderate persistent asthma with (acute) exacerbation (principal); F41.9 Anxiety disorder, unspecified; F32.9 Major depressive disorder, single episode, unspecified; Z79.899 Other long term (current) drug therapy
CPT/HCPCS: 71046; 94640; 96372; 99284; 99285; J2930; J7613-GY; J7620-GY

== ENCOUNTER 2020-02-09 16:53 | Emergency (ER) | payer MEDICAID ==
[2020-02-09 17:08] VITALS: BP 146/104
--- NOTE | 2020-02-09 17:09 | EDM.PDOC ---
ED HPI GENERAL MEDICAL PROBLEM - General Chief Complaint: Asthma Stated Complaint: ASTHMA Time Seen by Provider: 02/09/20 17:08 Source of Information: Reports: Patient History Limitations: Reports: No Limitations - History of Present Illness INITIAL COMMENTS - FREE TEXT/NARRATIVE: Asthma exacerbation. Completed 5 day course of a tapering Pred pack with initial improvement. Completed that yesterday worsening since. Unable to afford Symbicort for the past month due to high cost. Has been compliant on the remainder of medications for the most part. Denies any risk of . Peak flow meter range 400-700 guideline. States she is been slightly over 400 this past week. Denies any exposures, risks, issues with Covid 19. Works at [employer] here in [place], has not worked since 25 January. No change in duties that would've caused exacerbation. 2 months or so roughly since last exacerbation event that did not require hospitalization area states this typically occurs with changes in exposure whether, as well as see if exhausting Symbicort supply. 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0-0.5 MG/3 ML] 3 ml NEB Q6HR PRN #10 neb [Rx] Budesonide/Formoterol Fumarate [Symbicort 80-4.5 Mcg Inhaler] 2 puff INH BID [History] FLUoxetine HCl [Prozac] 40 mg PO BEDTIME 06/03/19 [History] Albuterol [Proventil Neb Soln] 0.63 mg NEB Q4HRRT PRN 01/06/20 [History] predniSONE [Prednisone] 20 mg PO DAILY #40 tablet 02/09/20 [Rx] Past Medical History - Past Health History Medical/Surgical History: Denies Medical/Surgical History (Denies any changes in history) HEENT History: Reports: Allergic Rhinitis, Impaired Vision, Sinusitis Other HEENT History: wears glasses Cardiovascular History: Reports: None Respiratory History: Reports: Asthma Other Respiratory History: Diagnosed with influeza A on 11/04/18 Gastrointestinal History: Reports: GERD Other Gastrointestinal History: 2018 - slight hiatal hernia Genitourinary History: Reports: None 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 States she quit drinking about 1.5 years ago and has binge drank x1 since quitting. - Infectious Disease History Infectious Disease History: Reports: Chicken Pox, Influenza - Past Surgical History Head Surgeries/Procedures: Reports: None Female Surgical History: Reports: Dilitation & Evacuation Endocrine Surgical History: Reports: None Dermatological Surgical History: Reports: None Social & Family History - Family History Family Medical History: Noncontributory HEENT: Reports: None Cardiac: Reports: NE Respiratory: Reports: Asthma GI: Reports: None : Reports: None OBGYN: Reports: None Musculoskeletal: Reports: None Neurological: Reports: None Psychiatric: Reports: None Endocrine/Metabolic: Reports: Diabetes, type II Hematologic: Reports: None Immunologic: Reports: None Dermatologic: Reports: None Oncologic: Reports: None - Tobacco Use Smoking Status *Q: Light Tobacco Smoker (Has not smoked for at least 2 weeks.) - Caffeine Use Caffeine Use: Reports: Coffee, Soda Other Caffeine Use: regular - Living Situation & Occupation Living situation: Reports: Occupation: Unemployed ED ROS GENERAL - Review of Systems Review Of Systems: Comprehensive ROS is negative, except as noted in HPI. ED EXAM, GENERAL - Physical Exam Exam: See Below General Appearance: Alert, WD/WN, No Apparent Distress Ears: Normal External Exam, Normal Canal, Hearing Grossly Normal, Normal TMs Nose: Normal Inspection, Normal Mucosa, No Blood Throat/Mouth: Normal Inspection, Normal Lips, Normal Teeth, Normal Gums, Normal Oropharynx, Normal Voice, No Airway Compromise Head: Atraumatic, Normocephalic Neck: Normal Inspection, Supple, Non-Tender, Full Range of Motion Respiratory/Chest: Respiratory Distress (Mild), Wheezing, Accessory Muscle Use, Prolonged Expiration Cardiovascular: Normal Peripheral Pulses, Regular Rate, Rhythm, No Edema, No Gallop, No JVD, No Murmur, No Rub GI/Abdominal: Normal Bowel Sounds, Soft, Non-Tender, No Organomegaly, No Distention, No Abnormal Bruit, No Mass (Female) Exam: Deferred Rectal (Female) Exam: Deferred Back Exam: Normal Inspection, Full Range of Motion, NT Extremities: Normal Inspection, Normal Range of Motion, Non-Tender, Normal Capillary Refill, No Pedal Edema Neurological: Alert, Oriented, CN II-XII Intact, Normal Cognition, Normal Gait, Normal Reflexes, No Motor/Sensory Deficits Psychiatric: Normal Affect, Normal Mood Skin Exam: Warm, Dry, Intact, Normal Color, No Rash Lymphatic: No Adenopathy Course - Vital Signs Last Recorded V/S: Last Vital Signs Temp 35.8 C L 02/09/20 16:53 Pulse 82 02/09/20 18:30 Resp 16 02/09/20 18:30 BP 146/104 H 02/09/20 16:53 Pulse Ox 92 L 02/09/20 18:30 - Orders/Labs/Meds Orders: Active Orders 24 hr Category Date Time Status Peripheral IV Care [RC] . DIRECTED Care 02/09/20 17:17 Active Sodium Chloride 0.9% [Saline Flush] Med 02/09/20 17:17 Active 10 ml FLUSH Q8HR PRN Peripheral IV Insertion Adult [OM.PC] Urgent Oth 02/09/20 17:17 Ordered Medication Orders Sodium Chloride (Saline Flush) 10 ml FLUSH Q8HR PRN PRN Reason: keep vein open Labs: Laboratory Tests 02/09/20 02/09/20 Range/Units 17:30 17:30 WBC 16.82 H (5.00-10.00) 10^3/uL RBC 4.87 (3.80-5.50) 10^6/uL Hgb 14.7 (12.0-16.0) g/dL Hct 43.4 (37.0-47.0) % MCV 89.1 (82.0-92.0) fL MCH 30.2 (27.0-31.0) pg MCHC 33.9 (32.0-36.0) g/dL RDW 13.5 (11.5-14.5) % Plt Count 393 (150-400) 10^3/uL MPV 9.5 (7.4-10.4) fL Immature Gran % (Auto) 0.7 (0.0-5.0) % Neut % (Auto) 58.3 (50.0-70.0) % Lymph % (Auto) 29.3 (20.0-40.0) % [place] % (Auto) 6.8 (2.0-8.0) % Eos % (Auto) 4.0 H (1.0-3.0) % Baso % (Auto) 0.9 (0.0-1.0) % Immature Gran # (Auto) 0.11 (0.00-0.50) 10^3/uL Neut # (Auto) 9.80 H (2.50-7.00) 10^3/uL Lymph # (Auto) 4.93 H (1.00-4.00) 10^3/uL [place] # (Auto) 1.15 H (0.10-0.80) 10^3/uL Eos # (Auto) 0.68 H (0.10-0.30) 10^3/uL Baso # (Auto) 0.15 H (0.00-0.10) 10^3/uL Sodium 143 (136-145) mmol/L Potassium 3.3 (3.3-5.3) mmol/L Chloride 105 (98-115) mmol/L Carbon Dioxide 24.2 (21.0-32.0) mmol/L Anion Gap 17.1 H (5-15) mmol/L BUN 14 (6-25) mg/dL Creatinine 0.84 (0.51-1.17) mg/dL Est Cr Clr Drug Dosing 63.95 mL/min Estimated GFR (MDRD) > 60 mL/min Glucose 95 (75 - 99) mg/dL Calcium 8.6 L (8.7-10.3) mg/dL Total Bilirubin 0.2 (0.2-1.0) mg/dL AST 25 (15-37) U/L ALT 37 (12-78) U/L Alkaline Phosphatase 86 (46-116) IU/L Total Protein 7.3 (6.4-8.2) g/dL Albumin 3.40 (3.00-4.80) g/dL Meds: Medications Generic Name Dose Route Start Last Admin Trade Name Freq PRN Reason Stop Dose Admin Sodium Chloride 10 ml 02/09/20 17:17 Saline Flush FLUSH Q8HR PRN keep vein open Discontinued Medications Generic Name Dose Route Start Last Admin Trade Name Freq PRN Reason Stop Dose Admin Sodium Chloride 1,000 mls @ 999 mls/hr 02/09/20 17:31 02/09/20 17:35 Normal Saline IV 02/09/20 18:31 999 mls/hr .BOLUS ONE Administration Methylprednisolone Sodium Succinate 125 mg 02/09/20 17:18 02/09/20 17:35 Solu-Medrol IVPUSH 02/09/20 17:19 125 mg ONETIME ONE Administration Prednisone 100 mg 02/09/20 18:54 Prednisone PO 02/09/20 18:55 ONETIME ONE - Re-Assessments/Exams Free Text/Narrative Re-Assessment/Exam: 02/09/20 17:55 Elevated white count noted with shift. Likely due to steroid implementation in the past week, with possibility of underlying bronchitis pneumonitis development. 02/09/20 17:56 Free Text/Narrative Re-Assessment/Exam: 02/09/20 18:34 Cough is somewhat loose after administration of 600 mL of fluid. States mild improvement. Was resting with eyes closed when I entered the room to discuss lab report respiratory rate was at 20 and regular at that time. When returning now to reassess, using her smartphone with occasional cough nonproductive. Lungs auscultate with expiratory wheeze but not as tight with overall better air exchange. Free Text/Narrative Re-Assessment/Exam: 02/09/20 19:12 Up and ambulate with no difficulty. Respiratory rate did come up slightly but she denies any significant stress. We then discussed options to which she states she would prefer going home and following up with clinic as scheduled and /or as needed. Strongly cautioned on the aspect that if this does not continue to show improvement with the high-dose steroid she needs to contact her provider and be seen on an actual [id number] visit not tell a visit or return to the emergency department as nonimprovement or worsening status would likely lead to an admission. Discussed if fever should develop consideration to implement an antibiotic at that time. We also discussed that if cost-effective budesonide alone for her nebulizer would be better than not having any steroid inhalation as in Symbicort due to cost, and insurance coverage. Lungs auscultate with wheezes still present but much looser in nature with occasional cough on forced exhalation. Departure - Departure Time of Disposition: 19:00 Disposition: Home, Self-Care 01 Condition: Fair Clinical Impression: Asthma exacerbation - Discharge Information *PRESCRIPTION DRUG MONITORING PROGRAM REVIEWED*: Not Applicable *COPY OF PRESCRIPTION DRUG MONITORING REPORT IN PATIENT NED: Not Applicable Prescriptions: predniSONE [Prednisone] 20 mg PO DAILY #40 tablet Referrals: Alanis Leblanc [facility] [Primary Care Provider] - Forms: ED Department Discharge Additional Instructions: Take prednisone as directed. Take all your other medications as previously ordered. You need to increase her fluid hydration. You need recheck in the clinic this coming week if not improving, if improving you do not need to be seen until you near conclusion of the prednisone taper. Contact clinic or return to the emergency Department if fever develops or shortness of breath that is not improved with your medication regimen. These contact social media strategist to see the status of your insurance and your medication coverage as you need to keep these medications constant in your daily treatment plan. Continue peak flows at least daily if not twice daily. Contact your provider if you drop below the 400 you status your low baseline safety range. Sepsis Event Note - Evaluation Sepsis Screening Result: No Definite Risk - Focused Exam Vital Signs: Vital Signs Temp Pulse Resp BP Pulse Ox 02/09/20 18:30 82 16 92 L 02/09/20 18:15 95 18 94 L 02/09/20 16:53 35.8 C L 136 H 28 H 146/104 H 93 L Date Exam was Performed: 02/09/20 Time Exam was Performed: 19:01 - Problem List & Annotations (1) Noncompliance with medication regimen SNOMED Code(s): 523516090 Code(s): Z91.14 - PATIENT'S OTHER NONCOMPLIANCE WITH MEDICATION REGIMEN Status: Chronic Priority: Medium Current Visit: Yes Annotation/Comment:: Due to high cost of medication and insurance restriction. Full compliance to medications that are affordable. (2) Acute asthma exacerbation SNOMED Code(s): 929004923 Code(s): J45.901 - UNSPECIFIED ASTHMA WITH (ACUTE) EXACERBATION Status: Acute Priority: High Current Visit: No Onset Date: ~02/04/20 Qualifiers: Asthma severity: moderate Asthma persistence: persistent Qualified Code(s ): J45.41 - Moderate persistent asthma with (acute) exacerbation (3) Tachycardia with heart rate 121-140 beats per minute SNOMED Code(s): 3130580 Code(s): R00.0 - TACHYCARDIA, UNSPECIFIED Status: Resolved Priority: Medium Current Visit: Yes - Problem List Review Problem List Initiated/Reviewed/Updated: Yes - My Orders Last 24 Hours: My Active Orders 02/09/20 17:17 Peripheral IV Care [RC] . DIRECTED Sodium Chloride 0.9% [Saline Flush] 10 ml FLUSH Q8HR PRN Peripheral IV Insertion Adult [OM.PC] Urgent - Assessment/Plan Last 24 Hours: My Active Orders 02/09/20 17:17 Peripheral IV Care [RC] . DIRECTED Sodium Chloride 0.9% [Saline Flush] 10 ml FLUSH Q8HR PRN Peripheral IV Insertion Adult [OM.PC] Urgent Plan: Take prednisone as directed. Take all your other medications as previously ordered. You need to increase her fluid hydration. You need recheck in the clinic this coming week if not improving, if improving you do not need to be seen until you near conclusion of the prednisone taper. Contact clinic or return to the emergency Department if fever develops or shortness of breath that is not improved with your medication regimen. These contact social media strategist to see the status of your insurance and your medication coverage as you need to keep these medications constant in your daily treatment plan. Continue peak flows at least daily if not twice daily. Contact your provider if you drop below the 400 you status your low baseline safety range.
[2020-02-09] MEDS ORDERED: Sodium Chloride 0.9% 10 ML Syringe FLUSH PRN (17:17)
[2020-02-09] MEDS ORDERED: methylPREDNISolone Sodium Succinate 125 MG/2 ML SDV IVPUSH ONE (17:18)
[2020-02-09] MEDS ORDERED: Sodium Chloride 0.9% 1,000 ML IV ONE (17:31)
--- NOTE | 2020-02-09 17:35 | CR ---
[id number] RAD/RAD Chest PA And Lateral EXAM: FRONTAL AND LATERAL CHEST INDICATION: ASTHMA. COMPARISON: January 06, 2020. DISCUSSION: Chronic mild to moderate bronchial wall thickening compatible with underlying asthma/bronchitis. No new/acute infiltrates or airspace opacities. Normal heart size. No effusions. IMPRESSION: 1. Chronic central bronchial wall thickening. No acute infiltrates. Candido Gee MD 02/09/20 1735 Thank you for allowing us to participate in the care of your patient.
[2020-02-09 18:11] LABS: ANION GAP 17.1 mmol/L (5-15); CHLORIDE,CL 105 mmol/L (98-115); SODIUM,NA 143 mmol/L (136-145)
[2020-02-09 18:40] VITALS: PULSE 82
[2020-02-09] MEDS ORDERED: predniSONE 20 MG Tab PO ONE (18:54)
== END 2020-02-09 19:15 | disposition home or self-care (01) ==
LOC: KA.ED 16:53
DX: J45.901 Unspecified asthma with (acute) exacerbation (principal); F41.9 Anxiety disorder, unspecified; F32.9 Major depressive disorder, single episode, unspecified; F17.200 Nicotine dependence, unspecified, uncomplicated; Z79.899 Other long term (current) drug therapy
CPT/HCPCS: 71046; 80053; 85025; 96374; 99285; A9270; J2930; J7030; 99284

== ENCOUNTER 2020-07-13 10:14 | Emergency (ER) | payer MEDICAID, SELFPAY ==
[2020-07-13 10:28] VITALS: BP 146/89; PULSE 124
--- NOTE | 2020-07-13 10:40 | EDM.PDOC ---
ED HPI GENERAL MEDICAL PROBLEM - General Chief Complaint: General Stated Complaint: chills, fever, cough Time Seen by Provider: 07/13/20 10:39 Source of Information: Reports: Patient History Limitations: Reports: No Limitations - History of Present Illness INITIAL COMMENTS - FREE TEXT/NARRATIVE: Leah, 39-year-old female, awoke today with fever and worsened head pressure. Has developed body aches and general malaise. Experienced nausea but has not had emesis. Has had increasing discomfort with urination, frequency. States compliance with her medications with known history sinusitis, seasonal allergy, and asthma. 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 Also noted at the time of this exposure she was on steroid therapy for her respiratory status. 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 Duration: Getting Worse Location: Reports: Head, Face, Chest, Back Quality: Reports: Burning, Pressure Severity: Moderate Improves with: Reports: None Worsens with: Reports: Breathing, Movement Context: Reports: Sick Contact Associated Symptoms: Reports: Cough, Fever/Chills, Headaches, Nausea/Vomiting, Other (Allergies) - Related Data Allergies Allergy/AdvReac Type Severity Reaction Status Date / Time No Known Drug Allergies Allergy Cannot Verified 02/09/20 17:08 Remember Home Meds: Home Meds Montelukast Sodium [Singulair] 10 mg PO BEDTIME #30 tablet 05/12/16 [Rx] Fluticasone Propionate [Flonase Allergy Relief] 2 spray NASBOTH DAILY 10/23/16 [History] Albuterol Sulfate [Proventil Hfa] 2 puff INH Q4H PRN 11/04/18 [History] Acetaminophen [Acetaminophen Extra Strength] 1,000 mg PO Q6H PRN 11/08/18 [History] Albuterol/Ipratropium [DuoNeb 3.0-0.5 MG/3 ML] 3 ml NEB Q6HR PRN #10 neb 11/11/18 [Rx] Budesonide/Formoterol Fumarate [Symbicort 80-4.5 Mcg Inhaler] 2 puff INH BID 03/09/19 [History] Albuterol [Proventil Neb Soln] 0.63 mg NEB Q4HRRT PRN 01/06/20 [History] Doxycycline Hyclate 100 mg PO BID 10 Days #18 tablet. 07/13/20 [Rx] Past Medical History - Past Health History Medical/Surgical History: Denies Medical/Surgical History HEENT History: Reports: Allergic Rhinitis, Impaired Vision, Sinusitis, Other (See Below) (Seasonal allergies) Other HEENT History: wears glasses Cardiovascular History: Reports: None Respiratory History: Reports: Asthma, Other (See Below) (Seasonal allergies) Other Respiratory History: Diagnosed with influeza A on 11/04/18 Gastrointestinal History: Reports: GERD Other Gastrointestinal History: 2018 - slight hiatal hernia Genitourinary History: Reports: None [employer] 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 States she quit drinking about 1.5 years ago and has binge drank x1 since quitting. Endocrine/Metabolic History: Reports: Obesity/BMI 30+ Hematologic History: Reports: None - Infectious Disease History Infectious Disease History: Reports: Chicken Pox, Helicobacter Pylori - Past Surgical History Head Surgeries/Procedures: Reports: None Female Surgical History: Reports: Dilitation & Evacuation Endocrine Surgical History: Reports: None Dermatological Surgical History: Reports: None - Past Imaging History Past Imaging History: Reports: Xray Social & Family History - Family History Family Medical History: Noncontributory HEENT: Reports: None Cardiac: Reports: [place] Respiratory: Reports: Asthma GI: Reports: None : Reports: None OBGYN: Reports: None Musculoskeletal: Reports: None Neurological: Reports: None Psychiatric: Reports: None Endocrine/Metabolic: Reports: Diabetes, type II Hematologic: Reports: None Immunologic: Reports: None Dermatologic: Reports: None Oncologic: Reports: None - Tobacco Use Smoking Status *Q: Former Smoker Used Tobacco, but Quit: Yes Month/Year Tobacco Last Used: quit 6 months ago - Caffeine Use Caffeine Use: Reports: Coffee, Soda, Tea Other Caffeine Use: regular - Recreational Drug Use Recreational Drug Use: Yes Drug Use in Last 12 Months: Yes Recreational Drug Type: Reports: Marijuana/Hashish Recreational Drug Use Frequency: Not Used In Over 4 Months - Living Situation & Occupation Living situation: Reports: Occupation: Employed ED ROS GENERAL - Review of Systems Review Of Systems: Comprehensive ROS is negative, except as noted in HPI. ED EXAM, GENERAL - Physical Exam Exam: See Below Free Text/Narrative:: Alert, oriented, and freely conversive in no acute distress. PERRLA no icterus no injection, EOM intact. Fullness to the tympanic membranes bilateral with no evidence of infection. Nasal passages are hypertrophied suggestive of allergies which she confirms. Oropharynx shows no erythema, no exudative drainage with mild cobblestoning. Tenderness is noted to the periorbital region the frontal sinuses and lateral facial features. She is tender in the neck with no lymphadenopathy musculature as well as cervical thoracic lumbar spine region is tender to palpation as well as musculature. Thorax is scattered rhonchi on exhalation, mildly prolonged with no significant wheeze appreciated. Cardiac is regular I do not appreciate any murmur. Rotund abdomen soft bowel sounds present no organomegaly appreciated, no tenderness to palpation. No flank pain. There is +1 edema to the lower extremities with an ankle bracelet device around the right ankle. rectal is deferred Course - Vital Signs Last Recorded V/S: Last Vital Signs Temp 37.8 C 07/13/20 10:30 Pulse 124 H 07/13/20 10:21 Resp 24 H 07/13/20 10:21 BP 146/89 H 07/13/20 10:21 Pulse Ox 96 07/13/20 10:21 - Orders/Labs/Meds Orders: Active Orders 24 hr Category Date Time Status CULTURE URINE [RM] Urgent Lab 07/13/20 12:40 Received Isolation [COMM] Routine Oth 07/13/20 10:51 Ordered Labs: Laboratory Tests 07/13/20 07/13/20 07/13/20 Range/Units 10:55 11:07 11:07 WBC 23.10 H (5.00-10.00) 10^3/uL RBC 4.61 (3.80-5.50) 10^6/uL Hgb 13.9 (12.0-16.0) g/dL Hct 42.4 (37.0-47.0) % MCV 92.0 (82.0-92.0) fL MCH 30.2 (27.0-31.0) pg MCHC 32.8 (32.0-36.0) g/dL RDW 14.1 (11.5-14.5) % Plt Count 330 (150-400) 10^3/uL MPV 9.1 (7.4-10.4) fL Immature Gran % (Auto) 0.3 (0.0-5.0) % Neut % (Auto) 86.8 H (50.0-70.0) % Lymph % (Auto) 5.8 L (20.0-40.0) % [place] % (Auto) 6.3 (2.0-8.0) % Eos % (Auto) 0.5 L (1.0-3.0) % Baso % (Auto) 0.3 (0.0-1.0) % Neut # (Auto) 20.03 H (2.50-7.00) 10^3/uL Lymph # (Auto) 1.35 (1.00-4.00) 10^3/uL [place] # (Auto) 1.46 H (0.10-0.80) 10^3/uL Eos # (Auto) 0.11 (0.10-0.30) 10^3/uL Baso # (Auto) 0.07 (0.00-0.10) 10^3/uL Immature Gran # (Auto) 0.08 (0.00-0.50) 10^3/uL Sodium 139 (136-145) mmol/L Potassium 3.5 (3.3-5.3) mmol/L Chloride 102 (98-115) mmol/L Carbon Dioxide 22.3 (21.0-32.0) mmol/L Anion Gap 18.2 H (5-15) mmol/L BUN 11 (6-25) mg/dL Creatinine 0.66 (0.51-1.17) mg/dL Est Cr Clr Drug Dosing 81.39 mL/min Estimated GFR (MDRD) > 60 mL/min Glucose 100 H (75 - 99) mg/dL Lactic Acid (0.4-2.0) mmol/L Calcium 8.2 L (8.7-10.3) mg/dL Total Bilirubin 0.5 (0.2-1.0) mg/dL AST 37 (15-37) U/L ALT 45 (12-78) U/L Alkaline Phosphatase 90 (46-116) IU/L Total Protein 7.3 (6.4-8.2) g/dL Albumin 3.39 (3.00-4.80) g/dL Specimen Type Urine Color (YELLOW) Urine Appearance (CLEAR) Urine pH (5.0-9.0) Ur Specific [place] (1.005-1.030) Urine Protein (NEGATIVE) mg/dL Urine Glucose (UA) (NEGATIVE) mg/dL Urine Ketones (NEGATIVE) mg/dL Urine Occult Blood (NEGATIVE) Urine Nitrite (NEGATIVE) Urine Bilirubin (NEGATIVE) Urine Urobilinogen (0.2-1.0) E.U./dL Ur Leukocyte Esterase (NEGATIVE) Urine RBC (0-5) /HPF Urine WBC (0-5) /HPF Ur Epithelial Cells /LPF Urine Bacteria (NONE TO FEW) /HPF SARS CoV-2 RNA Rapid [place] Negative (NEGATIVE) 07/13/20 07/13/20 Range/Units 11:07 12:40 WBC (5.00-10.00) 10^3/uL RBC (3.80-5.50) 10^6/uL Hgb (12.0-16.0) g/dL Hct (37.0-47.0) % MCV (82.0-92.0) fL MCH (27.0-31.0) pg MCHC (32.0-36.0) g/dL RDW (11.5-14.5) % Plt Count (150-400) 10^3/uL MPV (7.4-10.4) fL Immature Gran % (Auto) (0.0-5.0) % Neut % (Auto) (50.0-70.0) % Lymph % (Auto) (20.0-40.0) % [place] % (Auto) (2.0-8.0) % Eos % (Auto) (1.0-3.0) % Baso % (Auto) (0.0-1.0) % Neut # (Auto) (2.50-7.00) 10^3/uL Lymph # (Auto) (1.00-4.00) 10^3/uL [place] # (Auto) (0.10-0.80) 10^3/uL Eos # (Auto) (0.10-0.30) 10^3/uL Baso # (Auto) (0.00-0.10) 10^3/uL Immature Gran # (Auto) (0.00-0.50) 10^3/uL Sodium (136-145) mmol/L Potassium (3.3-5.3) mmol/L Chloride (98-115) mmol/L Carbon Dioxide (21.0-32.0) mmol/L Anion Gap (5-15) mmol/L BUN (6-25) mg/dL Creatinine (0.51-1.17) mg/dL Est Cr Clr Drug Dosing mL/min Estimated GFR (MDRD) mL/min Glucose (75 - 99) mg/dL Lactic Acid 0.8 (0.4-2.0) mmol/L Calcium (8.7-10.3) mg/dL Total Bilirubin (0.2-1.0) mg/dL AST (15-37) U/L ALT (12-78) U/L Alkaline Phosphatase (46-116) IU/L Total Protein (6.4-8.2) g/dL Albumin (3.00-4.80) g/dL Specimen Type Urincc Urine Color Yellow (YELLOW) Urine Appearance Slightly cloudy H (CLEAR) Urine pH 7.0 (5.0-9.0) Ur Specific [place] 1.020 (1.005-1.030) Urine Protein Negative (NEGATIVE) mg/dL Urine Glucose (UA) Negative (NEGATIVE) mg/dL Urine Ketones Negative (NEGATIVE) mg/dL Urine Occult Blood Trace-intact H (NEGATIVE) Urine Nitrite Negative (NEGATIVE) Urine Bilirubin Negative (NEGATIVE) Urine Urobilinogen 0.2 (0.2-1.0) E.U./dL Ur Leukocyte Esterase Trace H (NEGATIVE) Urine RBC 5-10 H (0-5) /HPF Urine WBC 5-10 H (0-5) /HPF Ur Epithelial Cells Few /LPF Urine Bacteria Few (NONE TO FEW) /HPF SARS CoV-2 RNA Rapid [place] (NEGATIVE) Meds: Medications Discontinued Medications Generic Name Dose Route Start Last Admin Trade Name Freq PRN Reason Stop Dose Admin Doxycycline Hyclate 200 mg 07/13/20 13:13 07/13/20 13:23 Vibramycin PO 07/13/20 13:14 200 mg ONETIME ONE Administration Departure - Departure Time of Disposition: : Disposition: Home, Self-Care 01 Condition: Good Clinical Impression: Generalized body aches, Environmental allergies, Cough Sinusitis Qualifiers: Sinusitis location: maxillary Chronicity: acute Recurrence: recurrent Qualified Code(s): J01.01 - Acute recurrent maxillary sinusitis - Discharge Information *PRESCRIPTION DRUG MONITORING PROGRAM REVIEWED*: Not Applicable *COPY OF PRESCRIPTION DRUG MONITORING REPORT IN PATIENT NED: Not Applicable Prescriptions: Doxycycline Hyclate 100 mg PO BID 10 Days #18 tablet. Instructions: Cough, Adult, [id number], Sinusitis, Adult, [id number], How to Perform a Sinus Rinse, [id number] Forms: ED Department Discharge, ED Return to Work/School Form Additional Instructions: Your COVID 19 test as well as influenza have returned negative. Your white count elevation may be exacerbated secondary of the recent steroid use along with your sinus infection. In reviewing laboratory analysis here at our facility, you have chronically been elevated with only 2 findings in a normal range. I realize these of been associated with illness but my concern is that you need to have CBC and a work- up when you are completely healthy to rule out some form of chronic leukemia status. Continue all of your medications that you are currently using as directed. We are starting you on doxycycline 100 mg twice daily for 10 days to treat the sinus infection and elevated blood count. You need to follow-up with your clinic if not improving or if worsening this coming week with the treatment on antibiotic. You need to follow-up with your clinic in 2 weeks for complete recheck including your blood work. Make sure you increase your water intake and maintain healthy lifestyle, include the use of your mask as you have been doing. Sepsis Event Note (ED) - Evaluation Sepsis Screening Result: No Definite Risk - Focused Exam Vital Signs: Vital Signs Temp Temp Pulse Resp BP Pulse Ox 07/13/20 10:30 37.8 C 07/13/20 10:21 36.2 C 124 H 24 H 146/89 H 96 - Problem List & Annotations (1) Generalized body aches SNOMED Code(s): 05033923 Code(s): R52 - PAIN, UNSPECIFIED Status: Acute Priority: Medium (2) Environmental allergies SNOMED Code(s): 177627314 Code(s): Z91.09 - OTH ALLERGY STATUS, OTH THAN TO DRUGS AND BIOLG SUBSTANCES Status: Chronic Priority: Medium (3) History of fever SNOMED Code(s): 386430934 Code(s): Z87.898 - PERSONAL HISTORY OF OTHER SPECIFIED CONDITIONS Status: Chronic Priority: Medium (4) Nausea alone SNOMED Code(s): 478694493 Code(s): R11.0 - NAUSEA Status: Acute Priority: Medium (5) Urine frequency SNOMED Code(s): 904331591 Code(s): R35.0 - FREQUENCY OF MICTURITION Status: Acute Priority: Medium (6) Cough SNOMED Code(s): 71848340 Code(s): R05 - COUGH Status: Acute Priority: High (7) History of asthma SNOMED Code(s): 528186224 Code(s): Z87.09 - PERSONAL HISTORY OF OTHER DISEASES OF THE RESPIRATORY SYSTEM Status: Chronic Priority: Medium (8) Sinusitis SNOMED Code(s): 49355952 Code(s): J32.9 - CHRONIC SINUSITIS, UNSPECIFIED Status: Acute Qualifiers: Sinusitis location: maxillary Chronicity: acute Recurrence: recurrent Qualified Code(s): J01.01 - Acute recurrent maxillary sinusitis - Problem List Review Problem List Initiated/Reviewed/Updated: Yes - My Orders Last 24 Hours: My Active Orders 07/13/20 10:51 Isolation [COMM] Routine 07/13/20 12:40 CULTURE URINE [RM] Urgent - Assessment/Plan Last 24 Hours: My Active Orders 07/13/20 10:51 Isolation [COMM] Routine 07/13/20 12:40 CULTURE URINE [RM] Urgent Plan: Your COVID 19 test as well as influenza have returned negative. Your white count elevation may be exacerbated secondary of the recent steroid use along with your sinus infection. In reviewing laboratory analysis here at our facility, you have chronically been elevated with only 2 findings in a normal range. I realize these of been associated with illness but my concern is that you need to have CBC and a work- up when you are completely healthy to rule out some form of chronic leukemia status. Continue all of your medications that you are currently using as directed. We are starting you on doxycycline 100 mg twice daily for 10 days to treat the sinus infection and elevated blood count. You need to follow-up with your clinic if not improving or if worsening this coming week with the treatment on antibiotic. You need to follow-up with your clinic in 2 weeks for complete recheck including your blood work. Make sure you increase your water intake and maintain healthy lifestyle, include the use of your mask as you have been doing.
--- NOTE | 2020-07-13 11:52 | CR ---
[id number] RAD/RAD Chest PA or AP 1V EXAM: SINGLE VIEW CHEST. INDICATION: COUGH FEVER COMPARISON: CORRELATION IS MADE WITH FEBRUARY 09, 2020 FINDINGS: The lungs are clear The cardiac silhouette is stable Surgical changes are seen in the abdomen IMPRESSION: NO PNEUMONIA OR EDEMA Surjit Chauhan MD 07/13/20 [id number] Thank you for allowing us to participate in the care of your patient.
[2020-07-13 11:57] LABS: ANION GAP 18.2 mmol/L (5-15); CHLORIDE,CL 102 mmol/L (98-115); SODIUM,NA 139 mmol/L (136-145)
== END 2020-07-13 13:30 | disposition home or self-care (01) ==
LOC: KA.ED 10:14
DX: J01.01 Acute recurrent maxillary sinusitis (principal); M79.10 Myalgia, unspecified site; R05 Cough; F41.9 Anxiety disorder, unspecified; F32.9 Major depressive disorder, single episode, unspecified; K21.9 Gastro-esophageal reflux disease without esophagitis; E66.9 Obesity, unspecified; J45.909 Unspecified asthma, uncomplicated; Z20.828 Contact with and (suspected) exposure to other viral communicable diseases; Z87.891 Personal history of nicotine dependence; Z79.899 Other long term (current) drug therapy; Z68.42 Body mass index [BMI] 45.0-49.9, adult
CPT/HCPCS: 71045; 80053; 81001; 83605; 85025; 87086; 87088; 87804; 99283-25; 99284; A9270-GY; U0002

== ENCOUNTER 2022-02-28 23:40 | Emergency (ER) | payer MEDICAID, OTHER ==
[2022-03-01 00:04] VITALS: BP 139/100; PULSE 123
[2022-03-01] MEDS ORDERED: Bacitracin/Neomycin/Polymyxin B Oint 0.9 GM U/D Packet ONE (01:16)
[2022-03-01] MEDS ORDERED: Diphtheria,Pertussis(Acell),Tetanus Vaccine 0.5 ML Syringe IM ONE (01:19)
== END 2022-03-01 01:30 | disposition home or self-care (01) ==
LOC: KA.ED 23:40
DX: S01.01XA Laceration without foreign body of scalp, initial encounter (principal); K21.9 Gastro-esophageal reflux disease without esophagitis; E66.9 Obesity, unspecified; Z68.42 Body mass index [BMI] 45.0-49.9, adult; Z72.0 Tobacco use; Z23 Encounter for immunization; Y04.0XXA Assault by unarmed brawl or fight, initial encounter
CPT/HCPCS: 12002; 90471; 90715; 99283; 99283-25

== ENCOUNTER 2022-10-03 11:52 | Emergency (ER) | payer MEDICAID ==
[2022-10-03 12:19] VITALS: BP 140/91; PULSE 100
[2022-10-03] MEDS ORDERED: Albuterol 0.083% 2.5 MG/3 ML Neb Soln NEB ONE (12:19)
[2022-10-03 13:01] LABS: ANION GAP 9.5 mmol/L (5-15)
[2022-10-03 13:30] LABS: CORONAVIRUS COVID-19 NAA NEGATIVE (NEGATIVE); RESPIRATORY SYNCYTIAL VIR NAA POSITIVE (NEGATIVE)
[2022-10-03] MEDS ORDERED: methylPREDNISolone Sodium Succinate 125 MG/2 ML SDV IM ONE (13:43)
== END 2022-10-03 14:00 | disposition home or self-care (01) ==
LOC: KA.ED 11:52
DX: R06.2 Wheezing (principal); B97.4 Respiratory syncytial virus as the cause of diseases classified elsewhere; E66.9 Obesity, unspecified; Z68.42 Body mass index [BMI] 45.0-49.9, adult; Z79.899 Other long term (current) drug therapy; Z20.822 Contact with and (suspected) exposure to COVID-19
CPT/HCPCS: 0241U; 36415; 71046; 80048; 85025; 96372; 99284; 99285; J2930; J7613-GY

== ENCOUNTER 2023-04-23 14:40 | Emergency (ER) | payer SELFPAY ==
[2023-04-23 15:02] VITALS: BP 130/95
[2023-04-23] MEDS ORDERED: Albuterol/Ipratropium 3.0-0.5 MG/3 ML Neb Soln NEB ONE (15:25)
[2023-04-23] MEDS ORDERED: methylPREDNISolone Sodium Succinate 125 MG/2 ML SDV IM ONE (15:26)
[2023-04-23 15:32] LABS: BASOPHILS ABSOLUTE AUTO 0.05 10^3/uL (0.00-0.10); BASOPHILS PERCENT AUTO 0.4 % (0.0-1.0); EOSINOPHILS ABSOLUTE AUTO 0.49 10^3/uL (0.10-0.30); HEMATOCRIT 39.4 % (37.0-47.0); HEMOGLOBIN 12.9 g/dL (12.0-16.0); IMMATURE GRAN ABSOLUTE AUTO 0.04 10^3/uL (0.00-0.50); IMMATURE GRAN PERCENT AUTO 0.3 % (0.0-5.0); LYMPHOCYTES ABSOLUTE AUTO 2.96 10^3/uL (1.00-4.00); LYMPHOCYTES PERCENT AUTO 24.2 % (20.0-40.0); MEAN CORPUSCULAR HEMOGLOBIN 28.9 pg (27.0-31.0); MEAN CORPUSCULAR HGB CONC 32.7 g/dL (32.0-36.0); MEAN CORPUSCULAR VOLUME 88.3 fL (82.0-92.0); MONOCYTES ABSOLUTE AUTO 0.54 10^3/uL (0.10-0.80); MONOCYTES PERCENT AUTO 4.4 % (2.0-8.0); NEUTROPHILS ABSOLUTE AUTO 8.14 10^3/uL (2.50-7.00); NEUTROPHILS PERCENT AUTO 66.7 % (50.0-70.0); PLATELET COUNT,PLT 376 10^3/uL (150-400); RED BLOOD CELL COUNT 4.46 10^6/uL (3.80-5.50); WHITE BLOOD CELL COUNT,WBC 12.22 10^3/uL (5.00-10.00)
[2023-04-23 15:48] LABS: ALBUMIN 2.92 g/dL (3.40-5.00); ANION GAP 13.2 mmol/L (5-15); BILIRUBIN TOTAL 0.4 mg/dL (0.2-1.0); CALCIUM 8.3 mg/dL (8.7-10.3); CARBON DIOXIDE,CO2 26.8 mmol/L (21.0-32.0); CREATININE 0.84 mg/dL (0.51-1.17); EST CRCL DRUG DOSING (CG) 62.03 mL/min
[2023-04-23 15:53] VITALS: PULSE 91
== END 2023-04-23 17:05 | disposition home or self-care (01) ==
LOC: KA.ED 14:40
DX: J45.31 Mild persistent asthma with (acute) exacerbation (principal); E66.9 Obesity, unspecified; Z68.42 Body mass index [BMI] 45.0-49.9, adult; Z91.148 Patient's other noncompliance with medication regimen for other reason; Z98.890 Other specified postprocedural states; Z91.048 Other nonmedicinal substance allergy status; Z79.899 Other long term (current) drug therapy
CPT/HCPCS: 36415; 71045; 80053; 83605; 85025; 94640; 96372; 99285; J2930; 99284; J7620-GY

== ENCOUNTER 2023-06-19 15:20 | Emergency (ER) | payer SELFPAY ==
[2023-06-19] MEDS: methylPREDNISolone Sodium Succinate 125 MG/2 ML SDV IVPUSH ONE (15:51)
[2023-06-19] MEDS ORDERED: Water For Injection, Sterile 20 ML ONE (15:52)
[2023-06-19 15:57] LABS: BASOPHILS PERCENT AUTO 0.9 % (0.0-1.0); EOSINOPHILS ABSOLUTE AUTO 0.56 10^3/uL (0.10-0.30); EOSINOPHILS PERCENT AUTO 5.2 % (1.0-3.0); HEMOGLOBIN 14.6 g/dL (12.0-16.0); IMMATURE GRAN ABSOLUTE AUTO 0.01 10^3/uL (0.00-0.50); IMMATURE GRAN PERCENT AUTO 0.1 % (0.0-5.0); LYMPHOCYTES ABSOLUTE AUTO 2.87 10^3/uL (1.00-4.00); LYMPHOCYTES PERCENT AUTO 26.4 % (20.0-40.0); MEAN CORPUSCULAR HEMOGLOBIN 28.9 pg (27.0-31.0); MEAN CORPUSCULAR HGB CONC 33.2 g/dL (32.0-36.0); MEAN CORPUSCULAR VOLUME 87.1 fL (82.0-92.0); MEAN PLATELET VOLUME 9.2 fL (7.4-10.4); MONOCYTES ABSOLUTE AUTO 0.49 10^3/uL (0.10-0.80); MONOCYTES PERCENT AUTO 4.5 % (2.0-8.0); NEUTROPHILS ABSOLUTE AUTO 6.84 10^3/uL (2.50-7.00); NEUTROPHILS PERCENT AUTO 62.9 % (50.0-70.0); PLATELET COUNT,PLT 398 10^3/uL (150-400); RED BLOOD CELL COUNT 5.05 10^6/uL (3.80-5.50); RED CELL DISTRIBUTION WIDTH 13.4 % (11.5-14.5); WHITE BLOOD CELL COUNT,WBC 10.87 10^3/uL (5.00-10.00)
[2023-06-19] MEDS: Albuterol/Ipratropium 3.0-0.5 MG/3 ML Neb Soln NEB ONE (15:58)
[2023-06-19] MEDS ORDERED: Sodium Chloride 0.9% 10 ML Syringe FLUSH PRN (16:06)
[2023-06-19 16:10] VITALS: BP 126/84; PULSE 88
[2023-06-19 16:14] LABS: ANION GAP 16.5 mmol/L (5-15); CARBON DIOXIDE,CO2 23.2 mmol/L (21.0-32.0); CREATININE 0.75 mg/dL (0.51-1.17); EST CRCL DRUG DOSING (CG) 104.59 mL/min; POTASSIUM,K 3.7 mmol/L (3.5-5.1)
== END 2023-06-19 16:32 | disposition home or self-care (01) ==
LOC: KA.ED 15:20
DX: J45.31 Mild persistent asthma with (acute) exacerbation (principal); J45.909 Unspecified asthma, uncomplicated; E66.9 Obesity, unspecified; Z68.33 Body mass index [BMI] 33.0-33.9, adult; Z91.048 Other nonmedicinal substance allergy status; Z79.899 Other long term (current) drug therapy; Z98.890 Other specified postprocedural states
CPT/HCPCS: 71046; 80048; 85025; 96374; 99284; 99285-25; J2930; J7620-GY

== ENCOUNTER 2023-09-08 11:16 | Emergency (ER) | payer SELFPAY ==
[2023-09-08] MEDS ORDERED: Albuterol/Ipratropium 3.0-0.5 MG/3 ML Neb Soln NEB ONE (11:30)
[2023-09-08] MEDS ORDERED: predniSONE 20 MG Tab PO ONE (11:30)
[2023-09-08 13:10] VITALS: BP 125/57; PULSE 95
== END 2023-09-08 12:55 | disposition home or self-care (01) ==
LOC: KA.ED 11:16
DX: R06.2 Wheezing (principal); J45.901 Unspecified asthma with (acute) exacerbation; E66.9 Obesity, unspecified; Z68.42 Body mass index [BMI] 45.0-49.9, adult; Z79.899 Other long term (current) drug therapy; Z91.09 Other allergy status, other than to drugs and biological substances; Z87.891 Personal history of nicotine dependence
CPT/HCPCS: 94640; 99284; J7512; J7620-GY

== ENCOUNTER 2023-10-20 18:11 | Inpatient (IN) | payer SELFPAY ==
[2023-10-20] MEDS ORDERED: Sodium Chloride 0.9% 10 ML Syringe FLUSH PRN (18:20)
[2023-10-20] MEDS ORDERED: Acetaminophen 500 MG Tab PO ONE (18:22)
[2023-10-20] MEDS ORDERED: Sodium Chloride 0.9% 1,000 ML IV ONE (18:27)
[2023-10-20 19:13] LABS: BASOPHILS ABSOLUTE AUTO 0.06 10^3/uL (0.00-0.10); EOSINOPHILS ABSOLUTE AUTO 0.08 10^3/uL (0.10-0.30); EOSINOPHILS PERCENT AUTO 1.3 % (1.0-3.0); HEMATOCRIT 45.4 % (37.0-47.0); HEMOGLOBIN 14.9 g/dL (12.0-16.0); IMMATURE GRAN ABSOLUTE AUTO 0.02 10^3/uL (0.00-0.50); IMMATURE GRAN PERCENT AUTO 0.3 % (0.0-5.0); LYMPHOCYTES ABSOLUTE AUTO 0.59 10^3/uL (1.00-4.00); LYMPHOCYTES PERCENT AUTO 9.6 % (20.0-40.0); MEAN CORPUSCULAR HEMOGLOBIN 28.8 pg (27.0-31.0); MEAN CORPUSCULAR HGB CONC 32.8 g/dL (32.0-36.0); MEAN CORPUSCULAR VOLUME 87.8 fL (82.0-92.0); MEAN PLATELET VOLUME 9.4 fL (7.4-10.4); MONOCYTES ABSOLUTE AUTO 0.53 10^3/uL (0.10-0.80); MONOCYTES PERCENT AUTO 8.6 % (2.0-8.0); NEUTROPHILS ABSOLUTE AUTO 4.86 10^3/uL (2.50-7.00); NEUTROPHILS PERCENT AUTO 79.2 % (50.0-70.0); PLATELET COUNT,PLT 363 10^3/uL (150-400); RED BLOOD CELL COUNT 5.17 10^6/uL (3.80-5.50); RED CELL DISTRIBUTION WIDTH 13.9 % (11.5-14.5); WHITE BLOOD CELL COUNT,WBC 6.14 10^3/uL (5.00-10.00)
[2023-10-20 19:32] LABS: ALANINE AMINOTRANSFERASE,ALT 22 U/L (14-63); ALBUMIN 3.25 g/dL (3.40-5.00); ALKALINE PHOSPHATASE 67 U/L (46-116); ANION GAP 13.3 mmol/L (5-15); ASPARTATE AMNIOTRANSFERASE,AST 25 U/L (15-37); BILIRUBIN TOTAL 0.3 mg/dL (0.2-1.0); BLOOD UREA NITROGEN,BUN 5 mg/dL (7-18); CALCIUM 8.3 mg/dL (8.7-10.3); CARBON DIOXIDE,CO2 27.7 mmol/L (21.0-32.0); CHLORIDE,CL 99 mmol/L (98-107); CREATININE 0.86 mg/dL (0.51-1.17); EST CRCL DRUG DOSING (CG) 59.96 mL/min; GLUCOSE RANDOM 90 mg/dL (70-140); PROTEIN TOTAL,TP 7.4 g/dL (6.4-8.2); SODIUM,NA 136 mmol/L (136-145)
[2023-10-20 19:33] LABS: ESTIMATED GFR 85 mL/min (>=60)
[2023-10-20 19:59] LABS: B-TYPE NATRIURETIC PEPTIDE,BNP < 5 pg/mL (0-100)
[2023-10-20 20:06] LABS: INFLUENZA A NAA POSITIVE (NEGATIVE); INFLUENZA B NAA NEGATIVE (NEGATIVE); RESPIRATORY SYNCYTIAL VIR NAA NEGATIVE (NEGATIVE)
[2023-10-20 20:10] LABS: CORONAVIRUS COVID-19 NAA NEGATIVE (NEGATIVE)
[2023-10-20] MEDS ORDERED: Acetaminophen 325 MG Tab PO PRN (22:22)
[2023-10-20] MEDS ORDERED: Temazepam 15 MG Cap PO PRN (22:22)
[2023-10-20] MEDS ORDERED: Ondansetron 4 MG/2 ML SDV IV PRN (22:22)
[2023-10-20] MEDS ORDERED: Albuterol/Ipratropium 3.0-0.5 MG/3 ML Neb Soln NEB PRN (22:22)
[2023-10-20] MEDS ORDERED: predniSONE 20 MG Tab PO ONE (22:50)
[2023-10-20] MEDS: Oseltamivir 75 MG Cap PO SCH (23:08)
[2023-10-21] MEDS: Albuterol/Ipratropium 3.0-0.5 MG/3 ML Neb Soln NEB SCH ×6 (01:35→21:46)
[2023-10-21 06:38] LABS: APPEARANCE,URINE CLEAR (CLEAR); BILIRUBIN,URINE NEGATIVE (NEGATIVE); COLOR,URINE YELLOW (YELLOW); GLUCOSE,URINE NEGATIVE (NEGATIVE); KETONES,URINE 15 mg/dL (NEGATIVE); LEUKOCYTE ESTERASE,URINE NEGATIVE (NEGATIVE); NITRITE,URINE NEGATIVE (NEGATIVE); OCCULT BLOOD,URINE SMALL (NEGATIVE); PH,URINE 6.5 (5.0-9.0); PROTEIN,URINE NEGATIVE (NEGATIVE); UROBILINOGEN,URINE 0.2 E.U./dL (0.2-1.0)
[2023-10-21 06:49] LABS: BACTERIA,URINE RARE /HPF (NONE TO FEW); EPITHELIAL CELLS,URINE FEW /LPF; RBC,URINE 0-5 /HPF (0-5); WBC,URINE 0-5 /HPF (0-5)
[2023-10-21 07:13] LABS: BASOPHILS ABSOLUTE AUTO 0.01 10^3/uL (0.00-0.10); BASOPHILS PERCENT AUTO 0.1 % (0.0-1.0); EOSINOPHILS ABSOLUTE AUTO 0.05 10^3/uL (0.10-0.30); EOSINOPHILS PERCENT AUTO 0.7 % (1.0-3.0); HEMATOCRIT 45.5 % (37.0-47.0); HEMOGLOBIN 14.6 g/dL (12.0-16.0); IMMATURE GRAN ABSOLUTE AUTO 0.02 10^3/uL (0.00-0.50); IMMATURE GRAN PERCENT AUTO 0.3 % (0.0-5.0); LYMPHOCYTES PERCENT AUTO 5.6 % (20.0-40.0); MEAN CORPUSCULAR HEMOGLOBIN 28.5 pg (27.0-31.0); MEAN CORPUSCULAR HGB CONC 32.1 g/dL (32.0-36.0); MEAN CORPUSCULAR VOLUME 88.7 fL (82.0-92.0); MEAN PLATELET VOLUME 8.8 fL (7.4-10.4); MONOCYTES ABSOLUTE AUTO 0.08 10^3/uL (0.10-0.80); MONOCYTES PERCENT AUTO 1.1 % (2.0-8.0); NEUTROPHILS ABSOLUTE AUTO 6.57 10^3/uL (2.50-7.00); NEUTROPHILS PERCENT AUTO 92.2 % (50.0-70.0); PLATELET COUNT,PLT 353 10^3/uL (150-400); RED BLOOD CELL COUNT 5.13 10^6/uL (3.80-5.50); RED CELL DISTRIBUTION WIDTH 13.9 % (11.5-14.5); WHITE BLOOD CELL COUNT,WBC 7.13 10^3/uL (5.00-10.00)
[2023-10-21 07:29] LABS: CALCIUM 8.5 mg/dL (8.7-10.3); CARBON DIOXIDE,CO2 26.4 mmol/L (21.0-32.0); CREATININE 0.72 mg/dL (0.51-1.17); EST CRCL DRUG DOSING (CG) 71.62 mL/min; POTASSIUM,K 4.4 mmol/L (3.5-5.1)
[2023-10-21] MEDS: predniSONE 20 MG Tab PO SCH (08:40)
[2023-10-21] MEDS: Formoterol/Mometasone 100-5 MCG 8.8 GM Inhaler IH SCH ×2 (08:40→21:46)
[2023-10-21] MEDS: Enoxaparin 40 MG/0.4 ML Syringe SUBCUT SCH (08:41)
[2023-10-21] MEDS: Oseltamivir 75 MG Cap PO SCH ×2 (08:41→21:45)
[2023-10-21] MEDS ORDERED: Pantoprazole 40 MG Tab.CR PO SCH (21:00)
[2023-10-21] MEDS ORDERED: Montelukast 10 MG Tab PO SCH (21:00)
[2023-10-22] MEDS: Albuterol/Ipratropium 3.0-0.5 MG/3 ML Neb Soln NEB SCH ×3 (02:03→08:29)
[2023-10-22] MEDS: Formoterol/Mometasone 100-5 MCG 8.8 GM Inhaler IH SCH (08:29)
[2023-10-22] MEDS: Oseltamivir 75 MG Cap PO SCH (08:29)
[2023-10-22] MEDS: predniSONE 20 MG Tab PO SCH (08:29)
[2023-10-22] MEDS: Enoxaparin 40 MG/0.4 ML Syringe SUBCUT SCH (08:29)
[2023-10-22 11:32] VITALS: BP 133/79; PULSE 82
== END 2023-10-22 11:30 | disposition home or self-care (01) | DRG 193 ==
LOC: KA.ED 18:11 → KA.MS 20:34
PROVIDERS: ADMIT Family Medicine; ATTEND Family Medicine
DX: J10.1 Influenza due to other identified influenza virus with other respiratory manifestations (principal); J96.01 Acute respiratory failure with hypoxia; J45.41 Moderate persistent asthma with (acute) exacerbation; Z68.42 Body mass index [BMI] 45.0-49.9, adult; K21.9 Gastro-esophageal reflux disease without esophagitis; E66.9 Obesity, unspecified; F10.20 Alcohol dependence, uncomplicated; R30.0 Dysuria; Z11.52 Encounter for screening for COVID-19; Z79.51 Long term (current) use of inhaled steroids; Z79.899 Other long term (current) drug therapy; Z87.891 Personal history of nicotine dependence; Z98.890 Other specified postprocedural states; Z88.8 Allergy status to other drugs, medicaments and biological substances
CPT/HCPCS: 0241U; 36415; 71045; 80048; 80053; 81001; 83880; 84484; 85025; 85379; 87040; 93005; 93010; 94640; 99223-GT; 99233-GT; 99238-GT; 99284; A9270-GY; J1650; J7030; J7512; J7620-GY; Q3014

== ENCOUNTER 2024-07-31 14:39 | Emergency (ER) | payer SELFPAY ==
[2024-07-31 14:52] VITALS: BP 131/93; PULSE 92
[2024-07-31 15:09] LABS: BASOPHILS ABSOLUTE AUTO 0.08 10^3/uL (0.00-0.10); BASOPHILS PERCENT AUTO 0.6 % (0.0-1.0); EOSINOPHILS ABSOLUTE AUTO 0.41 10^3/uL (0.10-0.30); EOSINOPHILS PERCENT AUTO 2.9 % (1.0-3.0); HEMATOCRIT 41.8 % (37.0-47.0); HEMOGLOBIN 13.7 g/dL (12.0-16.0); IMMATURE GRAN ABSOLUTE AUTO 0.03 10^3/uL (0.00-0.50); IMMATURE GRAN PERCENT AUTO 0.2 % (0.0-5.0); LYMPHOCYTES ABSOLUTE AUTO 2.72 10^3/uL (1.00-4.00); LYMPHOCYTES PERCENT AUTO 19.5 % (20.0-40.0); MEAN CORPUSCULAR HGB CONC 32.8 g/dL (32.0-36.0); MEAN CORPUSCULAR VOLUME 88.6 fL (82.0-92.0); MEAN PLATELET VOLUME 9.1 fL (7.4-10.4); MONOCYTES ABSOLUTE AUTO 0.61 10^3/uL (0.10-0.80); MONOCYTES PERCENT AUTO 4.4 % (2.0-8.0); NEUTROPHILS ABSOLUTE AUTO 10.07 10^3/uL (2.50-7.00); NEUTROPHILS PERCENT AUTO 72.4 % (50.0-70.0); PLATELET COUNT,PLT 354 10^3/uL (150-400); RED BLOOD CELL COUNT 4.72 10^6/uL (3.80-5.50); RED CELL DISTRIBUTION WIDTH 13.5 % (11.5-14.5); WHITE BLOOD CELL COUNT,WBC 13.92 10^3/uL (5.00-10.00)
[2024-07-31 15:26] LABS: ALBUMIN 2.92 g/dL (3.40-5.00); BILIRUBIN TOTAL 0.4 mg/dL (0.2-1.0); CALCIUM 8.5 mg/dL (8.7-10.3); CARBON DIOXIDE,CO2 27.6 mmol/L (21.0-32.0); CREATININE 0.78 mg/dL (0.51-1.17); EST CRCL DRUG DOSING (CG) 66.11 mL/min; POTASSIUM,K 3.6 mmol/L (3.5-5.1); PROTEIN TOTAL,TP 6.9 g/dL (6.4-8.2)
[2024-07-31] MEDS: Ondansetron 4 MG/2 ML SDV IVPUSH ONE (15:26)
[2024-07-31] MEDS: Ketorolac 30 MG/ML SDV IVPUSH ONE (15:28)
[2024-07-31] MEDS: Iopamidol 755 Mg/ML 100 ML Bottle IV ONE (15:39)
[2024-07-31] MEDS: Sodium Chloride 0.9% 50 ML IV SCH (15:39)
[2024-07-31] MEDS: Sodium Chloride 0.9% 10 ML Syringe FLUSH PRN (15:39)
[2024-07-31] MEDS: Sodium Chloride 0.9% 1,000 ML IV ONE (15:40)
[2024-07-31 15:47] LABS: APPEARANCE,URINE CLEAR (CLEAR); BILIRUBIN,URINE NEGATIVE (NEGATIVE); COLOR,URINE YELLOW (YELLOW); GLUCOSE,URINE NEGATIVE (NEGATIVE); KETONES,URINE NEGATIVE (NEGATIVE); LEUKOCYTE ESTERASE,URINE NEGATIVE (NEGATIVE); NITRITE,URINE NEGATIVE (NEGATIVE); OCCULT BLOOD,URINE TRACE-INTACT (NEGATIVE); PH,URINE 7.5 (5.0-9.0); PROTEIN,URINE NEGATIVE (NEGATIVE); UROBILINOGEN,URINE 0.2 E.U./dL (0.2-1.0)
[2024-07-31 15:56] LABS: BACTERIA,URINE RARE /HPF (NONE TO FEW); EPITHELIAL CELLS,URINE FEW /LPF; RBC,URINE 0-5 /HPF (0-5); WBC,URINE 0-5 /HPF (0-5)
== END 2024-07-31 17:15 | disposition home or self-care (01) ==
LOC: KA.ED 14:39
DX: K80.20 Calculus of gallbladder without cholecystitis without obstruction (principal); E66.9 Obesity, unspecified; Z91.048 Other nonmedicinal substance allergy status; Z79.899 Other long term (current) drug therapy; Z68.42 Body mass index [BMI] 45.0-49.9, adult
CPT/HCPCS: 74177; 80053; 81001; 83690; 85025; 96361; 96374; 96375; 99284; 99284-25; J1885; J2405; J3490; J7030; Q9967